=== PATIENT | male | born 1935 ===

== ENCOUNTER 2021-06-24 16:57 | Inpatient (IN) | payer MEDICARE ==
[~2021-06-24] VITALS: Ht 190.5 cm; Wt 73.8 kg
[2021-06-24 17:27] LABS: BASE EXCESS COOX 1 mmol/L (-3-3); HCO3 COOX 26 mmol/L (21-28); METHEMOGLOBIN 0.4 % (0.0-1.9); OXYHEMOGLOBIN 98.7 %; PCO2 COOX 41 mmHg (35-46); PO2 COOX 299 mmHg (65-108); SAT O2 COOX 99 % (92-99)
[2021-06-24 17:50] LABS: BASO % 0 % (0-3); EOS % 0 % (0-3); HEMATOCRIT 27.5 % (39.0-53.0); HEMOGLOBIN 8.7 g/dL (13.0-17.5); LYMPH # 14.3 x10^3/uL (1.0-4.8); LYMPH % 59 % (24-48); MEAN CORPUSCULAR HEMOGLOBIN 27 pg (25-35); MEAN CORPUSCULAR HGB CONC 32 g/dL (31-37); MEAN CORPUSCULAR VOLUME 84 fL (79-100); MONO # 0.3 x10^3/uL (0.0-1.1); MONO % 1 % (0-9); NEUT # 9.7 x10^3/uL (1.8-7.7); NEUT % 40 % (31-73); PLATELET COUNT 283 x10^3/uL (140-400); RED BLOOD COUNT 3.27 x10^6/uL (4.30-5.70); RED CELL DISTRIBUTION WIDTH 17.3 % (11.5-14.5); WHITE BLOOD COUNT 24.4 x10^3/uL (4.0-11.0)
[2021-06-24 18:00] LABS: PROTHROMBIN TIME PATIENT 15.1 SEC (11.7-14.0)
--- NOTE | 2021-06-24 18:03 | EKG ---
[facility] [address] [place] [address] Test Date: 2021-06-24 Test Time: 17:02:36 Pat Name: BLOSSOM CHAMPION Department: Room: Gender: M Inside Steward/Stewardess: : 1935 Requested By: MADELINE DE LEON Order Number: [id number] Reading MD: Parth Dinero MD Measurements Intervals [place] Rate: 88 P: 17 MS: 154 QRS: -38 QRSD: 122 T: 90 QT: 352 QTc: 429 Interpretive Statements SINUS RHYTHM LEFT ATRIAL ABNORMALITY ABNORMAL LEFT AXIS DEVIATION LVH WITH REPOLARIZATION ABNORMALITY ABNORMAL ECG Electronically Signed On 06-26-2021 13:57:27 STONE SETTER by Parth Dinero MD
[2021-06-24 18:05] LABS: D-DIMER 3.66 ug/mlFEU (0.00-0.50)
[2021-06-24 18:10] LABS: CALCIUM 8.6 mg/dL (8.5-10.1); CREATININE 3.4 mg/dL (0.7-1.3); GFR 17.3
[2021-06-24 18:16] LABS: ALBUMIN/GLOBULIN RATIO 0.5 (1.0-1.7); TOTAL BILIRUBIN 0.2 mg/dL (0.2-1.0)
[2021-06-24 18:40] LABS: BILIRUBIN,URINE NEGATIVE (NEG); CLARITY,URINE TURBID; COLOR,URINE YELLOW; NITRITE,URINE POSITIVE (NEG); PROTEIN,URINE 100 mg/dL (NEG-TRACE); UROBILINOGEN,URINE 0.2 mg/dL (0.2 mg/dL)
[2021-06-24 18:57] LABS: BACTERIA,URINE FEW /HPF (0-FEW); RBC,URINE FIELD OBSCURED /HPF (0-2); WBC,URINE TNTC /HPF (0-4)
[2021-06-24 18:58] LABS: INFLUENZA A PATIENT NEGATIVE (NEGATIVE); INFLUENZA B PATIENT NEGATIVE (NEGATIVE)
[2021-06-24 19:24] LABS: % BANDS 4 % (0-9); % LYMPHS 68 % (24-48); % MONOS 1 % (0-10); % SEGS 27 % (35-66)
[2021-06-24 19:27] LABS: ANISOCYTOSIS SLIGHT; OVALOCYTES MOD; PLT ESTIMATE ADEQUATE (ADEQUATE); SMUDGE CELLS PRESENT; TOXIC GRANULATION SLIGHT
--- NOTE | 2021-06-24 20:30 | RAD ---
Exam: CT of chest, abdomen and pelvis without contrast INDICATION: Abnormal cardiac labs, acute kidney injury TECHNIQUE: Sequential axial images through the chest, abdomen and pelvis obtained without IV contrast . Sagittal and coronal reformatted images were reconstructed from the axial data and reviewed. Exposure: One or more of the following in the visualized dose reduction techniques were utilized for this examination: 1. Automated exposure control 2. Adjustment of the MA and/or KV according to patient size 3. Use of iterative of reconstructive technique Comparisons: None FINDINGS: Visualized portions of the thyroid are unremarkable. No enlarged mediastinal lymph nodes are identifi ed. Heart size is normal. No pericardial effusion. Moderate coronary artery calcium lesions. Thoracic aor ta has a normal course and caliber. Pulmonary artery is not enlarged. Airways are patent. No consolidation or pneumothorax. No suspicious lung nodules are identified. Trace bilateral pleural effusions. Evaluation of solid organs is limited secondary to noncontrast technique. Liver, spleen, pancreas, and adrenals are unremarkable. Gallbladder is decompressed. There is moderate bilateral hydronephrosis and hydroureter without renal or ureteral calculi identifi ed. Bladder is decompressed with Campos in the bladder. Diffuse wall thickening is noted surrounding the b ladder with perivesicular fat stranding. Prostate is not well seen. Few scattered diverticula noted in the sigmoid colon without evidence of acute diverticulitis. Append ix is nonidentified. No free intra-abdominal air or fluid. No obstruction. Abdominal aorta has normal course and caliber. No enlarged intra-abdominal lymph nodes are identified. No suspicious osseous lesions or acute fractures. IMPRESSION: 1. Bilateral hydronephrosis and hydroureter without an obstructing stone or lesion identified. Findi ngs could represent sequela of chronic bladder outlet obstruction. 2. Bladder is decompressed with a Campos balloon in the bladder. There is perivesicular fat stranding . Correlate with urinalysis for infection. 3. Diverticulosis without evidence of acute diverticulitis. Electronically signed by: Janet Madison MD (06/24/2021 8:28 PM) [facility]
--- NOTE | 2021-06-24 20:40 | RAD ---
Exam: Chest one view INDICATION: Shortness of breath TECHNIQUE: Frontal view of the chest Comparisons: None FINDINGS: Sternotomy wires are noted. The cardiomediastinal silhouette and pulmonary vessels are within normal limits. Subtle patchy bilateral airspace disease. Trace left pleural effusion. IMPRESSION: Subtle patchy bilateral airspace disease. Electronically signed by: Janet Madison MD (06/24/2021 8:38 PM) [facility]
--- NOTE | 2021-06-24 22:02 | RAD ---
EXAM: RENAL ULTRASOUND CLINICAL HISTORY: Reason: Acute kidney injury / Spl. Instructions: / History: COMPARISON: None available. TECHNIQUE: Ultrasound examination of the bilateral kidneys and urinary bladder was performed. FINDINGS: Right kidney measures 13.1 cm in long axis. There is mild to moderate right-sided hydronephrosis. Left kidney measures 9.7 cm in long axis. There is [id number] left-sided hydronephrosis. Bladder is decompressed with Campos balloon noted in the bladder. Visualized portions aorta and IVC are unremarkable. IMPRESSION: Mild/moderate bilateral hydronephrosis. Electronically signed by: Janet Madison MD (06/24/2021 9:59 PM) [facility]
--- NOTE | 2021-06-24 22:20 | RAD ---
Bilateral lower extremity venous duplex study 06/24/2021 Clinical History: Elevated d-dimer. Leg swelling.. Technique: Using a combination of real time ultrasound imaging and color-flow and pulse Doppler imagi ng techniques along with graded compression and augmentation, duplex evaluation of the deep venous sy stem of the both lower extremities was performed. Multiple images were obtained. Findings: There is no sonographic evidence of deep venous thrombosis involving the visualized deep ve nous structures of either lower extremity. Impression: Negative study. Electronically signed by: Jose Alfredo Cowan MD (06/24/2021 10:18 PM) [id number]
[2021-06-24] MEDS ORDERED: HYDROmorphone 2 MG/ML VIAL IVP ONE (23:30)
--- NOTE | 2021-06-24 23:33 | PHYS DOC ---
Past Medical History Additional Past Medical Histor: pneumothorax, severe sepsis, uti, CKD, MS, GERD, Lymphoid Leukemia, Cardiac Past Surgical History: No Surgical History Smoking Status: Unknown if ever smoked Alcohol Use: None General Adult EDM: Chief Complaint: DYSPNEA/RESPIRATORY DISTRESS HPI: HPI: Patient is a 86-year-old patient presents to the emergency department via institute director transport on BiPAP for reported hypoxia of O2 sat 88% on room air. Patient has a history of recent cardiac arrest at [facility], dysphagia, GERD, malignant neoplasm of the bladder, atrial fibrillation, urinary retention, recent severe septic shock at [facility], kidney disease, essential hypertension, leukemia, pneumothorax, myocardial ischemia. Patient chief complaint is "I feel lousy "patient is currently on BiPAP, limited HPI. Review of Systems: Review of Systems: 14 body systems of review of systems have been reviewed. See HPI for pertinent positives and negative responses, otherwise all other systems are negative, nonpertinent or noncontributory. Constitutional: Negative except as outlined in HPI above. Skin: Negative except as outlined in HPI above. Eyes: Negative except as outlined in HPI above. HENT: Negative except as outlined in HPI above. Respiratory: Negative except as outlined in HPI above. Cardiovascular: Negative except as outlined in HPI above. GI: Negative except as outlined in HPI above. : Negative except as outlined in HPI above. Musculoskeletal: Negative except as outlined in HPI above. Integument: Negative except as outlined in HPI above. Neurologic: Negative except as outlined in HPI above. Endocrine: Negative except as outlined in HPI above. Lymphatic: Negative except as outlined in HPI above. Psychiatric: Negative except as outlined in HPI above. Heart Score: C/O Chest Pain: No Risk Factors: Risk Factors: DM, Current or recent (<one month) smoker, HTN, HLP, family history of CAD, obesity. Risk Scores: Score 0 - 3: 2.5% MACE over next 6 weeks - Discharge Home Score 4 - 6: 20.3% MACE over next 6 weeks - Admit for Clinical Observation Score 7 - 10: 72.7% MACE over next 6 weeks - Early Invasive Strategies Allergies: Allergies: Allergies Coded Allergies Type Severity Reaction Last Updated Verified ibuprofen Allergy Unknown UNKNOWN 06/24/21 Yes Physical Exam: PE: Constitutional: Well developed, well nourished, acute respiratory distress, toxic in appearance. Patient is on BiPAP related to acute respiratory failure. HENT: Normocephalic, atraumatic. Eyes: Conjunctiva normal, no discharge. Neck: Normal range of motion, no stridor. Cardiovascular: No cyanosis appreciated, distal cap refill less than 2 seconds. Regular rate and rhythm, heart sounds S1-S2 consultation. Lungs & Thorax: Patient is in no respiratory distress, no audible adventitious lung sounds appreciated. Decreased lung sounds bilateral bases, lung sounds diminished but clear upper lobes. Abdomen: Nontender, no abnormalities noted. Skin: Warm, dry, no erythema, no rash. Back: No tenderness, no deformities. Extremities: No tenderness, no cyanosis, no clubbing, ROM intact, no edema. Neurologic: Alert, normal motor function, normal sensory function, no focal deficits noted. Unable to determine orientation questions related to patient on BiPAP. Psychologic: Affect normal, judgement normal, mood normal. Current Patient Data: Labs: Laboratory Tests Test 06/24/21 17:15 06/24/21 17:17 06/24/21 18:12 06/24/21 18:31 White Blood Count 24.4 x10^3/uL (4.0-11.0) H Red Blood Count 3.27 x10^6/uL (4.30-5.70) L Hemoglobin 8.7 g/dL (13.0-17.5) L Hematocrit 27.5 % (39.0-53.0) L Mean Corpuscular Volume 84 fL (79-100) Mean Corpuscular Hemoglobin 27 pg (25-35) Mean Corpuscular Hemoglobin Concent 32 g/dL (31-37) Red Cell Distribution Width 17.3 % (11.5-14.5) H Platelet Count 283 x10^3/uL (140-400) Neutrophils (%) (Auto) 40 % (31-73) Lymphocytes (%) (Auto) 59 % (24-48) H Monocytes (%) (Auto) 1 % (0-9) Eosinophils (%) (Auto) 0 % (0-3) Basophils (%) (Auto) 0 % (0-3) Neutrophils # (Auto) 9.7 x10^3/uL (1.8-7.7) H Lymphocytes # (Auto) 14.3 x10^3/uL (1.0-4.8) H Monocytes # (Auto) 0.3 x10^3/uL (0.0-1.1) Eosinophils # (Auto) 0.0 x10^3/uL (0.0-0.7) Basophils # (Auto) 0.0 x10^3/uL (0.0-0.2) Segmented Neutrophils % 27 % (35-66) L Band Neutrophils % 4 % (0-9) Lymphocytes % 68 % (24-48) H Monocytes % 1 % (0-10) Smudge Cells Present Toxic Granulation Slight Dohle Bodies Few Platelet Estimate Adequate (ADEQUATE) Anisocytosis Slight Ovalocytes Mod Prothrombin Time 15.1 SEC (11.7-14.0) H Prothrombin Time INR 1.2 (0.8-1.1) H D-Dimer (Audrey) 3.66 ug/mlFEU (0.00-0.50) H Sodium Level 133 mmol/L (136-145) L Potassium Level 5.0 mmol/L (3.5-5.1) Chloride Level 99 mmol/L (98-107) Carbon Dioxide Level 27 mmol/L (21-32) Anion Gap 7 (6-14) Blood Urea Nitrogen 97 mg/dL (8-26) H Creatinine 3.4 mg/dL (0.7-1.3) H Estimated GFR (Cockcroft-Gault) 17.3 BUN/Creatinine Ratio 29 (6-20) H Glucose Level 129 mg/dL (70-99) H Lactic Acid Level 0.8 mmol/L (0.4-2.0) Calcium Level 8.6 mg/dL (8.5-10.1) Total Bilirubin 0.2 mg/dL (0.2-1.0) Aspartate Amino Transferase (AST) 50 U/L (15-37) H Alanine Aminotransferase (ALT) 56 U/L (16-63) Alkaline Phosphatase 181 U/L (46-116) H Creatine Kinase 84 U/L (39-308) Creatine Kinase MB (Mass) 2.2 ng/mL (0.0-3.6) Creatine Kinase MB Relative Index 2.6 % (0-4) Troponin I High Sensitivity 952 ng/L (4-75) H KZ-Tba-E-Type Natriuretic Peptide 9325 pg/mL (0-449) H Total Protein 6.0 g/dL (6.4-8.2) L Albumin 2.0 g/dL (3.4-5.0) L Albumin/Globulin Ratio 0.5 (1.0-1.7) L O2 Saturation 99 % (92-99) Arterial Blood pH 7.42 (7.35-7.45) Arterial Blood pCO2 at Patient Temp 41 mmHg (35-46) Arterial Blood pO2 at Patient Temp 299 mmHg (65-108) H Arterial Blood HCO3 26 mmol/L (21-28) Arterial Blood Base Excess 1 mmol/L (-3-3) Oxyhemoglobin 98.7 % Methemoglobin 0.4 % (0.0-1.9) Carbon Monoxide, Quantitative 0.3 % (0.0-1.9) FiO2 100 bipap Influenza Type A Antigen Negative (NEGATIVE) Influenza Type B Antigen Negative (NEGATIVE) SARS-CoV-2 Antigen (Rapid) Negative (NEGATIVE) Urine Collection Type Unknown Urine Color Yellow Urine Clarity Turbid Urine pH 6.0 (<5.0-8.0) Urine Specific [place] 1.010 (1.000-1.030) Urine Protein 100 mg/dL (NEG-TRACE) Urine Glucose (UA) Negative mg/dL (NEG) Urine Ketones (Stick) Negative mg/dL (NEG) Urine Blood Large (NEG) Urine Nitrite Positive (NEG) Urine Bilirubin Negative (NEG) Urine Urobilinogen Dipstick 0.2 mg/dL (0.2 mg/dL) Urine Leukocyte Esterase Large (NEG) Urine RBC Field obscured /HPF (0-2) Urine WBC Tntc /HPF (0-4) Urine Bacteria Few /HPF (0-FEW) Test 06/24/21 22:35 Troponin I High Sensitivity 1084 ng/L (4-75) H Laboratory Tests 06/24/21 17:15 Laboratory Tests 06/24/21 17:15 Vital Signs: Vital Signs Date Time Temp Pulse Resp B/P (MAP) Pulse Ox O2 Delivery O2 Flow Rate FiO2 06/24/21 21:00 100 BiPAP/CPAP 06/24/21 21:00 86 25 123/60 (81) 06/24/21 16:57 99.6 99.6 EKG: EKG: EKG performed at 1702 by ED nursing staff shows a normal sinus rhythm with left axis deviation heart rate 88 bpm, CT interval 0.154, QTc interval 0.429, no acute STEMI, no ACS, no acute ischemia appreciated, EKG interpreted by ED attending physician Dr. Drummond. Radiology/Procedures: Radiology/Procedures: PROCEDURE: RENAL COMPLETE BILATERAL EXAM: RENAL ULTRASOUND CLINICAL HISTORY: Reason: Acute kidney injury / Spl. Instructions: / History: COMPARISON: None available. TECHNIQUE: Ultrasound examination of the bilateral kidneys and urinary bladder was performed. FINDINGS: Right kidney measures 13.1 cm in long axis. There is mild to moderate right- sided hydronephrosis. Left kidney measures 9.7 cm in long axis. There is gvmz-dm-kthrfapa left-sided hydronephrosis. Bladder is decompressed with Campos balloon noted in the bladder. Visualized portions aorta and IVC are unremarkable. IMPRESSION: Mild/moderate bilateral hydronephrosis. Electronically signed by: Janet Madison MD (06/24/2021 9:59 PM) [facility] PROCEDURE: VENOUS LOWER EXT BILATERAL Bilateral lower extremity venous duplex study 06/24/2021 Clinical History: Elevated d-dimer. Leg swelling.. Technique: Using a combination of real time ultrasound imaging and color-flow and pulse Doppler imaging techniques along with graded compression and augme ntation, duplex evaluation of the deep venous system of the both lower extremities was performed. Multiple images were obtained. Findings: There is no sonographic evidence of deep venous thrombosis involving the visualized deep venous structures of either lower extremity. Impression: Negative study. Electronically signed by: Jose Alfredo Cowan MD (06/24/2021 10:18 PM) [id number] PROCEDURE: CT CHEST ABDOMEN PELVIS WO Exam: CT of chest, abdomen and pelvis without contrast INDICATION: Abnormal cardiac labs, acute kidney injury TECHNIQUE: Sequential axial images through the chest, abdomen and pelvis obtained without IV contrast. Sagittal and coronal reformatted images were r econstructed from the axial data and reviewed. Exposure: One or more of the following in the visualized dose reduction techniques were utilized for this examination: 1. Automated exposure control 2. Adjustment of the MA and/or KV according to patient size 3. Use of iterative of reconstructive technique Comparisons: None FINDINGS: Visualized portions of the thyroid are unremarkable. No enlarged mediastinal lymph nodes are identified. Heart size is normal. No pericardial effusion. Moderate coronary artery calcium lesions. Thoracic aorta has a normal course and caliber. Pulmonary artery is not enlarged. Airways are patent. No consolidation or pneumothorax. No suspicious lung nodules are identified. Trace bilateral pleural effusions. Evaluation of solid organs is limited secondary to noncontrast technique. Liver, spleen, pancreas, and adrenals are unremarkable. Gallbladder is deco mpressed. There is moderate bilateral hydronephrosis and hydroureter without renal or ureteral calculi identified. Bladder is decompressed with Campos in the bladder. Diffuse wall thickening is noted surrounding the bladder with perivesicular fat stranding. Prostate is not well seen. Few scattered diverticula noted in the sigmoid colon without evidence of acute diverticulitis. Appendix is nonidentified. No free intra-abdominal air or fluid. No obstruction. Abdominal aorta has normal course and caliber. No enlarged intra-abdominal lymph nodes are identified. No suspicious osseous lesions or acute fractures. IMPRESSION: 1. Bilateral hydronephrosis and hydroureter without an obstructing stone or lesion identified. Findings could represent sequela of chronic bladder outlet obstruction. 2. Bladder is decompressed with a Campos balloon in the bladder. There is perivesicular fat stranding. Correlate with urinalysis for infection. 3. Diverticulosis without evidence of acute diverticulitis. Electronically signed by: Janet Madison MD (06/24/2021 8:28 PM) [id number] PROCEDURE: CHEST AP ONLY Exam: Chest one view INDICATION: Shortness of breath TECHNIQUE: Frontal view of the chest Comparisons: None FINDINGS: Sternotomy wires are noted. The cardiomediastinal silhouette and pulmonary vessels are within normal limits. Subtle patchy bilateral airspace disease. Trace left pleural effusion. IMPRESSION: Subtle patchy bilateral airspace disease. Electronically signed by: Janet Madison MD (06/24/2021 8:38 PM) [facility] Course & Med Decision Making: Course & Med Decision Making Pertinent Labs and Imaging studies reviewed. (See chart for details) 86-year-old male, vital signs reviewed, resents emerged department concerning acute respiratory distress at his alf, the patient was put on BiPAP in route to the emergency department. Patient's general appearance was not hypoxic, did not appear to be in acute distress related to BiPAP placement, performed short trial with BiPAP mask removed, patient immediately started using accessory respiratory muscles, advanced in an acute respiratory distress, face was no longer pink in appearance, BiPAP mask replaced, patient recovered to previous state and under 1 minute. Will order CBC, CMP, cardiac isoenzymes, troponin I, pro NT BNP, D-dimer, lactic acid, chest x-ray, COVID-19 testing, ABG with coox, rapid flu testing. Urinalysis assay. Patient unable to urinate, ordered straight cath Campos as needed for urinalysis assay. Patient's labs impressive with leukocytosis without elevated lactic acid, D- dimer elevated, elevated proBNP, elevated troponin I, elevated creatinine, the patient's urine is infected, called and discussed patient case and ED work-up with Dr. Drummond at [address] who recommended patient [address] CT chest abdomen pelvis with venous Doppler of lower extremities concerning elevated D-dimer. Will order tests and review results with Dr. Drummond. CT chest abdomen pelvis concerning for hydronephrosis with hydroureter without obstruction, will order renal sonogram study. Lower extremity Doppler negative for DVT, renal sonogram study consistent with CT chest abdomen pelvis. Patient's chest x-ray shows mild atelectasis, called and discussed recommended studies with inpatient management physician Dr. Drummond who agrees patient's case and ED work-up warrants admission to the ICU, recommended continue BiPAP settings, FiO2 is currently at 40% with 100% O2 sat, patient's urine is infected and does have leukocytosis however patient is currently on cefdinir regimen for urinary tract infection, he patient's lactic acid is not elevated, will start patient on normal saline at 125 cc/h, admit to the ICU. Elevated troponin I high-sensitivity reviewed with Dr. Drummond, Dr. Drummond elected to defer cardiology consult at this time. Discussed recommended admission with patient and patient's DPOA at bedside, patient and patient's DPOA amenable with ED admission planning to ICU, patient expressed wishes to DO NOT RESUSCITATE in the event of cardiorespiratory arrest, patient's DPOA agrees that patient is a DO NOT RESUSCITATE. Dr. Drummond is aware of this. Patient case reviewed with ED attending physician Dr. Ibrahim who recommended patient be started on Rocephin IV related to abnormal urinalysis, 324 aspirin and heparin protocol related to elevation of troponin I for NSTEMI treatment. Orders wrote per Dr. Ibrahim's recommendations. Jorge Lon Disclaimer: Dragleyla Disclaimer: This electronic medical record was generated, in whole or in part, using a voice recognition dictation system. Departure Departure Impression: Primary Impression: Respiratory failure Qualified Codes: J96.01 - Acute respiratory failure with hypoxia Additional Impressions: Hypoxia Leukocytosis Qualified Codes: D72.829 - Elevated white blood cell count, unspecified Urinary tract infection Qualified Codes: N39.0 - Urinary tract infection, site not specified; R31.9 - Hematuria, unspecified Elevated d-dimer Elevated troponin Elevated brain natriuretic peptide (BNP) level Disposition: ADMITTED INPATIENT Admitting Physician: Madi. Johnson (Admit to ICU to Dr. Drummond) MADELINE DE LEON [employer]UR[employer] SUPERVISOR Jun 24, 2021 23:33
[2021-06-25] MEDS ORDERED: IV NORMAL SALINE 1000ML BAG 1,000 ML IV ONE (00:15)
[2021-06-25] MEDS ORDERED: fentaNYL PF VIAL 100 MCG/2 ML VIAL IVP PRN (00:15)
[2021-06-25] MEDS ORDERED: ASPIRIN CHEWABLE 81 MG TABLET. PO ONE (01:45)
[2021-06-25] MEDS ORDERED: cefTRIAXone IV Push 1 GM VIAL. IVP ONE (01:45)
[2021-06-25 02:15] VITALS: BP 106/44
[2021-06-25] MEDS: HEPARIN 25,000UTS/250ML PREMIX 250 ML IV PRN ×2 (02:24→22:23)
[2021-06-25] MEDS ORDERED: INFLUENZA VAX SCREEN BY RX. MC ONE (03:15)
[2021-06-25] MEDS ORDERED: C.DIFF MED SCREEN BY RX. MC ONE (03:15)
[2021-06-25] MEDS ORDERED: TRAM100T2 PO (03:31)
[2021-06-25] MEDS ORDERED: POLY2500 PO (03:31)
[2021-06-25] MEDS ORDERED: CHOL10004 PO (03:31)
[2021-06-25] MEDS ORDERED: GLUC-11 PO (03:31)
[2021-06-25] MEDS ORDERED: MULT-245 PO (03:31)
[2021-06-25] MEDS ORDERED: ASPI-886 PO (03:31)
[2021-06-25] MEDS ORDERED: SENN1TAB37 PO (03:31)
[2021-06-25] MEDS ORDERED: TRAM50TA PO (03:31)
[2021-06-25] MEDS ORDERED: CEFD300C PO (03:31)
[2021-06-25] MEDS ORDERED: CRESTOR40 MG PO (03:31)
[2021-06-25] MEDS ORDERED: LISI10TA16 PO (03:31)
[2021-06-25] MEDS ORDERED: ACET500T68 PO (03:31)
[2021-06-25] MEDS ORDERED: TAMS0.4C97 PO (03:31)
--- NOTE | 2021-06-25 06:29 | NUR ---
Pharmacy Medication Review S: Consulted for medication review re: C.diff Risk Assessment score of 7 O: CHAMPIONBLOSSOM Cam is a 86 year old with: Previous C.diff infection: No Previous hospitalization: Within 30 days Recent antibiotics: Within 30 days Use of gastric acid suppressor: No Transfer from [facility]/LTAC: Yes Current antibiotic regimen: CEFTRIAXONE X 1 Current acid suppression regimen: NONE A: Patient has been identified as having risk factors for C.diff infection as noted above. P: ABX DE-ESCALATION RECOMMENDED: NO, PT HAS INFECTION PROBIOTIC ORDERED: YES PPI CHANGED TO [id number]: N/A UBALDO ABURTO [facility], 06/25/21 0629
[2021-06-25 07:00] VITALS: BP 114/40
[2021-06-25] MEDS ORDERED: POLYETHYLENE GLYCOL 3350 17 GM PACKET. PO PRN (09:00)
[2021-06-25] MEDS ORDERED: FLU VACC QUAD 21-22 (6MOS+) PF 0.5 ML SYRINGE. VAX IM ONE (09:00)
[2021-06-25] MEDS ORDERED: PIP/TAZO PER PHARMACY MC PRN (09:00)
[2021-06-25] MEDS ORDERED: ACETAMINOPHEN 500 MG TABLET PO PRN (09:00)
[2021-06-25] MEDS ORDERED: SENNOSIDES/DOCUSATE 8.6/50MG TABLET. PO PRN (09:00)
[2021-06-25] MEDS: CHOLECALCIFEROL (VITAMIN D3) 1,000 UNIT TABLET PO SCH (09:08)
[2021-06-25] MEDS: PIPERACILLIN/TAZOBACTAM 2.25 GM in IV NORMAL SALINE 50ML 50 ML IV SCH ×3 (09:08→22:15)
[2021-06-25] MEDS: MULTIVITAMIN with MINERAL TABLET. PO SCH (09:08)
[2021-06-25] MEDS: TAMSULOSIN 0.4 MG CAP.ER.24H. PO SCH (09:08)
[2021-06-25] MEDS: LACTOBACILLUS RHAMNOSUS GG 1 CAPSULE. PO SCH ×2 (09:08→21:06)
[2021-06-25 09:18] LABS: ALBUMIN 1.8 g/dL (3.4-5.0); ALBUMIN/GLOBULIN RATIO 0.5 (1.0-1.7); CALCIUM 8.4 mg/dL (8.5-10.1); CREATININE 3.2 mg/dL (0.7-1.3); GFR 18.6; POTASSIUM 4.4 mmol/L (3.5-5.1); TOTAL BILIRUBIN 0.3 mg/dL (0.2-1.0); TOTAL PROTEIN 5.3 g/dL (6.4-8.2)
[2021-06-25 09:22] LABS: HEMATOCRIT 23.5 % (39.0-53.0); HEMOGLOBIN 7.5 g/dL (13.0-17.5); RED BLOOD COUNT 2.78 x10^6/uL (4.30-5.70); RED CELL DISTRIBUTION WIDTH 17.5 % (11.5-14.5); WHITE BLOOD COUNT 15.7 x10^3/uL (4.0-11.0)
[2021-06-25 11:00] VITALS: BP 88/42
--- NOTE | 2021-06-25 11:32 | HP ---
DATE OF SERVICE: 06/25/2021 ADMIT DATE: 06/24/2021 HISTORY OF PRESENT ILLNESS: The patient is an 86-year-old male patient whom I have seen yesterday at [facility] [place] in [place]. He was discharged recently from [facility] where he presented there with gross hematuria, urinary tract infection, acute kidney injury and apparently sustained a pulseless electrical activity cardiac arrest from which he was successfully resuscitated and thereafter stabilization, he was transferred to [facility] [place] for rehabilitation. When I saw him yesterday, he was extremely tachypneic, hypoxic and his kidney function has dramatically worsened compared to his creatinine which was 0.9 in the hospital and has risen to 3 mg on repeat lab work at [facility] [place] in [place]. Given his tachypnea, hypoxia and worsening kidney function, I recommended the patient be transferred back to [facility] and for some reason they refused to take him as he is not in their catchment area, although almost all patients from [facility] [place] usually end up at [facility]. In any case, he came to the Emergency Room of [facility] where he was evaluated and was started on BiPAP machine as he was hypoxic. His lab work continued to show leukocytosis; however, he is known to have chronic lymphatic leukemia. His blood gases surprisingly were unremarkable. In fact, his pH was 7.42, pCO2 of 41, pO2 of 299, bicarbonate 26 and oxygen saturation was 100%. He has normochromic normocytic anemia; however, his platelet counts are normal. His prothrombin time and INR slightly prolonged and his D-dimer was high at 3.66. His chemistry showed that his BUN is 97, creatinine 3.4 and his BNP was high at 9325. His troponin was elevated at 952 and 1084, although the patient himself did not complain of any chest pain. His urinalysis showed the urine was yellow, turbid with a pH of 6. The urine was positive for small amount of protein, negative for glucose, ketones, large amount of blood, positive for nitrite and there was large amount of leukocyte esterase and too numerous to count wbc's. He has had multiple imaging modalities including chest x-ray, which showed that the patient has subtle patchy bilateral airspace disease and trace left pleural effusion. The CT scan of the chest, abdomen and pelvis done without contrast. His kidney function was abnormal, showed that the patient has bilateral hydronephrosis and hydroureter without obstructing stone or lesion identified. Findings could represent sequela of chronic bladder outlet obstruction. Number 2, bladder is decompressed with a Campos balloon in the bladder. There is perivesical fat stranding, correlate with urinalysis for infection. Also, has diverticulosis without evidence of acute diverticulitis. Given his hypoxia and elevated D-dimer, he underwent bilateral lower extremity Doppler ultrasound, which showed there is no sonographic evidence of deep vein thrombosis involving visualized deep venous structure of both lower extremities and renal ultrasound showed that the right kidney measures 13.1 cm in long axis. There is [id number] right-sided hydronephrosis. The left kidney measures 9.7 cm in long axis. There is [id number] left-sided hydronephrosis. Bladder is decompressed with Campos balloon noted in the bladder. The visualized portion of the aorta and IVC are unremarkable. The patient was admitted with acute on chronic kidney injury, acute hypoxic respiratory failure, and normochromic normocytic anemia. He has also chronic lymphatic leukemia and elevated troponin and possible bilateral lung infiltrate. PAST MEDICAL HISTORY: Significant for malignant neoplasm of the bladder. He apparently underwent cardiac arrest with unspecified cause. Has a history of pneumothorax, dysphagia, chronic lymphatic leukemia, hypertension, paroxysmal atrial fibrillation, gastroesophageal reflux disease, chronic kidney disease, and urinary retention. PAST SURGICAL HISTORY: Unobtainable as the patient is very confused. ALLERGIES: HE IS ALLERGIC TO IBUPROFEN. MEDICATIONS: He is currently on the following medication: He is on Tylenol Extra Strength 1000 mg every 6 hours and low dose aspirin 81 mg once a day. He is on cefdinir 300 mg 1 tablet once a day for 7 days, cholecalciferol 1000 units once a day, Flomax 0.4 mg at bedtime, glucosamine chondroitin sulfate 1 tablet twice a day, lisinopril 10 mg once a day, and multivitamin 1 tablet once a day. He is also on Ritalin glycol 17 grams daily, Crestor, calcium 20 mg once a day, Senna-S one tablet once a day, tramadol 50 mg 1 tablet once a day, and tramadol 50 mg 2 tablets at bedtime for pain. FAMILY HISTORY: Unobtainable. SOCIAL HISTORY: He is currently residing at [facility] [place]. He does not smoke, drink alcohol or use recreational drugs. He is very confused. I cannot really get more information from him. PHYSICAL EXAMINATION: GENERAL: On arrival to the Emergency Room, he was pale, but not jaundiced or cyanosed. No lymphadenopathy. No thyromegaly. No jugular venous distention. No limb edema. VITAL SIGNS: His heart rate was 89, blood pressure was 209/128, temperature was 99.6, respiratory rate was 34 and oxygen saturation was 100% on BiPAP machine. HEAD, EYES, EARS, NOSE, AND THROAT: Normocephalic, atraumatic. NECK: Supple. HEART: Normal first and second heart sounds. No gallop, rub or murmur. CHEST: Shows central trachea, equal bilateral expansion, air entry, vesicular breath sounds. I could not really appreciate any crepitation or rhonchi anteriorly. ABDOMEN: Scaphoid, soft. Tenderness mostly in the suprapubic catheter area. No guarding or rigidity. No organomegaly. All hernial orifice intact. Bowel sounds normal. NEUROLOGIC: He is very confused, but without any obvious lateralizing sign. LABORATORY DATA: On arrival showed a white cell count 24,400, hemoglobin 8.7, hematocrit 27.5, MCV 84 and platelet count 283,000. His arterial blood gas showed a pH of 7.42, pCO2 of 41, pO2 of 299, bicarbonate 26, anion gap of 1, and oxygen saturation was 100% on BiPAP machine. His prothrombin time was 15.1, INR 1.2, and APTT was 54. D-dimer was 3.66. His chemistry showed a serum sodium 133, potassium 5, chloride 99, bicarbonate 27, anion gap of 7, BUN 97, and creatinine 3.4. Estimated GFR was 17 mL per minute. His glucose 129. Lactic acid was 0.8 and calcium was 8.6. Total bilirubin and ALT normal. AST and alkaline phosphatase slightly elevated. CK was 84. Troponin I high sensitivity was 952 and beta natriuretic peptide was 9326 and his total protein was 6 and albumin was 2. His urinalysis showed the urine was yellow, turbid with a pH of 6, specific gravity of 1.010. There was small amount of protein. The urine was negative for glucose, ketones, large amount of blood, positive for nitrite, large amount of leukocyte esterase, large amount of rbc's and too numerous to count wbc's. ASSESSMENT AND PLAN: In summary, this is an 86-year-old male patient who was admitted with marked tachypnea and acute hypoxic respiratory failure, acute on chronic kidney injury. He has leukocytosis with a manual differential consistent with chronic lymphatic leukemia and normochromic normocytic anemia. He has bladder cancer and bilateral hydronephrosis. He apparently also was sent in [facility] recently with sepsis due to Enterococcus and had had unspecified cardiac arrest. It was pulseless electrical activity cardiac arrest. He had also pneumothorax that required chest tube placement and removal. The patient is known to have paroxysmal atrial fibrillation and history of urinary retention. My plan is to consult the signal mechanic and form grader operator. For possible pneumonia, I will start him on antibiotic in the form of Zosyn 2.25 grams IV every 8 hours and I tried to get some more records from [facility]; however, the patient is very confused and was unable to sign the release form. Meanwhile, we will resume all his medication. FITZ DR: Jaswant TID: [id number]
[2021-06-25] MEDS: traMADol 50 MG TABLET PO PRN ×2 (11:48→21:07)
--- NOTE | 2021-06-25 13:11 | PDOC2 ---
CONSULT Date of Consult Date of Consult DATE: 06/25/21 TIME: 13:00 Reason for Consult Reason for Consult: Acute on chronic renal insufficiency Referring Physician Referring Physician: Bhanu Identification/Chief Complaint Chief Complaint Altered mental status Source Source: Caregiver, Chart review History of Present Illness Reason for Visit: Patient is an 86-year-old gentleman was known to have a history of bladder cancer. He is followed by urologist at [facility]. Based on review of his electronic records it appears that he was recently discharged from there after an episode of gross hematuria, UTI, acute kidney injury. He was at a local healthcare rehabilitation center. He was evaluated by Dr. Drummond at the rehab facility and was noted to be tachypneic, hypoxic whereby his creatinine had gone from 0.9-3.0 and hence he was brought to this facility here. It is noted that [facility] was on diversion. Patient's family is not aware of known history of hydronephrosis per se. Patient is felt to be septic at this time. Was initially started on BiPAP for hypoxemia. He is currently on nasal cannula oxygen. He is also known to have a history of CLL. His troponins are noted to be elevated. Campos catheter was placed and is draining initially pus and now grossly bloody looking urine CT scan done through the ER showed that the patient has bilateral hydronephrosis and hydroureter without obstructing stone or lesion identified. We were asked to see him for renal insufficiency Past Medical History Past Medical History Significant for malignant neoplasm of the bladder. He apparently underwent cardiac arrest/PEA on his recent hospitalization. has a history of pneumothorax, dysphagia, chronic lymphatic leukemia, hypertension, paroxysmal atrial fibrillation, gastroesophageal reflux disease, chronic kidney disease, and urinary retention. Family History Family History Noncontributory due to advanced age Social History Social History Usually lives with his daughter and reportedly is very functional but currently at her nursing/rehab facility Lives: with Family Current Problem List Problem List Problems Medical Problems: (1) Leukocytosis Status: Acute (2) Respiratory failure Status: Acute (3) Urinary tract infection Status: Acute Current Medications Current Medications Current Medications Hydromorphone HCl (Dilaudid) 1 mg 1X ONCE IVP Last administered on 06/24/21at 23:40; Start 06/24/21 at 23:30; Stop 06/24/21 at 23:31; Status DC Sodium Chloride 1,000 ml @ 125 mls/hr 1X ONCE IV Last administered on 06/25/21at 00:15; Start 06/25/21 at 00:15; Stop 06/25/21 at 08:14; Status DC Fentanyl Citrate (Fentanyl 2ml Vial) 50 mcg PRN Q1HR PRN IVP PAIN; Start 06/25/21 at 00:15; Stop 06/26/21 at 00:14 Ceftriaxone Sodium (Rocephin) 1 gm 1X ONCE IVP Last administered on 06/25/21at 02:19; Start 06/25/21 at 01:45; Stop 06/25/21 at 01:46; Status DC Aspirin (Aspirin Chewable) 324 mg 1X ONCE PO Last administered on 06/25/21at 02:43; Start 06/25/21 at 01:45; Stop 06/25/21 at 02:36; Status DC Heparin Sodium/ Dextrose 250 ml @ 9.852 mls/ hr CONT PRN IV PER PROTOCOL Last administered on 06/25/21at 02:24; Start 06/25/21 at 01:45 Heparin Sodium (Porcine) (Heparin Sodium) 2,050 unit PRN Q6HRS PRN IV FOR UFH L EVEL LESS THAN 0.2; Start 06/25/21 at 01:45 Info (FLU VACCINE SCREEN per RX) 1 each 1X ONCE MC ; Start 06/25/21 at 03:15; Stop 06/25/21 at 03:16; Status UNV Pharmacy Consult (C.diff Med Screen By Rx) 1 each 1X ONCE MC ; Start 06/25/21 at 03:15; Stop 06/25/21 at 03:16; Status Cancel Influenza Virus Vaccine Quadrival (Flulaval Quad [id number] Syringe) 0.5 ml ONCE ONCE VAX IM ; Start 06/25/21 at 09:00; Stop 06/25/21 at 09:01; Status DC Lactobacillus Rhamnosus (Culturelle) 1 cap BID PO Last administered on 06/25/21at 09:08; Start 06/25/21 at 09:00 Acetaminophen (Tylenol) 1,000 mg PRN Q6HRS PRN PO MILD PAIN, TEMP; Start at 09:00 Vitamin D (Vitamin D3) 1,000 unit DAILY PO Last administered on 06/25/21at 09:08; Start 06/25/21 at 09:00 Senna/Docusate Sodium (Senna Plus) 1 tab PRN BID PRN PO CONSTIPATION; Start 06/25/21 at 09:00 Tamsulosin HCl (Flomax) 0.4 mg DAILY PO Last administered on 06/25/21at 09:08; Start 06/25/21 at 09:00 Tramadol HCl (Ultram) 50 mg PRN BID PRN PO MODERATE PAIN Last administered on 06/25/21at 11:48; Start 06/25/21 at 09:00 Multivitamins (Thera M Plus) 1 tab DAILY PO Last administered on 06/25/21at 09:08; Start 06/25/21 at 09:00 Polyethylene Glycol (miraLAX PACKET) 17 gm PRN DAILY PRN PO CONSTIPATION, 1ST CHOICE; Start 06/25/21 at 09:00 Atorvastatin Calcium (Lipitor) 80 mg QHS PO ; Start 06/25/21 at 21:00 Tramadol HCl (Ultram) 100 mg PRN QHS PRN PO PAIN; Start 06/25/21 at 21:00 Piperacillin Sod/ Tazobactam Sod (Zosyn Per Pharmacy) 1 each PRN DAILY PRN MC SEE COMMENTS; Start 06/25/21 at 09:00 Piperacillin Sod/ Tazobactam Sod 2.25 gm/Sodium Chloride 50 ml @ 100 mls/hr Q8HRS IV Last administered on 06/25/21at 09:08; Start 06/25/21 at 09:00 Active Scripts Active Reported Tramadol Hcl 100 Mg Tbmp.24hr 100 Mg PO PRN QHS PRN Tramadol Hcl 50 Mg Tablet 50 Mg PO PRN BID PRN Sennosides-Docusate Sodium Tab (Sennosides/Docusate Sodium) 1 Each Tablet 1 Each PO PRN BID PRN Crestor (Rosuvastatin Calcium) 40 Mg Tablet 20 Mg PO HS Polyethylene Glycol 3350 2,500 Gm Powder 17 Gm PO PRN DAILY PRN 30 Days Multi Vitamin Daily (Multivitamin) 1 Each Tablet 1 Tab PO DAILY 30 Days Lisinopril 10 Mg Tablet 10 Mg PO DAILY Cidaflex Tablet (Glucosamine Hcl/Chondr Alicea A Na) 1 Each Tablet 1 Tab PO BID 30 Days Flomax (Tamsulosin Hcl) 0.4 Mg Cap.er.24h 0.4 Mg PO DAILY Vitamin D3 (Vitamin D) 25 Mcg Tablet 25 Mcg PO DAILY 1,000 UNITS = 25 MCG Cefdinir 300 Mg Capsule 300 Mg PO BID 7 Days Aspirin Ec (Aspirin) 81 Mg Tablet.dr 1 Tab PO DAILY Acetaminophen 500 Mg Tablet 2 Tab PO PRN Q6HRS PRN 15 Days Allergies Allergies: Coded Allergies: ibuprofen (Verified Allergy, Unknown, UNKNOWN, 06/25/21) TOLERATES ASA ROS Review of System Patient remains confused and is unable to get much in terms of history/ROS from him Physical Exam Physical Exam General Appearance: Awake, but very confused Eyes: Sclera anicteric conjunctiva Normal EN: No EN Drainage Mucous Memb. Dry Neck: no JVD no JVP Supple no Thyromegaly CVS: S1 S2 no obvious murmur No Gallop No Rub no edema Resp: Rare basal Rales no Rhonchi no Acc. Muscle use GI: BAS +ve NO Bruit Non Tender Non Distended : no CVA tenderness; minimal suprapubic Tenderness discomfort SKIN: No visible petechial rashes Breast Exam deferred Mu.Sk: Limited ROM possible age-related muscle Atrophy Heme: Unable to palpate Obvious LAD ? Splenomegaly NEURO: Decreased strength, does not follow commands for neuro assessment Psych: ? Depressed no Active hallucination Vital Signs Vital Signs Date Time Temp Pulse Resp B/P (MAP) Pulse Ox O2 Delivery O2 Flow Rate FiO2 06/25/21 11:48 23 97 2.0 06/25/21 11:00 97.7 89 88/42 (57) BiPAP/CPAP 97.7 Assessment & Plan Acute kidney injury: Presumably in the setting of bilateral hydronephrosis. Campos catheter has been placed. Watch trend of creatinine with Campos in place. Pyelonephritis cannot be ruled out given significant pyuria when Campos catheter was placed. Hydronephrosis: Presumably associated with history of bladder cancer. Will need urology evaluation, the services are not available at this hospital and hence would be appropriate to transfer him to hospital facility with the same services. Preferably back to [facility] where his urologist practice. Percutaneous nephrostomy versus repeat cystoscopy for stent placement will need to be consid ered Possible sepsis and septic shock cannot be ruled out Hypotension presumably due to gram-negative sepsis. IV albumin will be administered cautiously in setting of positive troponins. Patient does have a history of recent PEA: Cardiology consultation if required For candidacy for dialysis if need arises, I feel he is a very poor candidate This was discussed extensively with the daughter and son at bedside Labs Labs Laboratory Tests Test 06/24/21 17:15 06/24/21 17:17 06/24/21 18:12 06/24/21 18:31 White Blood Count 24.4 x10^3/uL (4.0-11.0) Red Blood Count 3.27 x10^6/uL (4.30-5.70) Hemoglobin 8.7 g/dL (13.0-17.5) Hematocrit 27.5 % (39.0-53.0) Mean Corpuscular Volume 84 fL (79-100) Mean Corpuscular Hemoglobin 27 pg (25-35) Mean Corpuscular Hemoglobin Concent 32 g/dL (31-37) Red Cell Distribution Width 17.3 % (11.5-14.5) Platelet Count 283 x10^3/uL (140-400) Neutrophils (%) (Auto) 40 % (31-73) Lymphocytes (%) (Auto) 59 % (24-48) Monocytes (%) (Auto) 1 % (0-9) Eosinophils (%) (Auto) 0 % (0-3) Basophils (%) (Auto) 0 % (0-3) Neutrophils # (Auto) 9.7 x10^3/uL (1.8-7.7) Lymphocytes # (Auto) 14.3 x10^3/uL (1.0-4.8) Monocytes # (Auto) 0.3 x10^3/uL (0.0-1.1) Eosinophils # (Auto) 0.0 x10^3/uL (0.0-0.7) Basophils # (Auto) 0.0 x10^3/uL (0.0-0.2) Segmented Neutrophils % 27 % (35-66) Band Neutrophils % 4 % (0-9) Lymphocytes % 68 % (24-48) Monocytes % 1 % (0-10) Smudge Cells Present Toxic Granulation Slight Dohle Bodies Few Platelet Estimate Adequate (ADEQUATE) Anisocytosis Slight Ovalocytes Mod Prothrombin Time 15.1 SEC (11.7-14.0) Prothromb Time International Ratio 1.2 (0.8-1.1) D-Dimer (Audrey) 3.66 ug/mlFEU (0.00-0.50) Sodium Level 133 mmol/L (136-145) Potassium Level 5.0 mmol/L (3.5-5.1) Chloride Level 99 mmol/L (98-107) Carbon Dioxide Level 27 mmol/L (21-32) Anion Gap 7 (6-14) Blood Urea Nitrogen 97 mg/dL (8-26) Creatinine 3.4 mg/dL (0.7-1.3) Estimated GFR (Cockcroft-Gault) 17.3 BUN/Creatinine Ratio 29 (6-20) Glucose Level 129 mg/dL (70-99) Lactic Acid Level 0.8 mmol/L (0.4-2.0) Calcium Level 8.6 mg/dL (8.5-10.1) Total Bilirubin 0.2 mg/dL (0.2-1.0) Aspartate Amino Transf (AST/SGOT) 50 U/L (15-37) Alanine Aminotransferase (ALT/SGPT) 56 U/L (16-63) Alkaline Phosphatase 181 U/L (46-116) Creatine Kinase 84 U/L (39-308) Creatine Kinase MB (Mass) 2.2 ng/mL (0.0-3.6) Creatine Kinase MB Relative Index 2.6 % (0-4) Troponin I High Sensitivity 952 ng/L (4-75) UD-Lcu-G-Type Natriuretic Peptide 9325 pg/mL (0-449) Total Protein 6.0 g/dL (6.4-8.2) Albumin 2.0 g/dL (3.4-5.0) Albumin/Globulin Ratio 0.5 (1.0-1.7) O2 Saturation 99 % (92-99) Arterial Blood pH 7.42 (7.35-7.45) Arterial Blood pCO2 at Patient Temp 41 mmHg (35-46) Arterial Blood pO2 at Patient Temp 299 mmHg (65-108) Arterial Blood HCO3 26 mmol/L (21-28) Arterial Blood Base Excess 1 mmol/L (-3-3) Oxyhemoglobin 98.7 % Methemoglobin 0.4 % (0.0-1.9) Carbon Monoxide, Quantitative 0.3 % (0.0-1.9) FiO2 100 bipap Influenza Type A Antigen Negative (NEGATIVE) Influenza Type B Antigen Negative (NEGATIVE) SARS-CoV-2 RNA (YEIMI) Negative (Negative) SARS-CoV-2 Antigen (Rapid) Negative (NEGATIVE) Urine Collection Type Unknown Urine Color Yellow Urine Clarity Turbid Urine pH 6.0 (<5.0-8.0) Urine Specific Lefors 1.010 (1.000-1.030) Urine Protein 100 mg/dL (NEG-TRACE) Urine Glucose (UA) Negative mg/dL (NEG) Urine Ketones (Stick) Negative mg/dL (NEG) Urine Blood Large (NEG) Urine Nitrite Positive (NEG) Urine Bilirubin Negative (NEG) Urine Urobilinogen Dipstick 0.2 mg/dL (0.2 mg/dL) Urine Leukocyte Esterase Large (NEG) Urine RBC Field obscured /HPF (0-2) Urine WBC Tntc /HPF (0-4) Urine Bacteria Few /HPF (0-FEW) Test 06/24/21 22:35 06/25/21 03:45 06/25/21 08:40 Troponin I High Sensitivity 1084 ng/L (4-75) 808 ng/L (4-75) Activated Partial Thromboplast Time 54 SEC (24-38) White Blood Count 15.7 x10^3/uL (4.0-11.0) Red Blood Count 2.78 x10^6/uL (4.30-5.70) Hemoglobin 7.5 g/dL (13.0-17.5) Hematocrit 23.5 % (39.0-53.0) Mean Corpuscular Volume 84 fL (79-100) Mean Corpuscular Hemoglobin 27 pg (25-35) Mean Corpuscular Hemoglobin Concent 32 g/dL (31-37) Red Cell Distribution Width 17.5 % (11.5-14.5) Platelet Count 250 x10^3/uL (140-400) Heparin Anti-Xa Act, Unfractionated < 0.10 IU/mL (0.30-0.70) Sodium Level 138 mmol/L (136-145) Potassium Level 4.4 mmol/L (3.5-5.1) Chloride Level 103 mmol/L (98-107) Carbon Dioxide Level 25 mmol/L (21-32) Anion Gap 10 (6-14) Blood Urea Nitrogen 94 mg/dL (8-26) Creatinine 3.2 mg/dL (0.7-1.3) Estimated GFR (Cockcroft-Gault) 18.6 BUN/Creatinine Ratio 29 (6-20) Glucose Level 93 mg/dL (70-99) Calcium Level 8.4 mg/dL (8.5-10.1) Total Bilirubin 0.3 mg/dL (0.2-1.0) Aspartate Amino Transf (AST/SGOT) 35 U/L (15-37) Alanine Aminotransferase (ALT/SGPT) 45 U/L (16-63) Alkaline Phosphatase 154 U/L (46-116) Total Protein 5.3 g/dL (6.4-8.2) Albumin 1.8 g/dL (3.4-5.0) Albumin/Globulin Ratio 0.5 (1.0-1.7) Laboratory Tests Test 06/24/21 17:15 06/24/21 17:17 06/24/21 18:12 06/24/21 18:31 White Blood Count 24.4 x10^3/uL (4.0-11.0) Red Blood Count 3.27 x10^6/uL (4.30-5.70) Hemoglobin 8.7 g/dL (13.0-17.5) Hematocrit 27.5 % (39.0-53.0) Mean Corpuscular Volume 84 fL (79-100) Mean Corpuscular Hemoglobin 27 pg (25-35) Mean Corpuscular Hemoglobin Concent 32 g/dL (31-37) Red Cell Distribution Width 17.3 % (11.5-14.5) Platelet Count 283 x10^3/uL (140-400) Neutrophils (%) (Auto) 40 % (31-73) Lymphocytes (%) (Auto) 59 % (24-48) Monocytes (%) (Auto) 1 % (0-9) Eosinophils (%) (Auto) 0 % (0-3) Basophils (%) (Auto) 0 % (0-3) Neutrophils # (Auto) 9.7 x10^3/uL (1.8-7.7) Lymphocytes # (Auto) 14.3 x10^3/uL (1.0-4.8) Monocytes # (Auto) 0.3 x10^3/uL (0.0-1.1) Eosinophils # (Auto) 0.0 x10^3/uL (0.0-0.7) Basophils # (Auto) 0.0 x10^3/uL (0.0-0.2) Segmented Neutrophils % 27 % (35-66) Band Neutrophils % 4 % (0-9) Lymphocytes % 68 % (24-48) Monocytes % 1 % (0-10) Smudge Cells Present Toxic Granulation Slight Dohle Bodies Few Platelet Estimate Adequate (ADEQUATE) Anisocytosis Slight Ovalocytes Mod Prothrombin Time 15.1 SEC (11.7-14.0) Prothromb Time International Ratio 1.2 (0.8-1.1) D-Dimer (Audrey) 3.66 ug/mlFEU (0.00-0.50) Sodium Level 133 mmol/L (136-145) Potassium Level 5.0 mmol/L (3.5-5.1) Chloride Level 99 mmol/L (98-107) Carbon Dioxide Level 27 mmol/L (21-32) Anion Gap 7 (6-14) Blood Urea Nitrogen 97 mg/dL (8-26) Creatinine 3.4 mg/dL (0.7-1.3) Estimated GFR (Cockcroft-Gault) 17.3 BUN/Creatinine Ratio 29 (6-20) Glucose Level 129 mg/dL (70-99) Lactic Acid Level 0.8 mmol/L (0.4-2.0) Calcium Level 8.6 mg/dL (8.5-10.1) Total Bilirubin 0.2 mg/dL (0.2-1.0) Aspartate Amino Transf (AST/SGOT) 50 U/L (15-37) Alanine Aminotransferase (ALT/SGPT) 56 U/L (16-63) Alkaline Phosphatase 181 U/L (46-116) Creatine Kinase 84 U/L (39-308) Creatine Kinase MB (Mass) 2.2 ng/mL (0.0-3.6) Creatine Kinase MB Relative Index 2.6 % (0-4) Troponin I High Sensitivity 952 ng/L (4-75) JO-Dcr-A-Type Natriuretic Peptide 9325 pg/mL (0-449) Total Protein 6.0 g/dL (6.4-8.2) Albumin 2.0 g/dL (3.4-5.0) Albumin/Globulin Ratio 0.5 (1.0-1.7) O2 Saturation 99 % (92-99) Arterial Blood pH 7.42 (7.35-7.45) Arterial Blood pCO2 at Patient Temp 41 mmHg (35-46) Arterial Blood pO2 at Patient Temp 299 mmHg (65-108) Arterial Blood HCO3 26 mmol/L (21-28) Arterial Blood Base Excess 1 mmol/L (-3-3) Oxyhemoglobin 98.7 % Methemoglobin 0.4 % (0.0-1.9) Carbon Monoxide, Quantitative 0.3 % (0.0-1.9) FiO2 100 bipap Influenza Type A Antigen Negative (NEGATIVE) Influenza Type B Antigen Negative (NEGATIVE) SARS-CoV-2 RNA (YEIMI) Negative (Negative) SARS-CoV-2 Antigen (Rapid) Negative (NEGATIVE) Urine Collection Type Unknown Urine Color Yellow Urine Clarity Turbid Urine pH 6.0 (<5.0-8.0) Urine Specific Lefors 1.010 (1.000-1.030) Urine Protein 100 mg/dL (NEG-TRACE) Urine Glucose (UA) Negative mg/dL (NEG) Urine Ketones (Stick) Negative mg/dL (NEG) Urine Blood Large (NEG) Urine Nitrite Positive (NEG) Urine Bilirubin Negative (NEG) Urine Urobilinogen Dipstick 0.2 mg/dL (0.2 mg/dL) Urine Leukocyte Esterase Large (NEG) Urine RBC Field obscured /HPF (0-2) Urine WBC Tntc /HPF (0-4) Urine Bacteria Few /HPF (0-FEW) Test 06/24/21 22:35 06/25/21 03:45 06/25/21 08:40 Troponin I High Sensitivity 1084 ng/L (4-75) 808 ng/L (4-75) Activated Partial Thromboplast Time 54 SEC (24-38) White Blood Count 15.7 x10^3/uL (4.0-11.0) Red Blood Count 2.78 x10^6/uL (4.30-5.70) Hemoglobin 7.5 g/dL (13.0-17.5) Hematocrit 23.5 % (39.0-53.0) Mean Corpuscular Volume 84 fL (79-100) Mean Corpuscular Hemoglobin 27 pg (25-35) Mean Corpuscular Hemoglobin Concent 32 g/dL (31-37) Red Cell Distribution Width 17.5 % (11.5-14.5) Platelet Count 250 x10^3/uL (140-400) Heparin Anti-Xa Act, Unfractionated < 0.10 IU/mL (0.30-0.70) Sodium Level 138 mmol/L (136-145) Potassium Level 4.4 mmol/L (3.5-5.1) Chloride Level 103 mmol/L (98-107) Carbon Dioxide Level 25 mmol/L (21-32) Anion Gap 10 (6-14) Blood Urea Nitrogen 94 mg/dL (8-26) Creatinine 3.2 mg/dL (0.7-1.3) Estimated GFR (Cockcroft-Gault) 18.6 BUN/Creatinine Ratio 29 (6-20) Glucose Level 93 mg/dL (70-99) Calcium Level 8.4 mg/dL (8.5-10.1) Total Bilirubin 0.3 mg/dL (0.2-1.0) Aspartate Amino Transf (AST/SGOT) 35 U/L (15-37) Alanine Aminotransferase (ALT/SGPT) 45 U/L (16-63) Alkaline Phosphatase 154 U/L (46-116) Total Protein 5.3 g/dL (6.4-8.2) Albumin 1.8 g/dL (3.4-5.0) Albumin/Globulin Ratio 0.5 (1.0-1.7) Review All relevant outside records, renal labs, imaging studies, telemetry/EKG's were reviewed. Images Images CT scan abdomen pelvis: IMPRESSION: 1. Bilateral hydronephrosis and hydroureter without an obstructing stone or lesion identified. Findings could represent sequela of chronic bladder outlet obstruction. 2. Bladder is decompressed with a Campos balloon in the bladder. There is perivesicular fat stranding. Correlate with urinalysis for infection. 3. Diverticulosis without evidence of acute diverticulitis. KARLA SAGE MD Jun 25, 2021 13:11
--- NOTE | 2021-06-25 13:28 | PN ---
DATE: 06/25/2021 SUBJECTIVE: The patient is an 86-year-old male patient, a resident at [facility] in [place] who was admitted yesterday to the Emergency Room of [facility] as I found him there hypoxic, markedly tachypneic and has acute on chronic kidney injury. His serum creatinine when he was admitted to [facility] was 0.9 and his serum creatinine I saw him yesterday was 3 mg and therefore, he was initially sent to [facility] and for some reason they refused to accept him as he is not in their catchment area and ended up being sent in [facility] Emergency Room where extensive investigation showed that his kidney function has worsened further. His BUN is 97, creatinine 3.4, has marked leukocytosis with manual differential consistent with his chronic lymphatic leukemia. He has acute hypoxic respiratory failure and bilateral lower lobe infiltrates. PHYSICAL EXAMINATION: GENERAL: When I saw him this morning, he was resting slightly propped up, again continued to be somewhat tachypneic. He was pale, but not jaundiced or cyanosed, no lymphadenopathy, no thyromegaly, no jugular venous distention, but mild generalized anasarca. VITAL SIGNS: His heart rate was 89, blood pressure was 114/40, temperature was 97.8, respiratory rate was 24 and oxygen saturation was 94%. HEAD, EYES, EARS, NOSE AND THROAT: Normocephalic, atraumatic. NECK: Supple. HEART: Showed normal first and second heart sounds, no gallop or murmur. CHEST: Clear to auscultation, no crepitation or rhonchi anteriorly. ABDOMEN: Distended, soft with tenderness mostly in the suprapubic area. No guarding or rigidity. No organomegaly. All hernial orifices are intact. Bowel sounds normal. NEUROLOGIC: He is very confused; however, all his cranial nerves are intact. He moves extremities without difficulty, although he is mostly bedbound. He has an indwelling Campos catheter. His intake and output are incompletely recorded. LABORATORY DATA: Today's labs are still pending at the time of this dictation. ASSESSMENT: In summary, this is an 86-year-old male patient. 1. Acute hypoxic respiratory failure, for which he was put on BiPAP. 2. Acute on chronic kidney injury. 3. Chronic lymphatic leukemia. 4. Chronic normochromic, normocytic anemia. 5. History of pulseless electrical activity cardiac arrest, history of acute myocardial infarction, history of pneumothorax requiring chest tube placement. He has also dysphagia, essential hypertension, paroxysmal atrial fibrillation, gastroesophageal reflux disease and urinary retention. PLAN: I reconciled all his medications and I started him also on IV Zosyn for bilateral lower lobe infiltrates. Because of his tachypnea and markedly elevated beta natriuretic peptide, I was reluctant to start him on IV fluid. He has also elevated troponin, which could indicate non-ST segment elevation myocardial infarction. I did consult the pmo consultant as well as the international logistics coordinator. His code status has changed to do not resuscitate. I held his lisinopril as well as his oral cefdinir and glucosamine and chondroitin sulfate. IGNACIA/JEM DR: HAY/theo TID: [id number]
[2021-06-25 14:27] VITALS: BP 91/46
--- NOTE | 2021-06-25 14:41 | PDOC2 ---
CONSULT Date of Consult Date of Consult DATE: 06/25/21 TIME: 14:33 Reason for Consult Reason for Consult: Elevated troponin, recent cardiac arrest Referring Physician Referring Physician: Dr. Drummond Identification/Chief Complaint Chief Complaint Shortness of breath Source Source: Chart review, Patient History of Present Illness Reason for Visit: The patient is an 86-year-old male who was sent to the [place] emergency room from the senior living due to severely increasing shortness of breath. He was treated with BiPAP which did help his shortness of breath by report. He has an extensive medical history including recent hospitalization [place] for sepsis. Also during that time he reportedly had a cardiac arrest. He may have had a heart catheterization as well but do not have records yet. He has extensive medical history including atrial fibrillation, chronic kidney disease and leukemia as well as bladder cancer. His initial lab here showed a potassium of 4.4, creatinine of 3.2. His troponins have been elevated at 952, 1084 and 808. He is mildly improved overnight and has been seen by the renal service. He remains shortness of breath but apparently this has improved. At this time he denies chest pain. Past Medical History Cardiovascular: AFIB, CAD, CHF, HTN, Other (Possible recent cardiac arrest) Pulmonary: COPD GI: GERD Heme/Onc: Cancer Renal/: Chronic renal insuff Past Surgical History Past Surgical History: Other (Possible recent cardiac catheterization at [place].) Family History Family History: Heart Disease Social History ALCOHOL: none Lives: with Family Current Problem List Problem List Problems Medical Problems: (1) Leukocytosis Status: Acute (2) Respiratory failure Status: Acute (3) Urinary tract infection Status: Acute Current Medications Current Medications Current Medications Hydromorphone HCl (Dilaudid) 1 mg 1X ONCE IVP Last administered on 06/24/21at 23:40; Start 06/24/21 at 23:30; Stop 06/24/21 at 23:31; Status DC Sodium Chloride 1,000 ml @ 125 mls/hr 1X ONCE IV Last administered on 06/25/21at 00:15; Start 06/25/21 at 00:15; Stop 06/25/21 at 08:14; Status DC Fentanyl Citrate (Fentanyl 2ml Vial) 50 mcg PRN Q1HR PRN IVP PAIN; Start 06/25/21 at 00:15; Stop 06/26/21 at 00:14 Ceftriaxone Sodium (Rocephin) 1 gm 1X ONCE IVP Last administered on 06/25/21at 02:19; Start 06/25/21 at 01:45; Stop 06/25/21 at 01:46; Status DC Aspirin (Aspirin Chewable) 324 mg 1X ONCE PO Last administered on 06/25/21at 02:43; Start 06/25/21 at 01:45; Stop 06/25/21 at 02:36; Status DC Heparin Sodium/ Dextrose 250 ml @ 9.852 mls/ hr CONT PRN IV PER PROTOCOL Last administered on 06/25/21at 02:24; Start 06/25/21 at 01:45 Heparin Sodium (Porcine) (Heparin Sodium) 2,050 unit PRN Q6HRS PRN IV FOR UFH LEVEL LESS THAN 0.2; Start 06/25/21 at 01:45 Info (FLU VACCINE SCREEN per RX) 1 each 1X ONCE MC ; Start 06/25/21 at 03:15; Stop 06/25/21 at 03:16; Status UNV Pharmacy Consult (C.diff Med Screen By Rx) 1 each 1X ONCE [facility] ; Start 06/25/21 at 03:15; Stop 06/25/21 at 03:16; Status Cancel Influenza Virus Vaccine Quadrival (Flulaval Quad [id number] Syringe) 0.5 ml ONCE ONCE VAX IM ; Start 06/25/21 at 09:00; Stop 06/25/21 at 09:01; Status DC Lactobacillus Rhamnosus (Culturelle) 1 cap BID PO Last administered on 06/25/21at 09:08; Start 06/25/21 at 09:00 Acetaminophen (Tylenol) 1,000 mg PRN Q6HRS PRN PO MILD PAIN, TEMP; Start 06/25/21 at 09:00 Vitamin D (Vitamin D3) 1,000 unit DAILY PO Last administered on 06/25/21at 09:08; Start 06/25/21 at 09:00 Senna/Docusate Sodium (Senna Plus) 1 tab PRN BID PRN PO CONSTIPATION; Start 06/25/21 at 09:00 Tamsulosin HCl (Flomax) 0.4 mg DAILY PO Last administered on 06/25/21at 09:08; Start 06/25/21 at 09:00 Tramadol HCl (Ultram) 50 mg PRN BID PRN PO MODERATE PAIN Last administered on 06/25/21at 11:48; Start 06/25/21 at 09:00 Multivitamins (Thera M Plus) 1 tab DAILY PO Last administered on 06/25/21at 09:08; Start 06/25/21 at 09:00 Polyethylene Glycol (miraLAX PACKET) 17 gm PRN DAILY PRN PO CONSTIPATION, 1ST CHOICE; Start 06/25/21 at 09:00 Atorvastatin Calcium (Lipitor) 80 mg QHS PO ; Start 06/25/21 at 21:00 Tramadol HCl (Ultram) 100 mg PRN QHS PRN PO PAIN; Start 06/25/21 at 21:00 Piperacillin Sod/ Tazobactam Sod (Zosyn Per Pharmacy) 1 each PRN DAILY PRN [facility] SEE COMMENTS; Start 06/25/21 at 09:00 Piperacillin Sod/ Tazobactam Sod 2.25 gm/Sodium Chloride 50 ml @ 100 mls/hr Q8HRS IV Last administered on 06/25/21at 13:10; Start 06/25/21 at 09:00 Active Scripts Active Reported Tramadol Hcl 100 Mg Tbmp.24hr 100 Mg PO PRN QHS PRN Tramadol Hcl 50 Mg Tablet 50 Mg PO PRN BID PRN Sennosides-Docusate Sodium Tab (Sennosides/Docusate Sodium) 1 Each Tablet 1 Each PO PRN BID PRN Crestor (Rosuvastatin Calcium) 40 Mg Tablet 20 Mg PO HS Polyethylene Glycol 3350 2,500 Gm Powder 17 Gm PO PRN DAILY PRN 30 Days Multi Vitamin Daily (Multivitamin) 1 Each Tablet 1 Tab PO DAILY 30 Days Lisinopril 10 Mg Tablet 10 Mg PO DAILY Cidaflex Tablet (Glucosamine Hcl/Chondr Alicea A Na) 1 Each Tablet 1 Tab PO BID 30 Days Flomax (Tamsulosin Hcl) 0.4 Mg Cap.er.24h 0.4 Mg PO DAILY Vitamin D3 (Vitamin D) 25 Mcg Tablet 25 Mcg PO DAILY 1,000 UNITS = 25 MCG Cefdinir 300 Mg Capsule 300 Mg PO BID 7 Days Aspirin Ec (Aspirin) 81 Mg Tablet.dr 1 Tab PO DAILY Acetaminophen 500 Mg Tablet 2 Tab PO PRN Q6HRS PRN 15 Days Allergies Allergies: Coded Allergies: ibuprofen (Verified Allergy, Unknown, UNKNOWN, 06/25/21) TOLERATES ASA ROS General: YES: Fatigue Respiratory: YES: Shortness of breath, SOB with excertion Neurological: Yes Confusion Physical Exam General: mild distress HEENT: Atraumatic Lungs: Other (Mildly decreased breath sounds) Heart: Other (Irregularly irregular) Abdomen: Normal bowel sounds Vitals VITALS Vital Signs Date Time Temp Pulse Resp B/P (MAP) Pulse Ox O2 Delivery O2 Flow Rate FiO2 06/25/21 12:15 23 97 2.0 06/25/21 11:00 97.7 89 88/42 (57) BiPAP/CPAP 97.7 Labs Labs Laboratory Tests Test 06/24/21 17:15 06/24/21 17:17 06/24/21 18:12 06/24/21 18:31 White Blood Count 24.4 x10^3/uL (4.0-11.0) Red Blood Count 3.27 x10^6/uL (4.30-5.70) Hemoglobin 8.7 g/dL (13.0-17.5) Hematocrit 27.5 % (39.0-53.0) Mean Corpuscular Volume 84 fL (79-100) Mean Corpuscular Hemoglobin 27 pg (25-35) Mean Corpuscular Hemoglobin Concent 32 g/dL (31-37) Red Cell Distribution Width 17.3 % (11.5-14.5) Platelet Count 283 x10^3/uL (140-400) Neutrophils (%) (Auto) 40 % (31-73) Lymphocytes (%) (Auto) 59 % (24-48) Monocytes (%) (Auto) 1 % (0-9) Eosinophils (%) (Auto) 0 % (0-3) Basophils (%) (Auto) 0 % (0-3) Neutrophils # (Auto) 9.7 x10^3/uL (1.8-7.7) Lymphocytes # (Auto) 14.3 x10^3/uL (1.0-4.8) Monocytes # (Auto) 0.3 x10^3/uL (0.0-1.1) Eosinophils # (Auto) 0.0 x10^3/uL (0.0-0.7) Basophils # (Auto) 0.0 x10^3/uL (0.0-0.2) Segmented Neutrophils % 27 % (35-66) Band Neutrophils % 4 % (0-9) Lymphocytes % 68 % (24-48) Monocytes % 1 % (0-10) Smudge Cells Present Toxic Granulation Slight Dohle Bodies Few Platelet Estimate Adequate (ADEQUATE) Anisocytosis Slight Ovalocytes Mod Prothrombin Time 15.1 SEC (11.7-14.0) Prothromb Time International Ratio 1.2 (0.8-1.1) D-Dimer (Audrey) 3.66 ug/mlFEU (0.00-0.50) Sodium Level 133 mmol/L (136-145) Potassium Level 5.0 mmol/L (3.5-5.1) Chloride Level 99 mmol/L (98-107) Carbon Dioxide Level 27 mmol/L (21-32) Anion Gap 7 (6-14) Blood Urea Nitrogen 97 mg/dL (8-26) Creatinine 3.4 mg/dL (0.7-1.3) Estimated GFR (Cockcroft-Gault) 17.3 BUN/Creatinine Ratio 29 (6-20) Glucose Level 129 mg/dL (70-99) Lactic Acid Level 0.8 mmol/L (0.4-2.0) Calcium Level 8.6 mg/dL (8.5-10.1) Total Bilirubin 0.2 mg/dL (0.2-1.0) Aspartate Amino Transf (AST/SGOT) 50 U/L (15-37) Alanine Aminotransferase (ALT/SGPT) 56 U/L (16-63) Alkaline Phosphatase 181 U/L (46-116) Creatine Kinase 84 U/L (39-308) Creatine Kinase MB (Mass) 2.2 ng/mL (0.0-3.6) Creatine Kinase MB Relative Index 2.6 % (0-4) Troponin I High Sensitivity 952 ng/L (4-75) JF-Xip-E-Type Natriuretic Peptide 9325 pg/mL (0-449) Total Protein 6.0 g/dL (6.4-8.2) Albumin 2.0 g/dL (3.4-5.0) Albumin/Globulin Ratio 0.5 (1.0-1.7) O2 Saturation 99 % (92-99) Arterial Blood pH 7.42 (7.35-7.45) Arterial Blood pCO2 at Patient Temp 41 mmHg (35-46) Arterial Blood pO2 at Patient Temp 299 mmHg (65-108) Arterial Blood HCO3 26 mmol/L (21-28) Arterial Blood Base Excess 1 mmol/L (-3-3) Oxyhemoglobin 98.7 % Methemoglobin 0.4 % (0.0-1.9) Carbon Monoxide, Quantitative 0.3 % (0.0-1.9) FiO2 100 bipap Influenza Type A Antigen Negative (NEGATIVE) Influenza Type B Antigen Negative (NEGATIVE) SARS-CoV-2 RNA (YEIMI) Negative (Negative) SARS-CoV-2 Antigen (Rapid) Negative (NEGATIVE) Urine Collection Type Unknown Urine Color Yellow Urine Clarity Turbid Urine pH 6.0 (<5.0-8.0) Urine Specific Dugger 1.010 (1.000-1.030) Urine Protein 100 mg/dL (NEG-TRACE) Urine Glucose (UA) Negative mg/dL (NEG) Urine Ketones (Stick) Negative mg/dL (NEG) Urine Blood Large (NEG) Urine Nitrite Positive (NEG) Urine Bilirubin Negative (NEG) Urine Urobilinogen Dipstick 0.2 mg/dL (0.2 mg/dL) Urine Leukocyte Esterase Large (NEG) Urine RBC Field obscured /HPF (0-2) Urine WBC Tntc /HPF (0-4) Urine Bacteria Few /HPF (0-FEW) Test 06/24/21 22:35 06/25/21 03:45 06/25/21 08:40 Troponin I High Sensitivity 1084 ng/L (4-75) 808 ng/L (4-75) Activated Partial Thromboplast Time 54 SEC (24-38) White Blood Count 15.7 x10^3/uL (4.0-11.0) Red Blood Count 2.78 x10^6/uL (4.30-5.70) Hemoglobin 7.5 g/dL (13.0-17.5) Hematocrit 23.5 % (39.0-53.0) Mean Corpuscular Volume 84 fL (79-100) Mean Corpuscular Hemoglobin 27 pg (25-35) Mean Corpuscular Hemoglobin Concent 32 g/dL (31-37) Red Cell Distribution Width 17.5 % (11.5-14.5) Platelet Count 250 x10^3/uL (140-400) Heparin Anti-Xa Act, Unfractionated < 0.10 IU/mL (0.30-0.70) Sodium Level 138 mmol/L (136-145) Potassium Level 4.4 mmol/L (3.5-5.1) Chloride Level 103 mmol/L (98-107) Carbon Dioxide Level 25 mmol/L (21-32) Anion Gap 10 (6-14) Blood Urea Nitrogen 94 mg/dL (8-26) Creatinine 3.2 mg/dL (0.7-1.3) Estimated GFR (Cockcroft-Gault) 18.6 BUN/Creatinine Ratio 29 (6-20) Glucose Level 93 mg/dL (70-99) Calcium Level 8.4 mg/dL (8.5-10.1) Total Bilirubin 0.3 mg/dL (0.2-1.0) Aspartate Amino Transf (AST/SGOT) 35 U/L (15-37) Alanine Aminotransferase (ALT/SGPT) 45 U/L (16-63) Alkaline Phosphatase 154 U/L (46-116) Total Protein 5.3 g/dL (6.4-8.2) Albumin 1.8 g/dL (3.4-5.0) Albumin/Globulin Ratio 0.5 (1.0-1.7) Laboratory Tests Test 06/24/21 17:15 06/24/21 17:17 06/24/21 18:12 06/24/21 18:31 White Blood Count 24.4 x10^3/uL (4.0-11.0) Red Blood Count 3.27 x10^6/uL (4.30-5.70) Hemoglobin 8.7 g/dL (13.0-17.5) Hematocrit 27.5 % (39.0-53.0) Mean Corpuscular Volume 84 fL (79-100) Mean Corpuscular Hemoglobin 27 pg (25-35) Mean Corpuscular Hemoglobin Concent 32 g/dL (31-37) Red Cell Distribution Width 17.3 % (11.5-14.5) Platelet Count 283 x10^3/uL (140-400) Neutrophils (%) (Auto) 40 % (31-73) Lymphocytes (%) (Auto) 59 % (24-48) Monocytes (%) (Auto) 1 % (0-9) Eosinophils (%) (Auto) 0 % (0-3) Basophils (%) (Auto) 0 % (0-3) Neutrophils # (Auto) 9.7 x10^3/uL (1.8-7.7) Lymphocytes # (Auto) 14.3 x10^3/uL (1.0-4.8) Monocytes # (Auto) 0.3 x10^3/uL (0.0-1.1) Eosinophils # (Auto) 0.0 x10^3/uL (0.0-0.7) Basophils # (Auto) 0.0 x10^3/uL (0.0-0.2) Segmented Neutrophils % 27 % (35-66) Band Neutrophils % 4 % (0-9) Lymphocytes % 68 % (24-48) Monocytes % 1 % (0-10) Smudge Cells Present Toxic Granulation Slight Dohle Bodies Few Platelet Estimate Adequate (ADEQUATE) Anisocytosis Slight Ovalocytes Mod Prothrombin Time 15.1 SEC (11.7-14.0) Prothromb Time International Ratio 1.2 (0.8-1.1) D-Dimer (Audrey) 3.66 ug/mlFEU (0.00-0.50) Sodium Level 133 mmol/L (136-145) Potassium Level 5.0 mmol/L (3.5-5.1) Chloride Level 99 mmol/L (98-107) Carbon Dioxide Level 27 mmol/L (21-32) Anion Gap 7 (6-14) Blood Urea Nitrogen 97 mg/dL (8-26) Creatinine 3.4 mg/dL (0.7-1.3) Estimated GFR (Cockcroft-Gault) 17.3 BUN/Creatinine Ratio 29 (6-20) Glucose Level 129 mg/dL (70-99) Lactic Acid Level 0.8 mmol/L (0.4-2.0) Calcium Level 8.6 mg/dL (8.5-10.1) Total Bilirubin 0.2 mg/dL (0.2-1.0) Aspartate Amino Transf (AST/SGOT) 50 U/L (15-37) Alanine Aminotransferase (ALT/SGPT) 56 U/L (16-63) Alkaline Phosphatase 181 U/L (46-116) Creatine Kinase 84 U/L (39-308) Creatine Kinase MB (Mass) 2.2 ng/mL (0.0-3.6) Creatine Kinase MB Relative Index 2.6 % (0-4) Troponin I High Sensitivity 952 ng/L (4-75) YH-Kxc-A-Type Natriuretic Peptide 9325 pg/mL (0-449) Total Protein 6.0 g/dL (6.4-8.2) Albumin 2.0 g/dL (3.4-5.0) Albumin/Globulin Ratio 0.5 (1.0-1.7) O2 Saturation 99 % (92-99) Arterial Blood pH 7.42 (7.35-7.45) Arterial Blood pCO2 at Patient Temp 41 mmHg (35-46) Arterial Blood pO2 at Patient Temp 299 mmHg (65-108) Arterial Blood HCO3 26 mmol/L (21-28) Arterial Blood Base Excess 1 mmol/L (-3-3) Oxyhemoglobin 98.7 % Methemoglobin 0.4 % (0.0-1.9) Carbon Monoxide, Quantitative 0.3 % (0.0-1.9) FiO2 100 bipap Influenza Type A Antigen Negative (NEGATIVE) Influenza Type B Antigen Negative (NEGATIVE) SARS-CoV-2 RNA (YEIMI) Negative (Negative) SARS-CoV-2 Antigen (Rapid) Negative (NEGATIVE) Urine Collection Type Unknown Urine Color Yellow Urine Clarity Turbid Urine pH 6.0 (<5.0-8.0) Urine Specific Dugger 1.010 (1.000-1.030) Urine Protein 100 mg/dL (NEG-TRACE) Urine Glucose (UA) Negative mg/dL (NEG) Urine Ketones (Stick) Negative mg/dL (NEG) Urine Blood Large (NEG) Urine Nitrite Positive (NEG) Urine Bilirubin Negative (NEG) Urine Urobilinogen Dipstick 0.2 mg/dL (0.2 mg/dL) Urine Leukocyte Esterase Large (NEG) Urine RBC Field obscured /HPF (0-2) Urine WBC Tntc /HPF (0-4) Urine Bacteria Few /HPF (0-FEW) Test 06/24/21 22:35 06/25/21 03:45 06/25/21 08:40 Troponin I High Sensitivity 1084 ng/L (4-75) 808 ng/L (4-75) Activated Partial Thromboplast Time 54 SEC (24-38) White Blood Count 15.7 x10^3/uL (4.0-11.0) Red Blood Count 2.78 x10^6/uL (4.30-5.70) Hemoglobin 7.5 g/dL (13.0-17.5) Hematocrit 23.5 % (39.0-53.0) Mean Corpuscular Volume 84 fL (79-100) Mean Corpuscular Hemoglobin 27 pg (25-35) Mean Corpuscular Hemoglobin Concent 32 g/dL (31-37) Red Cell Distribution Width 17.5 % (11.5-14.5) Platelet Count 250 x10^3/uL (140-400) Heparin Anti-Xa Act, Unfractionated < 0.10 IU/mL (0.30-0.70) Sodium Level 138 mmol/L (136-145) Potassium Level 4.4 mmol/L (3.5-5.1) Chloride Level 103 mmol/L (98-107) Carbon Dioxide Level 25 mmol/L (21-32) Anion Gap 10 (6-14) Blood Urea Nitrogen 94 mg/dL (8-26) Creatinine 3.2 mg/dL (0.7-1.3) Estimated GFR (Cockcroft-Gault) 18.6 BUN/Creatinine Ratio 29 (6-20) Glucose Level 93 mg/dL (70-99) Calcium Level 8.4 mg/dL (8.5-10.1) Total Bilirubin 0.3 mg/dL (0.2-1.0) Aspartate Amino Transf (AST/SGOT) 35 U/L (15-37) Alanine Aminotransferase (ALT/SGPT) 45 U/L (16-63) Alkaline Phosphatase 154 U/L (46-116) Total Protein 5.3 g/dL (6.4-8.2) Albumin 1.8 g/dL (3.4-5.0) Albumin/Globulin Ratio 0.5 (1.0-1.7) Images Images Chest x-ray shows patchy bilateral airspace disease. Lower extremity venous ultrasound is negative for DVT. Renal ultrasound shows mild to moderate bilateral hydronephrosis. Assessment/Plan Assessment/Plan 1. Acute kidney injury. Lab as above. Ultrasound shows bilateral hydronephrosis. Patient has a history of bladder cancer. He is being evaluated by the renal service. 2. Elevated troponins as noted above. Possible non-ST elevated myocardial infarction. Reportedly recent cardiac arrest in [place]. We are uncertain if he received cardiac catheterization at that time but will obtain records. The patient is now a DNR. 3. Sepsis. Continue antibiotics and supportive treatment. 4. Atrial fibrillation. We will continue to monitor rhythm. HIRA BEST MD Jun 25, 2021 14:41
[2021-06-25] MEDS: HEPARIN for IV BOLUS 10,000 UNIT/10 ML VIAL. IV PRN (17:08)
[2021-06-25 19:21] VITALS: BP 111/53
[2021-06-25] MEDS ORDERED: traMADol 50 MG TABLET PO PRN (21:00)
[2021-06-25] MEDS: ATORVASTATIN CALCIUM 40 MG TABLET. PO SCH (21:06)
[2021-06-25 23:00] VITALS: BP 108/54
[2021-06-26] MEDS: HEPARIN for IV BOLUS 10,000 UNIT/10 ML VIAL. IV PRN (02:00)
[2021-06-26 02:48] VITALS: BP 105/50
[2021-06-26 06:08] VITALS: BP 92/42
[2021-06-26] MEDS: PIPERACILLIN/TAZOBACTAM 2.25 GM in IV NORMAL SALINE 50ML 50 ML IV SCH ×2 (06:11→13:33)
[2021-06-26] MEDS: CHOLECALCIFEROL (VITAMIN D3) 1,000 UNIT TABLET PO SCH (08:37)
[2021-06-26] MEDS: LACTOBACILLUS RHAMNOSUS GG 1 CAPSULE. PO SCH ×2 (08:37→20:09)
[2021-06-26] MEDS: MULTIVITAMIN with MINERAL TABLET. PO SCH (08:37)
[2021-06-26] MEDS: TAMSULOSIN 0.4 MG CAP.ER.24H. PO SCH (08:37)
[2021-06-26 09:00] LABS: CALCIUM 8.3 mg/dL (8.5-10.1); POTASSIUM 4.2 mmol/L (3.5-5.1)
[2021-06-26 09:00] LABS: HEMATOCRIT 23.6 % (39.0-53.0); HEMOGLOBIN 7.4 g/dL (13.0-17.5); RED BLOOD COUNT 2.79 x10^6/uL (4.30-5.70); WHITE BLOOD COUNT 12.8 x10^3/uL (4.0-11.0)
[2021-06-26 09:05] LABS: ALBUMIN 1.7 g/dL (3.4-5.0); ALBUMIN/GLOBULIN RATIO 0.5 (1.0-1.7); TOTAL BILIRUBIN 0.2 mg/dL (0.2-1.0); TOTAL PROTEIN 5.2 g/dL (6.4-8.2)
[2021-06-26 11:00] VITALS: BP 127/45
[2021-06-26] MEDS: traMADol 50 MG TABLET PO PRN (12:08)
--- NOTE | 2021-06-26 14:01 | PDOC ---
PROGRESS NOTES Date of Service DATE: 06/26/21 TIME: 13:59 Subjective Subjective Patient seen and examined Objective Objective Vital Signs Date Time Temp Pulse Resp B/P (MAP) Pulse Ox O2 Delivery O2 Flow Rate FiO2 06/26/21 12:08 97 Nasal Cannula 3.0 06/26/21 11:00 98.3 67 18 127/45 (72) 98.3 Intake and Output 06/26/21 07:00 Intake Total 800 ml Output Total 2775 ml Balance -1975 ml Intake Oral 800 ml Output Urine Total 2775 ml Physical Exam Abdomen: Normal bowel sounds Heart: Other (Irregular rhythm) General: mild distress Lungs: Other (Mildly decreased breath sounds) Assessment Assessment Problems Medical Problems: (1) Leukocytosis Status: Acute (2) Respiratory failure Status: Acute (3) Urinary tract infection Status: Acute 1. Acute kidney injury. Morning lab shows a potassium of 4.2 and a creatinine of 3.0. Ultrasound shows bilateral hydronephrosis. Patient has a history of bladder cancer. He is being evaluated by the renal service. 2. Elevated troponins as noted above. Possible non-ST elevated myocardial infarction. Reportedly recent cardiac arrest in [place]. We are uncertain if he received cardiac catheterization at that time but are attempting to find old records. The patient is significantly more alert today and is feeling better. We will discontinue heparin secondary to his hemoglobin hematocrit of 7.4 and 23.6. We will continue to monitor. 3. Sepsis. Continue antibiotics and supportive treatment. 4. Atrial fibrillation. We will continue to monitor rhythm. Rate is under better control. Comment Review of Relevant I have reviewed the following items [place] (where applicable) has been applied. Labs Laboratory Tests Test 06/24/21 17:15 06/24/21 17:17 06/24/21 18:12 06/24/21 18:31 White Blood Count 24.4 x10^3/uL (4.0-11.0) Red Blood Count 3.27 x10^6/uL (4.30-5.70) Hemoglobin 8.7 g/dL (13.0-17.5) Hematocrit 27.5 % (39.0-53.0) Mean Corpuscular Volume 84 fL (79-100) Mean Corpuscular Hemoglobin 27 pg (25-35) Mean Corpuscular Hemoglobin Concent 32 g/dL (31-37) Red Cell Distribution Width 17.3 % (11.5-14.5) Platelet Count 283 x10^3/uL (140-400) Neutrophils (%) (Auto) 40 % (31-73) Lymphocytes (%) (Auto) 59 % (24-48) Monocytes (%) (Auto) 1 % (0-9) Eosinophils (%) (Auto) 0 % (0-3) Basophils (%) (Auto) 0 % (0-3) Neutrophils # (Auto) 9.7 x10^3/uL (1.8-7.7) Lymphocytes # (Auto) 14.3 x10^3/uL (1.0-4.8) Monocytes # (Auto) 0.3 x10^3/uL (0.0-1.1) Eosinophils # (Auto) 0.0 x10^3/uL (0.0-0.7) Basophils # (Auto) 0.0 x10^3/uL (0.0-0.2) Segmented Neutrophils % 27 % (35-66) Band Neutrophils % 4 % (0-9) Lymphocytes % 68 % (24-48) Monocytes % 1 % (0-10) Smudge Cells Present Toxic Granulation Slight Dohle Bodies Few Platelet Estimate Adequate (ADEQUATE) Anisocytosis Slight Ovalocytes Mod Prothrombin Time 15.1 SEC (11.7-14.0) Prothromb Time International Ratio 1.2 (0.8-1.1) D-Dimer (Audrey) 3.66 ug/mlFEU (0.00-0.50) Sodium Level 133 mmol/L (136-145) Potassium Level 5.0 mmol/L (3.5-5.1) Chloride Level 99 mmol/L (98-107) Carbon Dioxide Level 27 mmol/L (21-32) Anion Gap 7 (6-14) Blood Urea Nitrogen 97 mg/dL (8-26) Creatinine 3.4 mg/dL (0.7-1.3) Estimated GFR (Cockcroft-Gault) 17.3 BUN/Creatinine Ratio 29 (6-20) Glucose Level 129 mg/dL (70-99) Lactic Acid Level 0.8 mmol/L (0.4-2.0) Calcium Level 8.6 mg/dL (8.5-10.1) Total Bilirubin 0.2 mg/dL (0.2-1.0) Aspartate Amino Transf (AST/SGOT) 50 U/L (15-37) Alanine Aminotransferase (ALT/SGPT) 56 U/L (16-63) Alkaline Phosphatase 181 U/L (46-116) Creatine Kinase 84 U/L (39-308) Creatine Kinase MB (Mass) 2.2 ng/mL (0.0-3.6) Creatine Kinase MB Relative Index 2.6 % (0-4) Troponin I High Sensitivity 952 ng/L (4-75) OE-Bdk-M-Type Natriuretic Peptide 9325 pg/mL (0-449) Total Protein 6.0 g/dL (6.4-8.2) Albumin 2.0 g/dL (3.4-5.0) Albumin/Globulin Ratio 0.5 (1.0-1.7) O2 Saturation 99 % (92-99) Arterial Blood pH 7.42 (7.35-7.45) Arterial Blood pCO2 at Patient Temp 41 mmHg (35-46) Arterial Blood pO2 at Patient Temp 299 mmHg (65-108) Arterial Blood HCO3 26 mmol/L (21-28) Arterial Blood Base Excess 1 mmol/L (-3-3) Oxyhemoglobin 98.7 % Methemoglobin 0.4 % (0.0-1.9) Carbon Monoxide, Quantitative 0.3 % (0.0-1.9) FiO2 100 bipap Influenza Type A Antigen Negative (NEGATIVE) Influenza Type B Antigen Negative (NEGATIVE) SARS-CoV-2 RNA (YEIMI) Negative (Negative) SARS-CoV-2 Antigen (Rapid) Negative (NEGATIVE) Urine Collection Type Unknown Urine Color Yellow Urine Clarity Turbid Urine pH 6.0 (<5.0-8.0) Urine Specific [place] 1.010 (1.000-1.030) Urine Protein 100 mg/dL (NEG-TRACE) Urine Glucose (UA) Negative mg/dL (NEG) Urine Ketones (Stick) Negative mg/dL (NEG) Urine Blood Large (NEG) Urine Nitrite Positive (NEG) Urine Bilirubin Negative (NEG) Urine Urobilinogen Dipstick 0.2 mg/dL (0.2 mg/dL) Urine Leukocyte Esterase Large (NEG) Urine RBC Field obscured /HPF (0-2) Urine WBC Tntc /HPF (0-4) Urine Bacteria Few /HPF (0-FEW) Test 06/24/21 22:35 06/25/21 03:45 06/25/21 08:40 06/25/21 14:45 Troponin I High Sensitivity 1084 ng/L (4-75) 808 ng/L (4-75) Activated Partial Thromboplast Time 54 SEC (24-38) White Blood Count 15.7 x10^3/uL (4.0-11.0) Red Blood Count 2.78 x10^6/uL (4.30-5.70) Hemoglobin 7.5 g/dL (13.0-17.5) Hematocrit 23.5 % (39.0-53.0) Mean Corpuscular Volume 84 fL (79-100) Mean Corpuscular Hemoglobin 27 pg (25-35) Mean Corpuscular Hemoglobin Concent 32 g/dL (31-37) Red Cell Distribution Width 17.5 % (11.5-14.5) Platelet Count 250 x10^3/uL (140-400) Heparin Anti-Xa Act, Unfractionated < 0.10 IU/mL (0.30-0.70) < 0.10 IU/mL (0.30-0.70) Sodium Level 138 mmol/L (136-145) Potassium Level 4.4 mmol/L (3.5-5.1) Chloride Level 103 mmol/L (98-107) Carbon Dioxide Level 25 mmol/L (21-32) Anion Gap 10 (6-14) Blood Urea Nitrogen 94 mg/dL (8-26) Creatinine 3.2 mg/dL (0.7-1.3) Estimated GFR (Cockcroft-Gault) 18.6 BUN/Creatinine Ratio 29 (6-20) Glucose Level 93 mg/dL (70-99) Calcium Level 8.4 mg/dL (8.5-10.1) Total Bilirubin 0.3 mg/dL (0.2-1.0) Aspartate Amino Transf (AST/SGOT) 35 U/L (15-37) Alanine Aminotransferase (ALT/SGPT) 45 U/L (16-63) Alkaline Phosphatase 154 U/L (46-116) Total Protein 5.3 g/dL (6.4-8.2) Albumin 1.8 g/dL (3.4-5.0) Albumin/Globulin Ratio 0.5 (1.0-1.7) Test 06/25/21 23:00 06/26/21 00:02 06/26/21 08:35 06/26/21 08:45 Heparin Anti-Xa Act, Unfractionated < 0.10 IU/mL (0.30-0.70) 0.35 IU/mL (0.30-0.70) Activated Partial Thromboplast Time 100 SEC (24-38) White Blood Count 12.8 x10^3/uL (4.0-11.0) Red Blood Count 2.79 x10^6/uL (4.30-5.70) Hemoglobin 7.4 g/dL (13.0-17.5) Hematocrit 23.6 % (39.0-53.0) Mean Corpuscular Volume 85 fL (79-100) Mean Corpuscular Hemoglobin 27 pg (25-35) Mean Corpuscular Hemoglobin Concent 32 g/dL (31-37) Red Cell Distribution Width 18.0 % (11.5-14.5) Platelet Count 245 x10^3/uL (140-400) Sodium Level 139 mmol/L (136-145) Potassium Level 4.2 mmol/L (3.5-5.1) Chloride Level 105 mmol/L (98-107) Carbon Dioxide Level 27 mmol/L (21-32) Anion Gap 7 (6-14) Blood Urea Nitrogen 82 mg/dL (8-26) Creatinine 3.0 mg/dL (0.7-1.3) Estimated GFR (Cockcroft-Gault) 20.0 BUN/Creatinine Ratio 27 (6-20) Glucose Level 103 mg/dL (70-99) Calcium Level 8.3 mg/dL (8.5-10.1) Total Bilirubin 0.2 mg/dL (0.2-1.0) Aspartate Amino Transf (AST/SGOT) 28 U/L (15-37) Alanine Aminotransferase (ALT/SGPT) 42 U/L (16-63) Alkaline Phosphatase 137 U/L (46-116) Total Protein 5.2 g/dL (6.4-8.2) Albumin 1.7 g/dL (3.4-5.0) Albumin/Globulin Ratio 0.5 (1.0-1.7) Laboratory Tests Test 06/25/21 14:45 06/25/21 23:00 06/26/21 00:02 06/26/21 08:35 Heparin Anti-Xa Act, Unfractionated < 0.10 IU/mL (0.30-0.70) < 0.10 IU/mL (0.30-0.70) Activated Partial Thromboplast Time 100 SEC (24-38) White Blood Count 12.8 x10^3/uL (4.0-11.0) Red Blood Count 2.79 x10^6/uL (4.30-5.70) Hemoglobin 7.4 g/dL (13.0-17.5) Hematocrit 23.6 % (39.0-53.0) Mean Corpuscular Volume 85 fL (79-100) Mean Corpuscular Hemoglobin 27 pg (25-35) Mean Corpuscular Hemoglobin Concent 32 g/dL (31-37) Red Cell Distribution Width 18.0 % (11.5-14.5) Platelet Count 245 x10^3/uL (140-400) Test 06/26/21 08:45 Heparin Anti-Xa Act, Unfractionated 0.35 IU/mL (0.30-0.70) Sodium Level 139 mmol/L (136-145) Potassium Level 4.2 mmol/L (3.5-5.1) Chloride Level 105 mmol/L (98-107) Carbon Dioxide Level 27 mmol/L (21-32) Anion Gap 7 (6-14) Blood Urea Nitrogen 82 mg/dL (8-26) Creatinine 3.0 mg/dL (0.7-1.3) Estimated GFR (Cockcroft-Gault) 20.0 BUN/Creatinine Ratio 27 (6-20) Glucose Level 103 mg/dL (70-99) Calcium Level 8.3 mg/dL (8.5-10.1) Total Bilirubin 0.2 mg/dL (0.2-1.0) Aspartate Amino Transf (AST/SGOT) 28 U/L (15-37) Alanine Aminotransferase (ALT/SGPT) 42 U/L (16-63) Alkaline Phosphatase 137 U/L (46-116) Total Protein 5.2 g/dL (6.4-8.2) Albumin 1.7 g/dL (3.4-5.0) Albumin/Globulin Ratio 0.5 (1.0-1.7) Microbiology 06/24/21 Urine Culture - Preliminary, Resulted 06/24/21 Blood Culture - Final, Complete Medications Current Medications Hydromorphone HCl (Dilaudid) 1 mg 1X ONCE IVP Last administered on 06/24/21at 23:40; Start 06/24/21 at 23:30; Stop 06/24/21 at 23:31; Status DC Sodium Chloride 1,000 ml @ 125 mls/hr 1X ONCE IV Last administered on 1at 00:15; Start 06/25/21 at 00:15; Stop 06/25/21 at 08:14; Status DC Fentanyl Citrate (Fentanyl 2ml Vial) 50 mcg PRN Q1HR PRN IVP PAIN; Start 06/25/21 at 00:15; Stop 06/26/21 at 00:14; Status DC Ceftriaxone Sodium (Rocephin) 1 gm 1X ONCE IVP Last administered on 06/25/21at 02:19; Start 06/25/21 at 01:45; Stop 06/25/21 at 01:46; Status DC Aspirin (Aspirin Chewable) 324 mg 1X ONCE PO Last administered on 06/25/21at 02:43; Start 06/25/21 at 01:45; Stop 06/25/21 at 02:36; Status DC Heparin Sodium/ Dextrose 250 ml @ 9.852 mls/ hr CONT PRN IV PER PROTOCOL Last administered on 06/25/21at 22:23; Start 06/25/21 at 01:45; Stop 06/26/21 at 12:46; Status DC Heparin Sodium (Porcine) (Heparin Sodium) 2,050 unit PRN Q6HRS PRN IV FOR UFH LEVEL LESS THAN 0.2 Last administered on 06/26/21at 02:00; Start 06/25/21 at 01:45; Stop 06/26/21 at 12:47; Status DC Info (FLU VACCINE SCREEN per RX) 1 each 1X ONCE MC ; Start 06/25/21 at 03:15; Stop 06/25/21 at 03:16; Status UNV Pharmacy Consult (C.diff Med Screen By Rx) 1 each 1X ONCE MC ; Start 06/25/21 at 03:15; Stop 06/25/21 at 03:16; Status Cancel Influenza Virus Vaccine Quadrival (Flulaval Quad Syringe) 0.5 ml ONCE ONCE VAX IM ; Start 06/25/21 at 09:00; Stop 06/25/21 at 09:01; Status DC Lactobacillus Rhamnosus (Culturelle) 1 cap BID PO Last administered on 06/26/21at 08:37; Start 06/25/21 at 09:00 Acetaminophen (Tylenol) 1,000 mg PRN Q6HRS PRN PO MILD PAIN, TEMP; Start 06/25/21 at 09:00 Vitamin D (Vitamin D3) 1,000 unit DAILY PO Last administered on 06/26/21at 08:37; Start 06/25/21 at 09:00 Senna/Docusate Sodium (Senna Plus) 1 tab PRN BID PRN PO CONSTIPATION; Start 06/25/21 at 09:00 Tamsulosin HCl (Flomax) 0.4 mg DAILY PO Last administered on 06/26/21at 08:37; Start 06/25/21 at 09:00 Tramadol HCl (Ultram) 50 mg PRN BID PRN PO MODERATE PAIN Last administered on 06/26/21at 12:08; Start 06/25/21 at 09:00; Stop 06/26/21 at 12:19; Status DC Multivitamins (Thera M Plus) 1 tab DAILY PO Last administered on 06/26/21at 08:37; Start 06/25/21 at 09:00 Polyethylene Glycol (miraLAX PACKET) 17 gm PRN DAILY PRN PO CONSTIPATION, 1ST CHOICE; Start 06/25/21 at 09:00 Atorvastatin Calcium (Lipitor) 80 mg QHS PO Last administered on 06/25/21at 21:06; Start 06/25/21 at 21:00 Tramadol HCl (Ultram) 100 mg PRN QHS PRN PO PAIN; Start 06/25/21 at 21:00; Stop 06/26/21 at 12:19; Status DC Piperacillin Sod/ Tazobactam Sod (Zosyn Per Pharmacy) 1 each PRN DAILY PRN MC SEE COMMENTS; Start 06/25/21 at 09:00 Piperacillin Sod/ Tazobactam Sod 2.25 gm/Sodium Chloride 50 ml @ 100 mls/hr Q8HRS IV Last administered on 06/26/21at 13:33; Start 06/25/21 at 09:00 Tramadol HCl (Ultram) 100 mg HS PO ; Start 06/26/21 at 21:00 Tramadol HCl (Ultram) 50 mg BID92 PO ; Start 06/27/21 at 09:00 Enoxaparin Sodium (Lovenox Per Pharmacy Prophylaxis Dosing) 1 each PRN DAILY PRN MC SEE COMMENTS; Start 06/26/21 at 12:45 Enoxaparin Sodium (Lovenox 30mg Syringe) 30 mg Q24H SQ ; Start 06/27/21 at 09:00 Active Scripts Active Reported Tramadol Hcl 100 Mg Tbmp.24hr 100 Mg PO PRN QHS PRN Tramadol Hcl 50 Mg Tablet 50 Mg PO PRN BID PRN Sennosides-Docusate Sodium Tab (Sennosides/Docusate Sodium) 1 Each Tablet 1 Each PO PRN BID PRN Crestor (Rosuvastatin Calcium) 40 Mg Tablet 20 Mg PO HS Polyethylene Glycol 3350 2,500 Gm Powder 17 Gm PO PRN DAILY PRN 30 Days Multi Vitamin Daily (Multivitamin) 1 Each Tablet 1 Tab PO DAILY 30 Days Lisinopril 10 Mg Tablet 10 Mg PO DAILY Cidaflex Tablet (Glucosamine Hcl/Chondr [place] A Na) 1 Each Tablet 1 Tab PO BID 30 Days Flomax (Tamsulosin Hcl) 0.4 Mg Cap.er.24h 0.4 Mg PO DAILY Vitamin D3 (Vitamin D) 25 Mcg Tablet 25 Mcg PO DAILY 1,000 UNITS = 25 MCG Cefdinir 300 Mg Capsule 300 Mg PO BID 7 Days Aspirin Ec (Aspirin) 81 Mg Tablet. 1 Tab PO DAILY Acetaminophen 500 Mg Tablet 2 Tab PO PRN Q6HRS PRN 15 Days Vitals/I & O Vital Sign - Last 24 Hours 06/25/21 06/25/21 06/25/21 06/25/21 14:27 19:21 20:00 21:07 Temp 98.0 98.7 98.0 98.7 Pulse 89 74 Resp 18 16 B/P (MAP) 91/46 (61) 111/53 (72) Pulse Ox 97 97 O2 Delivery Nasal Cannula Nasal Cannula Nasal Cannula O2 Flow Rate 2.0 2.0 2.0 2.0 06/25/21 06/25/21 06/26/21 06/26/21 21:37 23:00 02:48 06:08 Temp 98.6 97.8 97.5 98.6 97.8 97.5 Pulse 73 68 65 Resp 18 18 20 20 B/P (MAP) 108/54 (72) 105/50 (68) 92/42 (59) Pulse Ox 97 99 98 97 O2 Delivery Nasal Cannula Nasal Cannula Nasal Cannula Nasal Cannula O2 Flow Rate 2.0 2.0 3.0 3.0 06/26/21 06/26/21 06/26/21 06/26/21 08:00 08:00 11:00 12:08 Temp 98.3 98.3 Pulse 67 Resp 18 B/P (MAP) 127/45 (72) Pulse Ox 99 97 O2 Delivery Nasal Cannula Nasal Cannula Nasal Cannula O2 Flow Rate 3.0 3.0 3.0 3.0 Intake and Output 06/25/21 06/25/21 06/26/21 15:00 23:00 07:00 Intake Total 350 ml 400 ml 50 ml Output Total 1500 ml 1275 ml Balance 350 ml -1100 ml -1225 ml Justifications for Admission Other Justification HIRA BEST MD Jun 26, 2021 14:01
[2021-06-26 15:00] VITALS: BP 142/56
[2021-06-26] MEDS: PIPERACILLIN/TAZOBACTAM 3.375 GM in IV NORMAL SALINE 50ML 50 ML IV SCH (17:27)
--- NOTE | 2021-06-26 17:44 | PN ---
DATE: 06/26/2021 SUBJECTIVE: The patient is resting, slightly propped up in bed, somewhat tachypneic, but much better than yesterday. He is maintaining his oxygen saturation at 97% on 3 liters of oxygen. On questioning him, he denied any chest pain or shortness of breath. He did complain of back pain. PHYSICAL EXAMINATION: GENERAL: When I examined him, he was pale, but not jaundiced or cyanosed. No lymphadenopathy. No thyromegaly. No jugular venous distention. No limb edema. VITAL SIGNS: His heart rate was 65, blood pressure was 92/42, temperature was 97.5, respiratory rate 20, and oxygen saturation was 97% on 3 liters of oxygen. HEAD, EYES, EARS, NOSE AND THROAT: Normocephalic, atraumatic. NECK: Supple. HEART: Normal first and second heart sounds. No gallop, rub or murmur. CHEST: Showed central trachea, equal bilateral expansion, air entry, vesicular breath sounds. I could not really appreciate any crepitation or rhonchi. ABDOMEN: Distended, soft, nontender. NEUROLOGIC: He is awake, alert, somewhat confused. All his cranial nerves are intact. He moves upper extremities to much good extent. Lower extremities, he is mostly bedbound. He has an indwelling Campos catheter with blood-tinged urine. LABORATORY DATA: As of yesterday, his white cell count is down to 15,700, hemoglobin 7.5, hematocrit 23.5, MCV 84, platelet count 250,000. He continues to be on heparin drip. His chemistry as of yesterday showed a serum sodium 138, potassium 4.4, chloride 103, bicarbonate 25, anion gap of 10, BUN 94, creatinine was 3.2. Estimated GFR was 18 mL per minute. His glucose was 93, calcium was 8.4. Total bilirubin, AST, ALT were normal. Alkaline phosphatase slightly elevated. His troponin I high sensitivity was ____. Total protein was 5.3, albumin was 1.8. His blood culture has grown gram-negative rods in 1/4 bottles. The identification and sensitivities still pending at the time of this dictation. ASSESSMENT: 1. Acute hypoxic respiratory failure, improving. He is maintaining his oxygen saturation of 97% on 3 liters of oxygen. 2. Acute on chronic kidney injury. His creatinine went up to 3.4, yesterday it was 3.2. Today's labs are still pending at the time of this dictation. 3. Anemia that is normochromic, normocytic with component of blood loss and perhaps dilutional. His hemoglobin and hematocrit came down from 8.7 and 27.5, down to 7.5 and 23.5. Today's labs are still pending at the time of this dictation. He has blood-tinged urine. 4. He has chronic lymphatic leukemia. 5. The patient has bladder cancer with bilateral hydronephrosis. 6. He has a pulseless electrical activity cardiac arrest. 7. Pneumothorax that required chest tube placement and removal. 8. Paroxysmal atrial fibrillation, rate controlled. 9. Urinary retention, for which he has indwelling Campos catheter ____ placed. 10. The patient has bilateral lower lobe infiltrate. His blood culture has grown gram-negative rods in 1/4 bottles. PLAN: My plan is to continue with IV antibiotic in the form of Zosyn and await the result of the culture and sensitivity. Continue with pain management. Continue with all his other medication. Continue to monitor his H and H and transfuse him as needed. I will discuss his presentation with his urologist tomorrow and decide further management accordingly. Given his age and multiple medical problems, I think he is a candidate for hospice care. HAY/HIRAL/ARASH DR: Jaswant TID: [id number]
[2021-06-26] MEDS ORDERED: PIPERACILLIN/TAZOBACTAM 2.25 GM in IV NORMAL SALINE 50ML 50 ML IV SCH (18:00)
[2021-06-26 19:23] VITALS: BP 130/49
[2021-06-26] MEDS: ATORVASTATIN CALCIUM 40 MG TABLET. PO SCH (20:09)
[2021-06-26] MEDS: traMADol 50 MG TABLET PO SCH (20:10)
[2021-06-26 22:05] VITALS: BP 131/55
[2021-06-27] MEDS: PIPERACILLIN/TAZOBACTAM 3.375 GM in IV NORMAL SALINE 50ML 50 ML IV SCH ×4 (00:06→17:47)
[2021-06-27 03:00] VITALS: BP 129/57
[2021-06-27 04:34] LABS: BASO % 0 % (0-3); EOS # 0.3 x10^3/uL (0.0-0.7); EOS % 2 % (0-3); HEMATOCRIT 24.5 % (39.0-53.0); HEMOGLOBIN 7.5 g/dL (13.0-17.5); LYMPH # 9.8 x10^3/uL (1.0-4.8); LYMPH % 66 % (24-48); MEAN CORPUSCULAR HEMOGLOBIN 26 pg (25-35); MEAN CORPUSCULAR HGB CONC 31 g/dL (31-37); MEAN CORPUSCULAR VOLUME 86 fL (79-100); MONO # 0.2 x10^3/uL (0.0-1.1); MONO % 1 % (0-9); NEUT # 4.5 x10^3/uL (1.8-7.7); NEUT % 30 % (31-73); PLATELET COUNT 279 x10^3/uL (140-400); RED BLOOD COUNT 2.86 x10^6/uL (4.30-5.70); RED CELL DISTRIBUTION WIDTH 17.5 % (11.5-14.5); WHITE BLOOD COUNT 14.8 x10^3/uL (4.0-11.0)
[2021-06-27 04:53] LABS: CALCIUM 8.8 mg/dL (8.5-10.1); CREATININE 2.4 mg/dL (0.7-1.3); GFR 25.9; POTASSIUM 4.7 mmol/L (3.5-5.1)
[2021-06-27 07:00] VITALS: BP 129/61
[2021-06-27] MEDS: LACTOBACILLUS RHAMNOSUS GG 1 CAPSULE. PO SCH ×2 (08:16→20:42)
[2021-06-27] MEDS: MULTIVITAMIN with MINERAL TABLET. PO SCH (08:16)
[2021-06-27] MEDS: CHOLECALCIFEROL (VITAMIN D3) 1,000 UNIT TABLET PO SCH (08:16)
[2021-06-27] MEDS: TAMSULOSIN 0.4 MG CAP.ER.24H. PO SCH (08:16)
[2021-06-27] MEDS: ENOXAPARIN 30 MG/0.3 ML SYRINGE. SQ SCH (08:16)
--- NOTE | 2021-06-27 08:20 | PN ---
DATE: 06/27/2021 SUBJECTIVE: The patient is resting, slightly propped up in bed, in no apparent distress. He is sleepy, but arousable. On questioning him, he denied any complaint. In particular, denied any chest pain, shortness of breath. Denied any low back pain. Denied any chills, rigors or fever. His urine is much clearer now. PHYSICAL EXAMINATION: GENERAL: When I examined him, he was pale, somewhat cachectic, but not jaundiced or cyanosed. No lymphadenopathy, no thyromegaly, no jugular venous distention. No lower limb edema. VITAL SIGNS: His heart rate was 66, blood pressure was 129/57, his temperature 97.3, respiratory rate was 22 and oxygen saturation was 100% on 3 liters of oxygen. HEAD, EYES, EARS, NOSE, AND THROAT: Normocephalic, atraumatic. NECK: Supple. HEART: Showed normal first and second heart sounds. No gallop, rub or murmur. CHEST: Clear to auscultation. No crepitation or rhonchi. ABDOMEN: Scaphoid, soft, nontender. NEUROLOGIC: He was sleepy, but arousable. All his cranial nerves are intact. He moves extremities without difficulty. He has an indwelling Campos catheter. His intake over the last 24 hours was 800, output was 2775. LABORATORY DATA: As of this morning, his white cell count was 14,500; hemoglobin was 7.5; hematocrit 24; MCV 86 and platelet count 279,000. His serum sodium was 141, potassium 4.7, chloride 106, bicarbonate 28, anion gap of 7, BUN 78, creatinine was 2.4. Estimated GFR was 25 mL per minute. His glucose was 100, calcium was 8.8. ASSESSMENT: 1. Acute hypoxic respiratory failure, improving. He is now maintaining his oxygen saturation at 97% on 3 liters of oxygen by nasal cannula. 2. Acute on chronic kidney injury. His creatinine peaked up to 3.4; today, it is down to 2.4. 3. Anemia that is normochromic normocytic with a component of blood loss and perhaps dilutional. His hemoglobin and hematocrit are 7.5 and 24. 4. He has chronic lymphatic leukemia. 5. The patient has bladder cancer with bilateral hydronephrosis. 6. History of pulseless electrical activity cardiac arrest. 7. Pneumothorax that required chest tube placement and removal. 8. Paroxysmal atrial fibrillation, currently rate controlled. 9. Urinary retention for which he had an indwelling Campos catheter. 10. The patient has bilateral lower lobe infiltrate. His blood culture and urine culture has grown Pseudomonas aeruginosa. The sensitivity, which is still pending at the time of this dictation. 11. Non-ST segment elevation myocardial infarction, for which he was on heparin. The airplane dispatch clerk started him on heparin; initially, it was discontinued. PLAN: My plan is to continue with IV antibiotic. Continue with DVT prophylaxis. Continue to monitor his H and H and transfuse him as needed. I will consult Physical and Occupational Therapy. I will contact his urologist at [facility] to see whether he is a candidate for ureteral stents and further radiation or chemotherapy. I also consulted the Infectious Disease specialist. IGNACIA DR: Jaswant TID: [id number]
[2021-06-27] MEDS ORDERED: traMADol 50 MG TABLET PO SCH (09:00)
[2021-06-27] MEDS ORDERED: PIPERACILLIN/TAZOBACTAM 3.375 GM in IV NORMAL SALINE 50ML 50 ML IV SCH (09:15)
--- NOTE | 2021-06-27 09:16 | PDOC ---
Infectious Disease Note Vital Sign Vital Signs Vital Signs Date Time Temp Pulse Resp B/P (MAP) Pulse Ox O2 Delivery O2 Flow Rate FiO2 06/27/21 08:16 100 Nasal Cannula 2.0 06/27/21 07:00 97.6 65 22 129/61 (83) 97.6 Labs Lab Laboratory Tests Test 06/27/21 04:00 White Blood Count 14.8 x10^3/uL (4.0-11.0) Red Blood Count 2.86 x10^6/uL (4.30-5.70) Hemoglobin 7.5 g/dL (13.0-17.5) Hematocrit 24.5 % (39.0-53.0) Mean Corpuscular Volume 86 fL (79-100) Mean Corpuscular Hemoglobin 26 pg (25-35) Mean Corpuscular Hemoglobin Concent 31 g/dL (31-37) Red Cell Distribution Width 17.5 % (11.5-14.5) Platelet Count 279 x10^3/uL (140-400) Neutrophils (%) (Auto) 30 % (31-73) Lymphocytes (%) (Auto) 66 % (24-48) Monocytes (%) (Auto) 1 % (0-9) Eosinophils (%) (Auto) 2 % (0-3) Basophils (%) (Auto) 0 % (0-3) Neutrophils # (Auto) 4.5 x10^3/uL (1.8-7.7) Lymphocytes # (Auto) 9.8 x10^3/uL (1.0-4.8) Monocytes # (Auto) 0.2 x10^3/uL (0.0-1.1) Eosinophils # (Auto) 0.3 x10^3/uL (0.0-0.7) Basophils # (Auto) 0.0 x10^3/uL (0.0-0.2) Sodium Level 141 mmol/L (136-145) Potassium Level 4.7 mmol/L (3.5-5.1) Chloride Level 106 mmol/L (98-107) Carbon Dioxide Level 28 mmol/L (21-32) Anion Gap 7 (6-14) Blood Urea Nitrogen 78 mg/dL (8-26) Creatinine 2.4 mg/dL (0.7-1.3) Estimated GFR (Cockcroft-Gault) 25.9 Glucose Level 100 mg/dL (70-99) Calcium Level 8.8 mg/dL (8.5-10.1) Micro Microbiology 06/24/21 Urine Culture - Final, Complete 06/24/21 Antimicrobic Susceptibility - Final, Complete 06/24/21 Blood Culture - Preliminary, Resulted Objective Assessment pt seen, consult dictated Plan Plan of Care / VIMAL SAGE MD Jun 27, 2021 09:16
--- NOTE | 2021-06-27 09:35 | PDOC ---
DATE OF SERVICE DATE: 06/27/21 TIME: 09:35 SUBJECTIVE ROS No complaints OBJECTIVE Vital Signs Vital Signs Date Time Temp Pulse Resp B/P (MAP) Pulse Ox O2 Delivery O2 Flow Rate FiO2 06/27/21 08:16 100 Nasal Cannula 2.0 06/27/21 07:00 97.6 65 22 129/61 (83) 97.6 I & 0 Intake and Output 06/27/21 07:00 Intake Total 917 ml Output Total 1600 ml Balance -683 ml Intake Oral 917 ml Output Urine Total 1600 ml # Voids 1 PHYSICAL EXAM Physical Exam GENERAL: Alert, oriented gentleman, not in distress. VITAL SIGNS: Stable. Temperature 97.6, pulse 65, respirations 22, blood pressure 129/61. HEENT: Both pupils are round and reacting. No conjunctival lesion. No lesion in the mouth. NECK: Supple. No JVP, no lymphadenopathy. LUNGS: Clear. HEART: S1, S2 regular. ABDOMEN: Soft, nontender. No organomegaly. EXTREMITIES: No edema, cyanosis. SKIN: Unremarkable except he has a stage 2 decubitus on the sacrococcygeal area. Campos + DIAGNOSIS/ASSESSMENT Assessment & Plan Acute kidney injury: Presumably in the setting of bilateral hydronephrosis. Campos catheter has been placed. Watch trend of creatinine with Campos in place. Pyelonephritis possibility given significant pyuria ; Creat trending down CKD 3 at baseline per daughter - she reports never seen [employer] only Urologist due to frequent UTI's Hydronephrosis: Presumably associated with history of bladder cancer. Will need urology evaluation, the services are not available at this hospital and hence would be appropriate to transfer him to hospital facility with the same services. Preferably back to [facility] where his urologist practice. Percutaneous nephrostomy versus repeat cystoscopy for stent placement will need to be considered. Per RN no intervention recommended by urology Possible sepsis and septic shock - ID conulted Hypotension presumably due to gram-negative sepsis. history of recent PEA: For candidacy for dialysis if need arises, I feel he is a very poor candidate This was discussed extensively with the daughter and son at bedside by Dr. Delfino Laura COMMENT/RELEVANT DATA Meds Current Medications Medications (Trade) Dose Ordered Sig/Reina Start Time Stop Time Status Last Admin Dose Admin Acetaminophen (Tylenol) 1,000 mg PRN Q6HRS PRN 06/25/21 09:00 06/26/21 16:39 1,000 MG Aspirin (Aspirin Chewable) 324 mg 1X ONCE 06/25/21 01:45 06/25/21 02:36 DC 06/25/21 02:43 324 MG Atorvastatin Calcium (Lipitor) 80 mg QHS 06/25/21 21:00 06/26/21 20:09 80 MG Ceftriaxone Sodium (Rocephin) 1 gm 1X ONCE 06/25/21 01:45 06/25/21 01:46 DC 06/25/21 02:19 1 GM Enoxaparin Sodium (Lovenox 30mg Syringe) 30 mg Q24H 06/27/21 09:00 06/27/21 08:16 30 MG Enoxaparin Sodium (Lovenox Per Pharmacy Prophylaxis Dosing) 1 each PRN DAILY PRN 06/26/21 12:45 Fentanyl Citrate (Fentanyl 2ml Vial) 50 mcg PRN Q1HR PRN 06/25/21 00:15 06/26/21 00:14 DC Heparin Sodium (Porcine) (Heparin Sodium) 2,050 unit PRN Q6HRS PRN 06/25/21 01:45 06/26/21 12:47 DC 06/26/21 02:00 2,050 UNIT Heparin Sodium/ Dextrose 250 ml @ 9.852 mls/ hr CONT PRN 06/25/21 01:45 06/26/21 12:46 DC 06/25/21 22:23 13.9 MLS/HR Hydromorphone HCl (Dilaudid) 1 mg 1X ONCE 06/24/21 23:30 06/24/21 23:31 DC 06/24/21 23:40 1 MG Influenza Virus Vaccine Quadrival (Flulaval Quad [id number] Syringe) 0.5 ml ONCE ONCE 06/25/21 09:00 06/25/21 09:01 DC Info (FLU VACCINE SCREEN per RX) 1 each 1X ONCE 06/25/21 03:15 06/25/21 03:16 UNV Lactobacillus Rhamnosus (Culturelle) 1 cap BID 06/25/21 09:00 06/27/21 08:16 1 CAP Multivitamins (Thera M Plus) 1 tab DAILY 06/25/21 09:00 06/27/21 08:16 1 TAB Pharmacy Consult (C.diff Med Screen By Rx) 1 each 1X ONCE 06/25/21 03:15 06/25/21 03:16 Cancel Piperacillin Sod/ Tazobactam Sod (Zosyn Per Pharmacy) 1 each PRN DAILY PRN 06/25/21 09:00 Piperacillin Sod/ Tazobactam Sod 2.25 gm/Sodium Chloride 50 ml @ 100 mls/hr Q6HRS 06/27/21 12:00 Piperacillin Sod/ Tazobactam Sod 3.375 gm/Sodium Chloride 50 ml @ 100 mls/hr Q8HRS 06/27/21 09:15 UNV Polyethylene Glycol (miraLAX PACKET) 17 gm PRN DAILY PRN 06/25/21 09:00 Senna/Docusate Sodium (Senna Plus) 1 tab PRN BID PRN 06/25/21 09:00 06/26/21 20:09 1 TAB Sodium Chloride 1,000 ml @ 125 mls/hr 1X ONCE 06/25/21 00:15 06/25/21 08:14 DC 06/25/21 00:15 125 MLS/HR Tamsulosin HCl (Flomax) 0.4 mg DAILY 06/25/21 09:00 06/27/21 08:16 0.4 MG Tramadol HCl (Ultram) 50 mg [id number] 06/27/21 09:00 06/27/21 08:16 50 MG Vitamin D (Vitamin D3) 1,000 unit DAILY 06/25/21 09:00 06/27/21 08:16 1,000 UNIT Lab Laboratory Tests Test 06/27/21 04:00 White Blood Count 14.8 x10^3/uL (4.0-11.0) Red Blood Count 2.86 x10^6/uL (4.30-5.70) Hemoglobin 7.5 g/dL (13.0-17.5) Hematocrit 24.5 % (39.0-53.0) Mean Corpuscular Volume 86 fL (79-100) Mean Corpuscular Hemoglobin 26 pg (25-35) Mean Corpuscular Hemoglobin Concent 31 g/dL (31-37) Red Cell Distribution Width 17.5 % (11.5-14.5) Platelet Count 279 x10^3/uL (140-400) Neutrophils (%) (Auto) 30 % (31-73) Lymphocytes (%) (Auto) 66 % (24-48) Monocytes (%) (Auto) 1 % (0-9) Eosinophils (%) (Auto) 2 % (0-3) Basophils (%) (Auto) 0 % (0-3) Neutrophils # (Auto) 4.5 x10^3/uL (1.8-7.7) Lymphocytes # (Auto) 9.8 x10^3/uL (1.0-4.8) Monocytes # (Auto) 0.2 x10^3/uL (0.0-1.1) Eosinophils # (Auto) 0.3 x10^3/uL (0.0-0.7) Basophils # (Auto) 0.0 x10^3/uL (0.0-0.2) Sodium Level 141 mmol/L (136-145) Potassium Level 4.7 mmol/L (3.5-5.1) Chloride Level 106 mmol/L (98-107) Carbon Dioxide Level 28 mmol/L (21-32) Anion Gap 7 (6-14) Blood Urea Nitrogen 78 mg/dL (8-26) Creatinine 2.4 mg/dL (0.7-1.3) Estimated GFR (Cockcroft-Gault) 25.9 Glucose Level 100 mg/dL (70-99) Calcium Level 8.8 mg/dL (8.5-10.1) Results All relevant outside records, renal labs, imaging studies, telemetry/EKG's were reviewed. Justicifation of Admission Dx: Justifications for Admission: Justification of Admission Dx: N/A TATE SHEEHAN MD Jun 27, 2021 09:35
--- NOTE | 2021-06-27 09:41 | CONS ---
DATE OF CONSULTATION: 06/27/2021 REQUESTING PHYSICIAN: Elizabeth Drummond MD REASON FOR CONSULTATION: Pseudomonas UTI with bacteremia. HISTORY OF PRESENT ILLNESS: This is an 86-year-old gentleman who had been living independently at home, who was recently admitted to [facility] with UTI and had cardiac arrest requiring intubation, subsequently he was extubated and discharged to nursing facility where he was found weak, lethargic and change in mental status. The patient had a Campos catheter in the [facility], which was removed when he was discharged to this facility. The patient now has a Campos catheter. The patient does have bilateral hydronephrosis, but no obstructing stone or lesions and most likely has neurogenic bladder and not able to empty the bladder. The patient has pseudomonas in the urine as well as pseudomonas in the blood. The patient has leukocytosis, kidney failure, baseline is unknown. The patient is alert, awake, very weak and debilitated, but able to eat by himself, not in distress. The patient denies any nausea, vomiting, diarrhea, chest pain, shortness of breath, abdominal pain, urinary symptoms or bowel symptoms. PAST MEDICAL HISTORY: Positive for recent admission to [facility] with cardiorespiratory arrest requiring intubation. The patient has history of malignant neoplasm of the bladder, recent pneumothorax, chronic lymphocytic leukemia, hypertension, atrial fibrillation, gastroesophageal reflux disease. SOCIAL HISTORY: Negative for smoking, alcohol, illicit drug use. ALLERGIES: LISTED ALLERGIC TO IBUPROFEN. CURRENT MEDICATIONS: Reviewed. REVIEW OF SYSTEMS: As in HPI. All other systems reviewed are negative. PHYSICAL EXAMINATION: GENERAL: Alert, oriented gentleman, not in distress. VITAL SIGNS: Stable. Temperature 97.6, pulse 65, respirations 22, blood pressure 129/61. HEENT: Both pupils are round and reacting. No conjunctival lesion. No lesion in the mouth. NECK: Supple. No JVP, no lymphadenopathy. LUNGS: Clear. HEART: S1, S2 regular. ABDOMEN: Soft, nontender. No organomegaly. EXTREMITIES: No edema, cyanosis. SKIN: Unremarkable except he has a stage 2 decubitus on the sacrococcygeal area. LABORATORY DATA: White count is 14,000. BUN and creatinine 78 and 2.4. Urinalysis showed too numerous to count wbc's. Urine culture is pseudomonas. Blood culture is pseudomonas. The patient's blood pseudomonas susceptibilities are pending. Urine pseudomonas is pansensitive. The patient's CT of the abdomen and pelvis showed bilateral hydronephrosis and hydroureter without any obvious obstructing stone or lesion. IMPRESSION: 1. Sepsis from pseudomonas bacteremia. 2. Urinary tract infection with sepsis. 3. Encephalopathy. 4. Renal insufficiency. 5. Urinary retention with hydronephrosis. 6. Leukocytosis. RECOMMENDATIONS: Continue Zosyn, adjust the dose per renal function. Supportive care. The patient is probably going to need Campos catheter forever and/or intermittent cath. PT, OT and soon to be able to discharge back to nursing facility. I did discuss with the patient's daughter at bedside in detail. Thank you very much, Dr. Drummond for giving me opportunity to participate in this patient's care. TATIANA MCDERMOTT: Lesvia TID: [id number]
--- NOTE | 2021-06-27 10:15 | PDOC ---
JONTAHAN SALAZAR ONEL 06/27/21 1015: CARDIO Progress Notes Date and Time Date of Service 06/27/21 Time of Evaluation 1015 Subjective Subjective: No Chest Pain, No shortness of breath, No Palpitations Vitals Vitals Vital Signs Date Time Temp Pulse Resp B/P (MAP) Pulse Ox O2 Delivery O2 Flow Rate FiO2 06/27/21 09:43 20 100 Nasal Cannula 2.0 06/27/21 07:00 97.6 65 129/61 (83) 97.6 Weight Weight [ ] Input and Output Intake and Output Intake and Output 06/27/21 07:00 Intake Total 917 ml Output Total 1600 ml Balance -683 ml Intake Oral 917 ml Output Urine Total 1600 ml # Voids 1 Laboratory Labs Laboratory Tests Test 06/27/21 04:00 White Blood Count 14.8 x10^3/uL (4.0-11.0) Red Blood Count 2.86 x10^6/uL (4.30-5.70) Hemoglobin 7.5 g/dL (13.0-17.5) Hematocrit 24.5 % (39.0-53.0) Mean Corpuscular Volume 86 fL (79-100) Mean Corpuscular Hemoglobin 26 pg (25-35) Mean Corpuscular Hemoglobin Concent 31 g/dL (31-37) Red Cell Distribution Width 17.5 % (11.5-14.5) Platelet Count 279 x10^3/uL (140-400) Neutrophils (%) (Auto) 30 % (31-73) Lymphocytes (%) (Auto) 66 % (24-48) Monocytes (%) (Auto) 1 % (0-9) Eosinophils (%) (Auto) 2 % (0-3) Basophils (%) (Auto) 0 % (0-3) Neutrophils # (Auto) 4.5 x10^3/uL (1.8-7.7) Lymphocytes # (Auto) 9.8 x10^3/uL (1.0-4.8) Monocytes # (Auto) 0.2 x10^3/uL (0.0-1.1) Eosinophils # (Auto) 0.3 x10^3/uL (0.0-0.7) Basophils # (Auto) 0.0 x10^3/uL (0.0-0.2) Sodium Level 141 mmol/L (136-145) Potassium Level 4.7 mmol/L (3.5-5.1) Chloride Level 106 mmol/L (98-107) Carbon Dioxide Level 28 mmol/L (21-32) Anion Gap 7 (6-14) Blood Urea Nitrogen 78 mg/dL (8-26) Creatinine 2.4 mg/dL (0.7-1.3) Estimated GFR (Cockcroft-Gault) 25.9 Glucose Level 100 mg/dL (70-99) Calcium Level 8.8 mg/dL (8.5-10.1) Microbiology Micro Microbiology 06/24/21 Urine Culture - Final, Complete 06/24/21 Antimicrobic Susceptibility - Final, Complete 06/24/21 Blood Culture - Final, Complete 06/24/21 Antimicrobic Susceptibility - Final, Complete Physical Exam HEENT: Neck Supple W Full Motion Chest: Symmetric LUNGS: Other (diminished bases) Heart: RRR (SR/SB) Abdomen: Soft N/T Extremities: No Edema Neurology: alert, oriented, follow commands Assessment Assessment 1. Acute respiratory failure, multifactorial 2. SARAH; Cr better 3. NSTEMI; trop peak 1084. Possibly type II, demand ischemia in setting of above, but type I cannot be ruled out. CP free. Heparin discontinued due to anemia 4. S/p recent cardiac arrest at [facility]. awaiting records 5. CAD s/p CABG 2019 at [facility] 6. Acute on chronic systolic CHF; Echo 12/29 wt LVEF 45%. appears compensated 7. Hypertension; controlled 8. Hyperlipidemia; statin 9. PAFIB; not on OAC due to h/o GIB. presently SR/SB 10. CLL 11. UTI, urinary retention. US with bilateral hydronephrosis 12. Bacteremia; BC with GNR 13. H/o bladder CA Recommendations Secondary prevention Lipids No BB due to bradycardia No OAC due to anemia, h/o GIB Avoid nephrotoxins Treatment of UTI, bacteremia as per ID Supportive care Outpatient ischemic evaluation if none recently Await OSH records Justicifation of Admission Dx: Justifications for Admission: Justification of Admission Dx: Yes VT: Acute NSTEMI HIRA BEST MD 06/27/21 1965: CARDIO Progress Notes Assessment Assessment Patient seen and examined He looks and feels better today. I agree with our nurse practitioners assessment and plan. Acute respiratory failure, improved. multifactorial SARAH; Cr better NSTEMI; trop peak 1084. Possibly type II, demand ischemia in setting of above, but type I cannot be ruled out. CP free. Heparin discontinued due to anemia S/p recent cardiac arrest at [facility]. awaiting records CAD s/p CABG 2018 at [facility] Acute on chronic systolic CHF; Echo 12/29 wtih LVEF 45%. compensated Hypertension; controlled Hyperlipidemia; statin PAFIB; not on OAC due to h/o GIB. presently SR/SB CLL UTI, urinary retention. US with bilateral hydronephrosis Bacteremia; BC with GNR H/o bladder CA JONATHAN SALAZAR APRN Jun 27, 2021 10:15 HIRA BEST MD Jun 27, 2021 15:45
[2021-06-27 11:07] VITALS: BP 104/44
[2021-06-27] MEDS: traMADol 50 MG TABLET PO SCH ×4 (11:52→20:42)
[2021-06-27] MEDS ORDERED: PIPERACILLIN/TAZOBACTAM 2.25 GM in IV NORMAL SALINE 50ML 50 ML IV SCH (12:00)
--- NOTE | 2021-06-27 12:26 | NUR ---
SW following. Discussed with (PETE), chart reviewed. Pt from home, COVID-19 negative. ID, Nephrology, Wound care and Cardiology following. PT/OT ordered -PT recommending SNF. Pt not ready for discharge. SRINIVAS will continue to follow. Addendum: 06/27/21 at 1630 by OLIVIA MARX SW Correction, pt is actually from [facility] [place]. (PETE) to follow up with family, they are wanting pt to go to [facility] in [place] either SNF or with possible hospice.
[2021-06-27 14:19] VITALS: BP 108/46
--- NOTE | 2021-06-27 15:41 | NUR ---
Wound/Ostomy Care Wound Type/Assessment: Patient seen per wound care consult. See wound assessment. patient has an unstageable with DTI wound to the coccyx and a stage I to the right lateral foot. wound cleansed and assessed. The right foot is also cleansed, assessed, measured, and pictured. Patient is pleasantly confused at times. Daughter is at bedside. Treatment Recommendations/Plan: Recommendations for medi-honey gel to xeroform gauze, place to wound bed and cover with foam dressing. change on and Sunday. Dressings applied. Education provided: Patient and daughter educated on PU treatment and management. No other wounds noted. Offloading surface/device: Patient is currently on a P-500 bed, patient repositioned to right side using wedge. Recommended Referrals/Tests: N/A Discharge Recommendations for dressings: Dressing change instructions left in room as well as extra honey gel. Patient's daughter requesting more information regarding hospice and POC and goals for this patient as well discharge facilities available. Informed social work of daughters request. Bed lowered and call light in reach. Wound care will follow up on 07/05/21.
[2021-06-27 15:50] LABS: CHOLESTEROL/HDL RATIO 3.2
[2021-06-27] MEDS: ASPIRIN ENTERIC COATED 81 MG TABLET.DR. PO SCH (16:15)
[2021-06-27 19:21] VITALS: BP 141/64
[2021-06-27] MEDS: ATORVASTATIN CALCIUM 40 MG TABLET. PO SCH (20:42)
[2021-06-27] MEDS: CYCLOBENZAPRINE 10 MG TABLET. PO PRN (22:47)
[2021-06-27 23:06] VITALS: BP 152/72
[2021-06-28] MEDS: PIPERACILLIN/TAZOBACTAM 3.375 GM in IV NORMAL SALINE 50ML 50 ML IV SCH ×5 (00:17→23:57)
[2021-06-28 03:17] VITALS: BP 150/69
[2021-06-28] MEDS: traMADol 50 MG TABLET PO SCH ×8 (03:47→23:57)
[2021-06-28 04:10] LABS: HEMATOCRIT 25.4 % (39.0-53.0); HEMOGLOBIN 8.1 g/dL (13.0-17.5); RED CELL DISTRIBUTION WIDTH 17.8 % (11.5-14.5); WHITE BLOOD COUNT 15.2 x10^3/uL (4.0-11.0)
[2021-06-28 05:30] LABS: CALCIUM 8.8 mg/dL (8.5-10.1); CREATININE 2.1 mg/dL (0.7-1.3); GFR 30.2; POTASSIUM 4.6 mmol/L (3.5-5.1)
[2021-06-28 07:58] VITALS: BP 149/59
[2021-06-28] MEDS: ASPIRIN ENTERIC COATED 81 MG TABLET.DR. PO SCH (08:58)
[2021-06-28] MEDS: CHOLECALCIFEROL (VITAMIN D3) 1,000 UNIT TABLET PO SCH (08:58)
[2021-06-28] MEDS: LACTOBACILLUS RHAMNOSUS GG 1 CAPSULE. PO SCH ×2 (08:59→22:04)
[2021-06-28] MEDS: TAMSULOSIN 0.4 MG CAP.ER.24H. PO SCH (08:59)
[2021-06-28] MEDS: ENOXAPARIN 30 MG/0.3 ML SYRINGE. SQ SCH (08:59)
[2021-06-28] MEDS: MULTIVITAMIN with MINERAL TABLET. PO SCH (08:59)
--- NOTE | 2021-06-28 09:03 | PDOC ---
CARDIO Progress Notes Date and Time Date of Service 06/28/21 Time of Evaluation 1210 Subjective Subjective: No Chest Pain, No shortness of breath, No Palpitations, No Dizziness Vitals Vitals Vital Signs Date Time Temp Pulse Resp B/P (MAP) Pulse Ox O2 Delivery O2 Flow Rate FiO2 06/28/21 08:59 97 Nasal Cannula 2.0 06/28/21 07:58 98.1 69 22 149/59 (89) 98.1 Weight Weight [ ] Input and Output Intake and Output Intake and Output 06/28/21 07:00 Intake Total 1000 ml Output Total 2600 ml Balance -1600 ml Intake Oral 950 ml IV Total 50 ml Output Urine Total 2600 ml Laboratory Labs Laboratory Tests Test 06/28/21 03:30 White Blood Count 15.2 x10^3/uL (4.0-11.0) Red Blood Count 3.00 x10^6/uL (4.30-5.70) Hemoglobin 8.1 g/dL (13.0-17.5) Hematocrit 25.4 % (39.0-53.0) Mean Corpuscular Volume 85 fL (79-100) Mean Corpuscular Hemoglobin 27 pg (25-35) Mean Corpuscular Hemoglobin Concent 32 g/dL (31-37) Red Cell Distribution Width 17.8 % (11.5-14.5) Platelet Count 316 x10^3/uL (140-400) Sodium Level 143 mmol/L (136-145) Potassium Level 4.6 mmol/L (3.5-5.1) Chloride Level 107 mmol/L (98-107) Carbon Dioxide Level 29 mmol/L (21-32) Anion Gap 7 (6-14) Blood Urea Nitrogen 62 mg/dL (8-26) Creatinine 2.1 mg/dL (0.7-1.3) Estimated GFR (Cockcroft-Gault) 30.2 Glucose Level 89 mg/dL (70-99) Calcium Level 8.8 mg/dL (8.5-10.1) Microbiology Micro Microbiology 06/24/21 Urine Culture - Final, Complete 06/24/21 Antimicrobic Susceptibility - Final, Complete 06/24/21 Blood Culture - Final, Complete 06/24/21 Antimicrobic Susceptibility - Final, Complete Physical Exam HEENT: Neck Supple W Full Motion Chest: Symmetric LUNGS: Other (diminished bases) Heart: RRR (SR/SB) Abdomen: Soft N/T Extremities: No Edema Neurology: alert, oriented, follow commands Assessment Assessment 1. Acute respiratory failure, multifactorial 2. SARAH; Cr better 3. NSTEMI; trop peak 1084. Possibly type II, demand ischemia in setting of above. CP free. Heparin discontinued due to anemia 4. S/p recent cardiac arrest at [facility]. awaiting records 5. CAD s/p CABG 2019 at [facility] 6. Acute on chronic systolic CHF; Echo 12/29 wt LVEF 45%. appears compensated 7. Hypertension; controlled 8. Hyperlipidemia; statin 9. PAFIB; not on OAC due to h/o GIB. presently SR/SB 10. CLL 11. UTI, urinary retention. US with bilateral hydronephrosis 12. Bacteremia; BC with GNR 13. H/o bladder CA Recommendations Secondary prevention No BB due to bradycardia No OAC due to anemia, h/o GIB Avoid nephrotoxins Treatment of UTI, bacteremia as per ID Supportive care Outpatient ischemic evaluation if none recently Await OSH records Justicifation of Admission Dx: Justifications for Admission: Justification of Admission Dx: Yes PR: Acute NSTEMI JONATHAN SALAZAR APRN Jun 28, 2021 09:02
--- NOTE | 2021-06-28 09:10 | PDOC ---
Infectious Disease Note Subjective Subjective Patient is feeling dejected. Unable to walk and he knows that with that he is not going to be able to go home ever ROS ROS No nausea vomiting diarrhea chest pain shortness of breath abdominal pain Vital Sign Vital Signs Vital Signs Date Time Temp Pulse Resp B/P (MAP) Pulse Ox O2 Delivery O2 Flow Rate FiO2 06/28/21 08:59 97 Nasal Cannula 2.0 06/28/21 07:58 98.1 69 22 149/59 (89) 98.1 Physical Exam PHYSICAL EXAM GENERAL: Alert, oriented gentleman, not in distress. VITAL SIGNS: Stable. HEENT: Both pupils are round and reacting. No conjunctival lesion. No lesion in the mouth. NECK: Supple. No JVP, no lymphadenopathy. LUNGS: Clear. HEART: S1, S2 regular. ABDOMEN: Soft, nontender. No organomegaly. EXTREMITIES: No edema, cyanosis. SKIN: Unremarkable except he has a stage 2 decubitus on the sacrococcygeal area. Labs Lab Laboratory Tests Test 06/28/21 03:30 White Blood Count 15.2 x10^3/uL (4.0-11.0) Red Blood Count 3.00 x10^6/uL (4.30-5.70) Hemoglobin 8.1 g/dL (13.0-17.5) Hematocrit 25.4 % (39.0-53.0) Mean Corpuscular Volume 85 fL (79-100) Mean Corpuscular Hemoglobin 27 pg (25-35) Mean Corpuscular Hemoglobin Concent 32 g/dL (31-37) Red Cell Distribution Width 17.8 % (11.5-14.5) Platelet Count 316 x10^3/uL (140-400) Sodium Level 143 mmol/L (136-145) Potassium Level 4.6 mmol/L (3.5-5.1) Chloride Level 107 mmol/L (98-107) Carbon Dioxide Level 29 mmol/L (21-32) Anion Gap 7 (6-14) Blood Urea Nitrogen 62 mg/dL (8-26) Creatinine 2.1 mg/dL (0.7-1.3) Estimated GFR (Cockcroft-Gault) 30.2 Glucose Level 89 mg/dL (70-99) Calcium Level 8.8 mg/dL (8.5-10.1) Micro Pseudomonas UTI and Pseudomonas bacteremia Objective Assessment IMPRESSION: 1. Sepsis from pseudomonas bacteremia. 2. Urinary tract infection with sepsis. 3. Encephalopathy. 4. Renal insufficiency. 5. Urinary retention with hydronephrosis. 6. Leukocytosis. Plan Plan of Care Okay to discharge on IV cefepime through midline for total 2 weeks Discussed with VIMAL Riley MD Jun 28, 2021 09:10
--- NOTE | 2021-06-28 09:22 | PN ---
DATE: 06/28/2021 SUBJECTIVE: The patient is resting, slightly propped up in bed, in no apparent respiratory distress, awake, alert. On questioning him, he denied any complaint. PHYSICAL EXAMINATION: GENERAL: When I examined him, he was pale, but not jaundiced or cyanosed. No lymphadenopathy. No thyromegaly. No jugular venous distention. No lower limb edema. VITAL SIGNS: His heart rate was 69, blood pressure was 149/59, temperature was 98.1, respiratory rate was 22 and oxygen saturation was 97% on 2 liters of oxygen. HEAD, EYES, EARS, NOSE AND THROAT: Normocephalic, atraumatic. NECK: Supple. HEART: Showed normal first and second heart sounds. No gallop, rub or murmur. CHEST: Clear to auscultation. No crepitation or rhonchi. ABDOMEN: Distended, soft, nontender. NEUROLOGIC: He was more awake, alert, responding appropriately. Cranial nerves intact. He moves extremities without difficulty. He has an indwelling Campos catheter. His intake was 1000, output was 1600. LABORATORY DATA: Showed a white cell count 15,200, hemoglobin 8.1, hematocrit 25, MCV 85 and platelet count 316,000. His chemistry showed a serum sodium 143, potassium 4.6, chloride 107, bicarbonate 29, anion gap of 7, BUN 62, creatinine 2.1. Estimated GFR was 50 mL per minute. His glucose was 89, calcium was 8.8. Serum triglyceride was 49, total cholesterol 86, VLDL cholesterol of 49, VLDL was 10, HDL cholesterol was 27 and ratio was 3.2. His blood culture has grown Pseudomonas aeruginosa, sensitive to cefepime, Cipro, ceftazidime as well as piperacillin, tazobactam and tobramycin. ASSESSMENT: 1. Acute hypoxic respiratory failure, improving. He is now maintaining his oxygen saturation at 97% on 2 liters of oxygen by nasal cannula. 2. Acute on chronic kidney injury, improving. His creatinine is down to 2.1. 3. Anemia that is normochromic normocytic with a component of blood loss and perhaps dilutional. His hemoglobin and hematocrit was 8.1 and 24. 4. He has chronic lymphatic leukemia. 5. He has bladder cancer with bilateral hydronephrosis. 6. Pneumothorax that required chest tube placement and removal. 7. Paroxysmal atrial fibrillation, currently rate controlled. 8. Urinary retention for which he had an indwelling Campos catheter. 9. The patient has bilateral lower lobe infiltrate. Blood culture and urine culture has grown pseudomonas, the sensitivity which is available now. 11. He has non-ST segment elevation myocardial infarction, felt to be either type 2 demand ischemia, however, type 1 cannot be ruled out. PLAN: My plan is to arrange for him to have midline and check his COVID status, it was not done and he can be discharged back to [facility] if the family agreeable to that. EVA DR: Jaswant TID: [id number]
--- NOTE | 2021-06-28 09:56 | PDOC ---
DATE OF SERVICE DATE: 06/28/21 TIME: 09:54 SUBJECTIVE ROS states "Im feeling miserable, Im dying, i will have to go to Palliative care " OBJECTIVE Vital Signs Vital Signs Date Time Temp Pulse Resp B/P (MAP) Pulse Ox O2 Delivery O2 Flow Rate FiO2 06/28/21 08:59 97 Nasal Cannula 2.0 06/28/21 07:58 98.1 69 22 149/59 (89) 98.1 I & 0 Intake and Output 06/28/21 07:00 Intake Total 1000 ml Output Total 2600 ml Balance -1600 ml Intake Oral 950 ml IV Total 50 ml Output Urine Total 2600 ml PHYSICAL EXAM Physical Exam GENERAL: Alert, oriented gentleman, not in distress. VITAL SIGNS: Stable. Temperature 97.6, pulse 65, respirations 22, blood pressure 129/61. HEENT: Both pupils are round and reacting. No conjunctival lesion. No lesion in the mouth. NECK: Supple. No JVP, no lymphadenopathy. LUNGS: Clear. HEART: S1, S2 regular. ABDOMEN: Soft, nontender. No organomegaly. EXTREMITIES: No edema, cyanosis. SKIN: Unremarkable except he has a stage 2 decubitus on the sacrococcygeal area. Campos + DIAGNOSIS/ASSESSMENT Assessment & Plan Acute kidney injury: bilateral hydronephrosis., has Campos in place, Pyelonephr itis possibility given significant pyuria ; , Creatinine Improving Supportive care, strict I/O, avoid Nephrotoxins CKD 3 at baseline per daughter - she reports never seen Undercoat Sprayer only Urologist due to frequent UTI's Hydronephrosis: Presumably associated with history of bladder cancer. Will need urology evaluation, the services are not available at this hospital and hence would be appropriate to transfer him to hospital facility with the same services. Preferably back to [facility] where his urologist practice. Percutaneous nephrostomy versus repeat cystoscopy for stent placement will need to be considered. Per RN no intervention recommended by urology Possible sepsis and septic shock - ID conulted Hypotension presumably due to gram-negative sepsis. history of recent PEA: For candidacy for dialysis if need arises, I feel he is a very poor candidate This was discussed extensively with the daughter and son at bedside by Dr. Delfino Laura COMMENT/RELEVANT DATA Meds Current Medications Medications (Trade) Dose Ordered Sig/Reina Start Time Stop Time Status Last Admin Dose Admin Acetaminophen (Tylenol) 1,000 mg PRN Q6HRS PRN 06/25/21 09:00 06/26/21 16:39 1,000 MG Aspirin (Aspirin Chewable) 324 mg 1X ONCE 06/25/21 01:45 06/25/21 02:36 DC 06/25/21 02:43 324 MG Aspirin (Ecotrin) 81 mg DAILYWBKFT 06/27/21 16:00 06/28/21 08:58 81 MG Atorvastatin Calcium (Lipitor) 80 mg QHS 06/25/21 21:00 06/27/21 20:42 80 MG Ceftriaxone Sodium (Rocephin) 1 gm 1X ONCE 06/25/21 01:45 06/25/21 01:46 DC 06/25/21 02:19 1 GM Cyclobenzaprine HCl (Flexeril) 5 mg PRN QHS PRN 06/27/21 20:00 06/27/21 22:47 5 MG Enoxaparin Sodium (Lovenox 30mg Syringe) 30 mg Q24H 06/27/21 09:00 06/28/21 08:59 30 MG Enoxaparin Sodium (Lovenox Per Pharmacy Prophylaxis Dosing) 1 each PRN DAILY PRN 06/26/21 12:45 Fentanyl Citrate (Fentanyl 2ml Vial) 50 mcg PRN Q1HR PRN 06/25/21 00:15 06/26/21 00:14 DC Heparin Sodium (Porcine) (Heparin Sodium) 2,050 unit PRN Q6HRS PRN 06/25/21 01:45 06/26/21 12:47 DC 06/26/21 02:00 2,050 UNIT Heparin Sodium/ Dextrose 250 ml @ 9.852 mls/ hr CONT PRN 06/25/21 01:45 06/26/21 12:46 DC 06/25/21 22:23 13.9 MLS/HR Hydromorphone HCl (Dilaudid) 1 mg 1X ONCE 06/24/21 23:30 06/24/21 23:31 DC 06/24/21 23:40 1 MG Influenza Virus Vaccine Quadrival (Flulaval Quad [id number] Syringe) 0.5 ml ONCE ONCE 06/25/21 09:00 06/25/21 09:01 DC Info (FLU VACCINE SCREEN per RX) 1 each 1X ONCE 06/25/21 03:15 06/25/21 03:16 UNV Lactobacillus Rhamnosus (Culturelle) 1 cap BID 06/25/21 09:00 06/28/21 08:59 1 CAP Multivitamins (Thera M Plus) 1 tab DAILY 06/25/21 09:00 06/28/21 08:59 1 TAB Pharmacy Consult (C.diff Med Screen By Rx) 1 each 1X ONCE 06/25/21 03:15 06/25/21 03:16 Cancel Piperacillin Sod/ Tazobactam Sod (Zosyn Per Pharmacy) 1 each PRN DAILY PRN 06/25/21 09:00 Piperacillin Sod/ Tazobactam Sod 2.25 gm/Sodium Chloride 50 ml @ 100 mls/hr Q6HRS 06/27/21 12:00 Cancel Piperacillin Sod/ Tazobactam Sod 3.375 gm/Sodium Chloride 50 ml @ 100 mls/hr Q6HRS 06/27/21 12:00 06/28/21 05:41 100 MLS/HR Polyethylene Glycol (miraLAX PACKET) 17 gm PRN DAILY PRN 06/25/21 09:00 Senna/Docusate Sodium (Senna Plus) 1 tab PRN BID PRN 06/25/21 09:00 06/26/21 20:09 1 TAB Sodium Chloride 1,000 ml @ 125 mls/hr 1X ONCE 06/25/21 00:15 06/25/21 08:14 DC 06/25/21 00:15 125 MLS/HR Tamsulosin HCl (Flomax) 0.4 mg DAILY 06/25/21 09:00 06/28/21 08:59 0.4 MG Tramadol HCl (Ultram) 50 mg Q4HRS 06/27/21 12:00 06/28/21 08:59 50 MG Vitamin D (Vitamin D3) 1,000 unit DAILY 06/25/21 09:00 06/28/21 08:58 1,000 UNIT Lab Laboratory Tests Test 06/28/21 03:30 White Blood Count 15.2 x10^3/uL (4.0-11.0) Red Blood Count 3.00 x10^6/uL (4.30-5.70) Hemoglobin 8.1 g/dL (13.0-17.5) Hematocrit 25.4 % (39.0-53.0) Mean Corpuscular Volume 85 fL (79-100) Mean Corpuscular Hemoglobin 27 pg (25-35) Mean Corpuscular Hemoglobin Concent 32 g/dL (31-37) Red Cell Distribution Width 17.8 % (11.5-14.5) Platelet Count 316 x10^3/uL (140-400) Sodium Level 143 mmol/L (136-145) Potassium Level 4.6 mmol/L (3.5-5.1) Chloride Level 107 mmol/L (98-107) Carbon Dioxide Level 29 mmol/L (21-32) Anion Gap 7 (6-14) Blood Urea Nitrogen 62 mg/dL (8-26) Creatinine 2.1 mg/dL (0.7-1.3) Estimated GFR (Cockcroft-Gault) 30.2 Glucose Level 89 mg/dL (70-99) Calcium Level 8.8 mg/dL (8.5-10.1) Results All relevant outside records, renal labs, imaging studies, telemetry/EKG's were reviewed. Justicifation of Admission Dx: Justifications for Admission: Justification of Admission Dx: Yes [place]: Acute NSTEMI TATE SHEEHAN MD Jun 28, 2021 09:56
[2021-06-28 10:41] VITALS: BP 152/62
--- NOTE | 2021-06-28 13:04 | NUR ---
SS following up with discharge planning. SS reviewed pt chart and discussed with pt RN. Pt is from [facility], ; fax [phone]. COVID19 negative. PT/OT recommended longterm unit. Pt on IV Zosyn. Per Dr. Drummond, pt will need midline placement and IV Cefepime at discharge. Pt's family requesting that pt not return to [facility] and requested referral be phoned and faxed to [facility] in [place], ; fax [phone], for skilled rehabilitation. Pt's son stated that if not accepted he would be okay with skilled rehabilitation center at [facility]. SS phoned and faxed referral as requested. [facility] stated that there clinical team is reviewing. SS will continue to follow for discharge planning.
[2021-06-28 15:40] VITALS: BP 147/60
[2021-06-28 19:00] VITALS: BP 181/70
--- NOTE | 2021-06-28 19:20 | NUR ---
Pt in bed with c/o pain to abdomen unable to rate pain level, assessment completed vss poc explained pt reoriented to surroundings and call light placed in reach will resume care and continue to monitor pt.
[2021-06-28] MEDS: ATORVASTATIN CALCIUM 40 MG TABLET. PO SCH (22:05)
[2021-06-28 23:00] VITALS: BP 173/85
[2021-06-29 03:00] VITALS: BP 155/75
[2021-06-29] MEDS: traMADol 50 MG TABLET PO SCH ×7 (03:57→23:37)
[2021-06-29] MEDS: PIPERACILLIN/TAZOBACTAM 3.375 GM in IV NORMAL SALINE 50ML 50 ML IV SCH ×4 (05:45→23:38)
[2021-06-29 07:55] VITALS: BP 164/62
[2021-06-29] MEDS: ASPIRIN ENTERIC COATED 81 MG TABLET.DR. PO SCH (08:11)
[2021-06-29] MEDS: CHOLECALCIFEROL (VITAMIN D3) 1,000 UNIT TABLET PO SCH (08:11)
[2021-06-29] MEDS: ENOXAPARIN 30 MG/0.3 ML SYRINGE. SQ SCH (08:12)
[2021-06-29] MEDS: TAMSULOSIN 0.4 MG CAP.ER.24H. PO SCH (08:12)
[2021-06-29] MEDS: LACTOBACILLUS RHAMNOSUS GG 1 CAPSULE. PO SCH ×2 (08:12→21:47)
[2021-06-29] MEDS: MULTIVITAMIN with MINERAL TABLET. PO SCH (08:12)
[2021-06-29 09:55] LABS: CALCIUM 8.4 mg/dL (8.5-10.1); POTASSIUM 4.7 mmol/L (3.5-5.1)
[2021-06-29] MEDS ORDERED: LEVO750T5 PO (09:56)
[2021-06-29] MEDS ORDERED: TRAM100T12 PO (10:01)
[2021-06-29] MEDS ORDERED: TRAM50TA PO (10:01)
--- NOTE | 2021-06-29 10:03 | PDOC ---
Infectious Disease Note Subjective Subjective Patient is feeling better he says he did walk a little bit yesterday ROS ROS No nausea vomiting diarrhea chest pain shortness of breath Vital Sign Vital Signs Vital Signs Date Time Temp Pulse Resp B/P (MAP) Pulse Ox O2 Delivery O2 Flow Rate FiO2 06/29/21 08:12 23 98 Nasal Cannula 2.0 06/29/21 07:55 97.9 65 164/62 (96) 97.9 Physical Exam PHYSICAL EXAM GENERAL: Alert, oriented gentleman, not in distress. VITAL SIGNS: Stable. HEENT: Both pupils are round and reacting. No conjunctival lesion. No lesion in the mouth. NECK: Supple. No JVP, no lymphadenopathy. LUNGS: Clear. HEART: S1, S2 regular. ABDOMEN: Soft, nontender. No organomegaly. EXTREMITIES: No edema, cyanosis. SKIN: Unremarkable except he has a stage 2 decubitus on the sacrococcygeal area. Labs Lab Laboratory Tests Test 06/28/21 17:09 06/29/21 09:30 Glucose (Fingerstick) 108 mg/dL (70-99) Sodium Level 144 mmol/L (136-145) Potassium Level 4.7 mmol/L (3.5-5.1) Chloride Level 109 mmol/L (98-107) Carbon Dioxide Level 32 mmol/L (21-32) Anion Gap 3 (6-14) Blood Urea Nitrogen 45 mg/dL (8-26) Creatinine 2.0 mg/dL (0.7-1.3) Estimated GFR (Cockcroft-Gault) 32.0 Glucose Level 133 mg/dL (70-99) Calcium Level 8.4 mg/dL (8.5-10.1) Micro Pseudomonas UTI and Pseudomonas bacteremia Objective Assessment IMPRESSION: 1. Sepsis from pseudomonas bacteremia. 2. Urinary tract infection with sepsis. 3. Encephalopathy. 4. Renal insufficiency. 5. Urinary retention with hydronephrosis. 6. Leukocytosis. Plan Plan of Care Okay to discharge on IV cefepime through midline for total 2 weeks if continued aggressive care As per RN what the family is deciding on hospice then antibiotics can be switched to p.o. ciprofloxacin for 2 weeks VIMAL SAGE MD Jun 29, 2021 10:03
--- NOTE | 2021-06-29 10:29 | PDOC ---
DATE OF SERVICE DATE: 06/29/21 TIME: 10:28 SUBJECTIVE ROS stable, No new concerns OBJECTIVE Vital Signs Vital Signs Date Time Temp Pulse Resp B/P (MAP) Pulse Ox O2 Delivery O2 Flow Rate FiO2 06/29/21 08:12 23 98 Nasal Cannula 2.0 06/29/21 07:55 97.9 65 164/62 (96) 97.9 I & 0 Intake and Output 06/29/21 07:00 Intake Total 270 ml Output Total 2250 ml Balance -1980 ml Intake Oral 220 ml IV Total 50 ml Output Urine Total 2250 ml PHYSICAL EXAM Physical Exam GENERAL: Alert, oriented gentleman, not in distress. VITAL SIGNS: Stable. Temperature 97.6, pulse 65, respirations 22, blood pressure 129/61. HEENT: Both pupils are round and reacting. No conjunctival lesion. No lesion in the mouth. NECK: Supple. No JVP, no lymphadenopathy. LUNGS: Clear. HEART: S1, S2 regular. ABDOMEN: Soft, nontender. No organomegaly. EXTREMITIES: No edema, cyanosis. SKIN: Unremarkable except he has a stage 2 decubitus on the sacrococcygeal area. Campos + DIAGNOSIS/ASSESSMENT Assessment & Plan Acute kidney injury: bilateral hydronephrosis., has Campos in place, Pyelonephritis possibility given significant pyuria ; , Creatinine Improving Supportive care, strict I/O, avoid Nephrotoxins CKD 3 at baseline per daughter - she reports never seen Respiratory Assistant only Urologist due to frequent UTI's Hydronephrosis: Presumably associated with history of bladder cancer. Per RN no intervention recommended by urology at [facility] Possible sepsis and septic shock - ID following Hypotension presumably due to gram-negative sepsis. history of recent PEA: For candidacy for dialysis if need arises, I feel he is a very poor candidate.This was discussed extensively with the daughter and son at bedside by Dr. Delfino Laura. Currently no indication for dialysis COMMENT/RELEVANT DATA Meds Current Medications Medications (Trade) Dose Ordered Sig/Reina Start Time Stop Time Status Last Admin Dose Admin Acetaminophen (Tylenol) 1,000 mg PRN Q6HRS PRN 06/25/21 09:00 06/26/21 16:39 1,000 MG Aspirin (Aspirin Chewable) 324 mg 1X ONCE 06/25/21 01:45 06/25/21 02:36 DC 06/25/21 02:43 324 MG Aspirin (Ecotrin) 81 mg DAILYWBKFT 06/27/21 16:00 06/29/21 08:11 81 MG Atorvastatin Calcium (Lipitor) 80 mg QHS 06/25/21 21:00 06/28/21 22:05 80 MG Ceftriaxone Sodium (Rocephin) 1 gm 1X ONCE 06/25/21 01:45 06/25/21 01:46 DC 06/25/21 02:19 1 GM Cyclobenzaprine HCl (Flexeril) 5 mg PRN QHS PRN 06/27/21 20:00 06/27/21 22:47 5 MG Enoxaparin Sodium (Lovenox 30mg Syringe) 30 mg Q24H 06/27/21 09:00 06/29/21 08:12 30 MG Enoxaparin Sodium (Lovenox Per Pharmacy Prophylaxis Dosing) 1 each PRN DAILY PRN 06/26/21 12:45 Fentanyl Citrate (Fentanyl 2ml Vial) 50 mcg PRN Q1HR PRN 06/25/21 00:15 06/26/21 00:14 DC Heparin Sodium (Porcine) (Heparin Sodium) 2,050 unit PRN Q6HRS PRN 06/25/21 01:45 06/26/21 12:47 DC 06/26/21 02:00 2,050 UNIT Heparin Sodium/ Dextrose 250 ml @ 9.852 mls/ hr CONT PRN 06/25/21 01:45 06/26/21 12:46 DC 06/25/21 22:23 13.9 MLS/HR Hydromorphone HCl (Dilaudid) 1 mg 1X ONCE 06/24/21 23:30 06/24/21 23:31 DC 06/24/21 23:40 1 MG Influenza Virus Vaccine Quadrival (Flulaval Quad [id number] Syringe) 0.5 ml ONCE ONCE 06/25/21 09:00 06/25/21 09:01 DC Info (FLU VACCINE SCREEN per RX) 1 each 1X ONCE 06/25/21 03:15 06/25/21 03:16 UNV Lactobacillus Rhamnosus (Culturelle) 1 cap BID 06/25/21 09:00 06/29/21 08:12 1 CAP Multivitamins (Thera M Plus) 1 tab DAILY 06/25/21 09:00 06/29/21 08:12 1 TAB Pharmacy Consult (C.diff Med Screen By Rx) 1 each 1X ONCE 06/25/21 03:15 06/25/21 03:16 Cancel Piperacillin Sod/ Tazobactam Sod (Zosyn Per Pharmacy) 1 each PRN DAILY PRN 06/25/21 09:00 Piperacillin Sod/ Tazobactam Sod 2.25 gm/Sodium Chloride 50 ml @ 100 mls/hr Q6HRS 06/27/21 12:00 Cancel Piperacillin Sod/ Tazobactam Sod 3.375 gm/Sodium Chloride 50 ml @ 100 mls/hr Q6HRS 06/27/21 12:00 06/29/21 05:45 100 MLS/HR Polyethylene Glycol (miraLAX PACKET) 17 gm PRN DAILY PRN 06/25/21 09:00 Senna/Docusate Sodium (Senna Plus) 1 tab PRN BID PRN 06/25/21 09:00 06/26/21 20:09 1 TAB Sodium Chloride 1,000 ml @ 125 mls/hr 1X ONCE 06/25/21 00:15 06/25/21 08:14 DC 06/25/21 00:15 125 MLS/HR Tamsulosin HCl (Flomax) 0.4 mg DAILY 06/25/21 09:00 06/29/21 08:12 0.4 MG Tramadol HCl (Ultram) 50 mg Q4HRS 06/27/21 12:00 06/29/21 08:12 50 MG Vitamin D (Vitamin D3) 1,000 unit DAILY 06/25/21 09:00 06/29/21 08:11 1,000 UNIT Lab Laboratory Tests Test 06/28/21 17:09 06/29/21 09:30 Glucose (Fingerstick) 108 mg/dL (70-99) Sodium Level 144 mmol/L (136-145) Potassium Level 4.7 mmol/L (3.5-5.1) Chloride Level 109 mmol/L (98-107) Carbon Dioxide Level 32 mmol/L (21-32) Anion Gap 3 (6-14) Blood Urea Nitrogen 45 mg/dL (8-26) Creatinine 2.0 mg/dL (0.7-1.3) Estimated GFR (Cockcroft-Gault) 32.0 Glucose Level 133 mg/dL (70-99) Calcium Level 8.4 mg/dL (8.5-10.1) Results All relevant outside records, renal labs, imaging studies, telemetry/EKG's were reviewed. Justicifation of Admission Dx: Justifications for Admission: Justification of Admission Dx: Yes [place]: Acute NSTEMI TATE SHEEHAN MD Jun 29, 2021 10:29
[2021-06-29 11:25] VITALS: BP 132/67
--- NOTE | 2021-06-29 11:25 | PDOC ---
CARDIO Progress Notes Date and Time Date of Service 06/29/21 Time of Evaluation 1210 Subjective Subjective: No Chest Pain, No shortness of breath, No Palpitations, No Dizziness Vitals Vitals Vital Signs Date Time Temp Pulse Resp B/P (MAP) Pulse Ox O2 Delivery O2 Flow Rate FiO2 06/29/21 08:40 23 98 Nasal Cannula 2.0 06/29/21 07:55 97.9 65 164/62 (96) 97.9 Weight Weight [ ] Input and Output Intake and Output Intake and Output 06/29/21 07:00 Intake Total 270 ml Output Total 2250 ml Balance -1980 ml Intake Oral 220 ml IV Total 50 ml Output Urine Total 2250 ml Laboratory Labs Laboratory Tests Test 06/28/21 17:09 06/29/21 09:30 Glucose (Fingerstick) 108 mg/dL (70-99) Sodium Level 144 mmol/L (136-145) Potassium Level 4.7 mmol/L (3.5-5.1) Chloride Level 109 mmol/L (98-107) Carbon Dioxide Level 32 mmol/L (21-32) Anion Gap 3 (6-14) Blood Urea Nitrogen 45 mg/dL (8-26) Creatinine 2.0 mg/dL (0.7-1.3) Estimated GFR (Cockcroft-Gault) 32.0 Glucose Level 133 mg/dL (70-99) Calcium Level 8.4 mg/dL (8.5-10.1) Microbiology Micro Microbiology 06/24/21 Urine Culture - Final, Complete 06/24/21 Antimicrobic Susceptibility - Final, Complete 06/24/21 Blood Culture - Final, Complete 06/24/21 Antimicrobic Susceptibility - Final, Complete Physical Exam HEENT: Neck Supple W Full Motion Chest: Symmetric LUNGS: Other (diminished bases) Heart: RRR (SR/SB) Abdomen: Soft N/T Extremities: No Edema Neurology: alert, oriented, follow commands Assessment Assessment 1. Acute respiratory failure, multifactorial 2. SARAH; Cr better 3. NSTEMI; trop peak 1084. Possibly type II, demand ischemia in setting of above. CP free. Heparin discontinued due to anemia 4. S/p recent cardiac arrest at [facility]. awaiting records 5. CAD s/p CABG 2019 at [facility] 6. Acute on chronic systolic CHF; Echo 12/29 with LVEF 45%. appears compensated 7. Hypertension; controlled 8. Hyperlipidemia; statin 9. PAFIB; not on OAC due to h/o GIB. presently SR/SB 10. CLL 11. UTI, urinary retention. US with bilateral hydronephrosis 12. Bacteremia; BC with GNR 13. H/o bladder CA Recommendations Secondary prevention No BB due to bradycardia No OAC due to anemia, h/o GIB Avoid nephrotoxins Treatment of UTI, bacteremia as per ID Supportive care Outpatient ischemic evaluation if none recently No OSH records received Justicifation of Admission Dx: Justifications for Admission: Justification of Admission Dx: Yes [place]: Acute NSTEMI JONATHAN SALAZAR APRN Jun 29, 2021 11:25
--- NOTE | 2021-06-29 11:26 | NUR ---
SS following up with discharge planning. SS reviewed pt chart and discussed with pt RN. Pt is currently requiring oxygen at two liters nasal canula. COVID19 negative. Pt on IV Zosyn. PT/OT recommended retirement unit. SS contacted [facility] in [place], ; fax [phone], this morning and was notified that they are still reviewing clinical and financial's. SS contacted pt 's son and pt's son requested that SS send referrals to [facility], ; fax [phone], and [facility] in [place], . SS phoned and faxed referral to [facility]. [facility] reported that they no longer have retirement unit or LTC. Pt's son notified. Pt's son requesting information on hospice. Pt's son spoke with [facility], ; fax [phone], via phone and is scheduling informational visit. SS will continue to follow for discharge planning.
[2021-06-29 14:26] VITALS: BP 114/46
[2021-06-29 19:36] VITALS: BP 160/67
[2021-06-29] MEDS: ATORVASTATIN CALCIUM 40 MG TABLET. PO SCH (21:49)
[2021-06-29 22:52] VITALS: BP 175/60
[2021-06-30 02:45] VITALS: BP 156/66
[2021-06-30] MEDS: traMADol 50 MG TABLET PO SCH ×6 (03:52→22:20)
--- NOTE | 2021-06-30 03:57 | NUR ---
Pt awake, Pt.denied pain at this time and is refusing his 0400 am tramadol.
[2021-06-30] MEDS: PIPERACILLIN/TAZOBACTAM 3.375 GM in IV NORMAL SALINE 50ML 50 ML IV SCH ×2 (06:00→12:11)
[2021-06-30 07:00] VITALS: BP 156/72
--- NOTE | 2021-06-30 09:17 | PDOC ---
DATE OF SERVICE DATE: 06/30/21 TIME: 09:17 SUBJECTIVE ROS stable, No new concerns OBJECTIVE Vital Signs Vital Signs Date Time Temp Pulse Resp B/P (MAP) Pulse Ox O2 Delivery O2 Flow Rate FiO2 06/30/21 07:00 97.7 71 18 156/72 (100) 99 Nasal Cannula 2.0 97.7 I & 0 Intake and Output 06/30/21 07:00 Intake Total 1630 ml Output Total 2000 ml Balance -370 ml Intake Oral 1580 ml IV Total 50 ml Output Urine Total 2000 ml PHYSICAL EXAM Physical Exam GENERAL: Alert, oriented gentleman, not in distress. VITAL SIGNS: Stable. Temperature 97.6, pulse 65, respirations 22, blood pressure 129/61. HEENT: Both pupils are round and reacting. No conjunctival lesion. No lesion in the mouth. NECK: Supple. No JVP, no lymphadenopathy. LUNGS: Clear. HEART: S1, S2 regular. ABDOMEN: Soft, nontender. No organomegaly. EXTREMITIES: No edema, cyanosis. SKIN: Unremarkable except he has a stage 2 decubitus on the sacrococcygeal area. Campos + DIAGNOSIS/ASSESSMENT Assessment & Plan Acute kidney injury: bilateral hydronephrosis., has Campos in place, Pyelonephritis possibility given significant pyuria ; , Creatinine Improving Supportive care, strict I/O, avoid Nephrotoxins CKD 3 at baseline per daughter - she reports never seen Extrusion Technician only Urologist due to frequent UTI's Hydronephrosis: Presumably associated with history of bladder cancer. Per RN no intervention recommended by urology at [facility] Possible sepsis and septic shock - ID following Hypotension presumably due to gram-negative sepsis. history of recent PEA: For candidacy for dialysis if need arises, I feel he is a very poor candidate.This was discussed extensively with the daughter and son at bedside by Dr. Delfino Laura. Currently no indication for dialysis COMMENT/RELEVANT DATA Meds Current Medications Medications (Trade) Dose Ordered Sig/Reina Start Time Stop Time Status Last Admin Dose Admin Acetaminophen (Tylenol) 1,000 mg PRN Q6HRS PRN 06/25/21 09:00 06/26/21 16:39 1,000 MG Aspirin (Aspirin Chewable) 324 mg 1X ONCE 06/25/21 01:45 06/25/21 02:36 DC 06/25/21 02:43 324 MG Aspirin (Ecotrin) 81 mg DAILYWBKFT 06/27/21 16:00 06/29/21 08:11 81 MG Atorvastatin Calcium (Lipitor) 80 mg QHS 06/25/21 21:00 06/29/21 21:49 80 MG Ceftriaxone Sodium (Rocephin) 1 gm 1X ONCE 06/25/21 01:45 06/25/21 01:46 DC 06/25/21 02:19 1 GM Cyclobenzaprine HCl (Flexeril) 5 mg PRN QHS PRN 06/27/21 20:00 06/27/21 22:47 5 MG Enoxaparin Sodium (Lovenox 30mg Syringe) 30 mg Q24H 06/27/21 09:00 06/29/21 08:12 30 MG Enoxaparin Sodium (Lovenox Per Pharmacy Prophylaxis Dosing) 1 each PRN DAILY PRN 06/26/21 12:45 Fentanyl Citrate (Fentanyl 2ml Vial) 50 mcg PRN Q1HR PRN 06/25/21 00:15 06/26/21 00:14 DC Heparin Sodium (Porcine) (Heparin Sodium) 2,050 unit PRN Q6HRS PRN 06/25/21 01:45 06/26/21 12:47 DC 06/26/21 02:00 2,050 UNIT Heparin Sodium/ Dextrose 250 ml @ 9.852 mls/ hr CONT PRN 06/25/21 01:45 06/26/21 12:46 DC 06/25/21 22:23 13.9 MLS/HR Hydromorphone HCl (Dilaudid) 1 mg 1X ONCE 06/24/21 23:30 06/24/21 23:31 DC 06/24/21 23:40 1 MG Influenza Virus Vaccine Quadrival (Flulaval Quad [id number] Syringe) 0.5 ml ONCE ONCE 06/25/21 09:00 06/25/21 09:01 DC Info (FLU VACCINE SCREEN per RX) 1 each 1X ONCE 06/25/21 03:15 06/25/21 03:16 UNV Lactobacillus Rhamnosus (Culturelle) 1 cap BID 06/25/21 09:00 06/29/21 21:47 1 CAP Multivitamins (Thera M Plus) 1 tab DAILY 06/25/21 09:00 06/29/21 08:12 1 TAB Pharmacy Consult (C.diff Med Screen By Rx) 1 each 1X ONCE 06/25/21 03:15 06/25/21 03:16 Cancel Piperacillin Sod/ Tazobactam Sod (Zosyn Per Pharmacy) 1 each PRN DAILY PRN 06/25/21 09:00 Piperacillin Sod/ Tazobactam Sod 2.25 gm/Sodium Chloride 50 ml @ 100 mls/hr Q6HRS 06/27/21 12:00 Cancel Piperacillin Sod/ Tazobactam Sod 3.375 gm/Sodium Chloride 50 ml @ 100 mls/hr Q6HRS 06/27/21 12:00 06/30/21 06:00 100 MLS/HR Polyethylene Glycol (miraLAX PACKET) 17 gm PRN DAILY PRN 06/25/21 09:00 Senna/Docusate Sodium (Senna Plus) 1 tab PRN BID PRN 06/25/21 09:00 06/26/21 20:09 1 TAB Sodium Chloride 1,000 ml @ 125 mls/hr 1X ONCE 06/25/21 00:15 06/25/21 08:14 DC 06/25/21 00:15 125 MLS/HR Tamsulosin HCl (Flomax) 0.4 mg DAILY 06/25/21 09:00 06/29/21 08:12 0.4 MG Tramadol HCl (Ultram) 50 mg Q4HRS 06/27/21 12:00 06/29/21 23:37 50 MG Vitamin D (Vitamin D3) 1,000 unit DAILY 06/25/21 09:00 06/29/21 08:11 1,000 UNIT Lab Laboratory Tests Test 06/29/21 09:30 06/29/21 11:28 Sodium Level 144 mmol/L (136-145) Potassium Level 4.7 mmol/L (3.5-5.1) Chloride Level 109 mmol/L (98-107) Carbon Dioxide Level 32 mmol/L (21-32) Anion Gap 3 (6-14) Blood Urea Nitrogen 45 mg/dL (8-26) Creatinine 2.0 mg/dL (0.7-1.3) Estimated GFR (Cockcroft-Gault) 32.0 Glucose Level 133 mg/dL (70-99) Calcium Level 8.4 mg/dL (8.5-10.1) Glucose (Fingerstick) 103 mg/dL (70-99) Results All relevant outside records, renal labs, imaging studies, telemetry/EKG's were reviewed. Justicifation of Admission Dx: Justifications for Admission: Justification of Admission Dx: Yes [place]: Acute NSTEMI TATE SHEEHAN MD Jun 30, 2021 09:17
[2021-06-30] MEDS: TAMSULOSIN 0.4 MG CAP.ER.24H. PO SCH (09:21)
[2021-06-30] MEDS: CHOLECALCIFEROL (VITAMIN D3) 1,000 UNIT TABLET PO SCH (09:21)
[2021-06-30] MEDS: MULTIVITAMIN with MINERAL TABLET. PO SCH (09:21)
[2021-06-30] MEDS: ASPIRIN ENTERIC COATED 81 MG TABLET.DR. PO SCH (09:21)
[2021-06-30] MEDS: ENOXAPARIN 30 MG/0.3 ML SYRINGE. SQ SCH (09:22)
[2021-06-30] MEDS: LACTOBACILLUS RHAMNOSUS GG 1 CAPSULE. PO SCH ×2 (09:22→20:58)
--- NOTE | 2021-06-30 09:52 | PDOC ---
Infectious Disease Note Subjective Subjective Patient is feeling better he says he did walk a little bit yesterday ROS ROS No nausea vomiting diarrhea chest pain shortness of breath Vital Sign Vital Signs Vital Signs Date Time Temp Pulse Resp B/P (MAP) Pulse Ox O2 Delivery O2 Flow Rate FiO2 06/30/21 09:22 99 Nasal Cannula 2.0 06/30/21 07:00 97.7 71 18 156/72 (100) 97.7 Physical Exam PHYSICAL EXAM GENERAL: Alert, oriented gentleman, not in distress. VITAL SIGNS: Stable. HEENT: Both pupils are round and reacting. No conjunctival lesion. No lesion in the mouth. NECK: Supple. No JVP, no lymphadenopathy. LUNGS: Clear. HEART: S1, S2 regular. ABDOMEN: Soft, nontender. No organomegaly. EXTREMITIES: No edema, cyanosis. SKIN: Unremarkable except he has a stage 2 decubitus on the sacrococcygeal area. Labs Lab Laboratory Tests Test 06/29/21 11:28 Glucose (Fingerstick) 103 mg/dL (70-99) Micro Pseudomonas UTI and Pseudomonas bacteremia Objective Assessment IMPRESSION: 1. Sepsis from pseudomonas bacteremia. 2. Urinary tract infection with sepsis. 3. Encephalopathy. 4. Renal insufficiency. 5. Urinary retention with hydronephrosis. 6. Leukocytosis. Plan Plan of Care Okay to discharge on IV cefepime through midline for total 2 weeks if continued aggressive care PT OT VIMAL SAGE MD Jun 30, 2021 09:52
[2021-06-30 10:12] LABS: HEMATOCRIT 27.3 % (39.0-53.0); HEMOGLOBIN 8.3 g/dL (13.0-17.5); RED BLOOD COUNT 3.18 x10^6/uL (4.30-5.70); RED CELL DISTRIBUTION WIDTH 18.1 % (11.5-14.5); WHITE BLOOD COUNT 15.8 x10^3/uL (4.0-11.0)
[2021-06-30 10:14] LABS: CALCIUM 8.6 mg/dL (8.5-10.1); CREATININE 1.6 mg/dL (0.7-1.3); GFR 41.4; POTASSIUM 4.6 mmol/L (3.5-5.1)
[2021-06-30 10:18] VITALS: BP 154/72
--- NOTE | 2021-06-30 10:25 | PN ---
DATE: 06/30/2021 SUBJECTIVE: The patient is sitting propped up in bed, eating his breakfast comfortably, in no apparent distress. On questioning him, he denied any complaint. Nursing staff did not voice any concerns, stated that he had an uneventful night. His family has not made up their mind whether to go to a [facility] facility or hospice. Our social sciences lecturer is working to clarify. PHYSICAL EXAMINATION: GENERAL: When I examined him this morning, he looked pale, but not jaundiced, cyanosed. No thyromegaly. No jugular venous distention. No limb edema. VITAL SIGNS: His heart rate was 71, blood pressure 156/72, temperature was 97.7, respiratory rate was 18 and oxygen saturation was 99% on 2 liters of oxygen. HEAD, EYES, EARS, NOSE, AND THROAT: Normocephalic, atraumatic. NECK: Supple. HEART: Normal first and second heart sounds. No gallop, rub or murmur. CHEST: Shows central trachea, equal bilateral chest expansion, air entry, vesicular breath sounds. No crepitation or rhonchi. ABDOMEN: Distended, soft, nontender. NEUROLOGIC: He was awake, alert, responding appropriately. Cranial nerves intact. He moves extremities without difficulty. He has an indwelling Campos catheter. He has sacral decubitus ulcer. His intake over the last 24 hours was 2270, output was 2250. LABORATORY DATA: Today's labs are still pending at the time of this dictation. As of yesterday, his serum sodium was 144, potassium 4.7, chloride 109, bicarbonate 32, anion gap of 3, BUN 45, creatinine 2, estimated GFR was 32 mL per minute. His glucose 133, calcium was 8.4. His white cell count was 15,200, hemoglobin 8, hematocrit 25, MCV 85 and platelet count 316,000. ASSESSMENT: 1. Acute hypoxic respiratory failure, improved. He is now maintaining his oxygen saturation at 99% on 2 liters of oxygen by nasal cannula. 2. Acute on chronic kidney injury, improving. His creatinine is down to 2 mg/dL. 3. Anemia that is normochromic normocytic with a component of blood loss, perhaps delusional. His hemoglobin and hematocrit is 8.1 and 24. 4. He has chronic lymphatic leukemia. 5. He has bladder cancer with bilateral hydronephrosis. 6. Pneumothorax that required chest tube placement and removal while he was at [facility]. 7. Paroxysmal atrial fibrillation, currently rate controlled. 8. Urinary retention for which he has an indwelling Campos catheter. 9. The patient has bilateral lower lobe infiltrate and his blood and urine culture has grown pseudomonas that is sensitive to multiple antibiotics. 10. The patient has non-ST segment elevation myocardial infarction, felt to be either type 2 demand ischemia versus type 1; however, type 1 cannot be ruled out. PLAN: To continue with IV antibiotics. Continue to monitor his H and H and transfuse him as needed. Continue with all other medications. Continue with wound care. Once he has an accepting facility, we will have to arrange for him to have a midline and he can be discharged to continue with IV antibiotic in the form of cefepime. AARON DR: Jaswant TID: [id number]
--- NOTE | 2021-06-30 12:29 | PDOC ---
CARDIO Progress Notes Date and Time Date of Service 06/30/21 Time of Evaluation 1220 Subjective Subjective: No Chest Pain, No shortness of breath, No Palpitations, No Dizziness Vitals Vitals Vital Signs Date Time Temp Pulse Resp B/P (MAP) Pulse Ox O2 Delivery O2 Flow Rate FiO2 06/30/21 10:18 97.4 60 16 154/72 (99) 98 Nasal Cannula 2.0 97.4 Weight Weight [ ] Input and Output Intake and Output Intake and Output 06/30/21 07:00 Intake Total 1630 ml Output Total 2000 ml Balance -370 ml Intake Oral 1580 ml IV Total 50 ml Output Urine Total 2000 ml Laboratory Labs Laboratory Tests Test 06/30/21 09:50 White Blood Count 15.8 x10^3/uL (4.0-11.0) Red Blood Count 3.18 x10^6/uL (4.30-5.70) Hemoglobin 8.3 g/dL (13.0-17.5) Hematocrit 27.3 % (39.0-53.0) Mean Corpuscular Volume 86 fL (79-100) Mean Corpuscular Hemoglobin 26 pg (25-35) Mean Corpuscular Hemoglobin Concent 30 g/dL (31-37) Red Cell Distribution Width 18.1 % (11.5-14.5) Platelet Count 331 x10^3/uL (140-400) Sodium Level 144 mmol/L (136-145) Potassium Level 4.6 mmol/L (3.5-5.1) Chloride Level 108 mmol/L (98-107) Carbon Dioxide Level 30 mmol/L (21-32) Anion Gap 6 (6-14) Blood Urea Nitrogen 38 mg/dL (8-26) Creatinine 1.6 mg/dL (0.7-1.3) Estimated GFR (Cockcroft-Gault) 41.4 Glucose Level 91 mg/dL (70-99) Calcium Level 8.6 mg/dL (8.5-10.1) Microbiology Micro Microbiology 06/24/21 Urine Culture - Final, Complete 06/24/21 Antimicrobic Susceptibility - Final, Complete 06/24/21 Blood Culture - Final, Complete 06/24/21 Antimicrobic Susceptibility - Final, Complete Physical Exam HEENT: Neck Supple W Full Motion Chest: Symmetric LUNGS: Other (diminished bases) Heart: RRR (SR/SB) Abdomen: Soft N/T Extremities: No Edema Neurology: alert, oriented, follow commands Assessment Assessment 1. Acute respiratory failure, multifactorial 2. SARAH; Cr better 3. NSTEMI; trop peak 1084. Possibly type II, demand ischemia in setting of above. CP free. Heparin discontinued due to anemia 4. S/p recent cardiac arrest at [facility]. awaiting records 5. CAD s/p CABG 2019 at [facility] 6. Acute on chronic systolic CHF; Echo 12/29 with LVEF 45%. appears compensated 7. Hypertension; controlled 8. Hyperlipidemia; statin 9. PAFIB; not on OAC due to h/o GIB. presently SR/SB 10. CLL 11. UTI, urinary retention. US with bilateral hydronephrosis 12. Bacteremia; BC with GNR 13. H/o bladder CA Recommendations Secondary prevention No BB due to bradycardia No OAC due to anemia, h/o GIB Avoid nephrotoxins Treatment of UTI, bacteremia as per ID Supportive care Outpatient ischemic evaluation if none recently No OSH records received Justicifation of Admission Dx: Justifications for Admission: Justification of Admission Dx: Yes MA: Acute NSTEMI JONATHAN SALAZAR APRN Jun 30, 2021 12:29
--- NOTE | 2021-06-30 14:47 | NUR ---
SS following up with discharge planning. SS reviewed pt chart and discussed with pt RN. Pt is currently requiring oxygen at two liters nasal canula .COVID19 negative. Pt on IV Zosyn. [facility] and [facility] have declined pt for prison unit. SS contacted pt's son and discussed in length. Pt's family adamantly against going back to [facility]. Pt's son requested SS phone and fax referrals to [facility], ; fax [phone], [facility], ; fax [phone], [facility], ; fax [phone], and [facility], ; fax [phone]. SS phoned and faxed referrals as requested. Pt's family wanting prison unit at this time and are declining hospice services at this time. SS will continue to follow for discharge planning.
[2021-06-30 15:00] VITALS: BP 159/64
[2021-06-30] MEDS: PIPERACILLIN/TAZOBACTAM 4.5 GM in IV NORMAL SALINE 100ML 100 ML IV SCH (17:49)
[2021-06-30 19:00] VITALS: BP_SYST 170; BP_SYST 70; BP_DIAS 64
[2021-06-30] MEDS: ATORVASTATIN CALCIUM 40 MG TABLET. PO SCH (20:58)
[2021-06-30 22:49] VITALS: BP 155/62
[2021-07-01 02:38] VITALS: BP 150/69
[2021-07-01] MEDS: traMADol 50 MG TABLET PO SCH ×7 (04:00→21:22)
--- NOTE | 2021-07-01 04:21 | NUR ---
Pt asleep 0400 tramadol held will monitor pt.
[2021-07-01 05:42] LABS: CALCIUM 8.8 mg/dL (8.5-10.1); CREATININE 1.7 mg/dL (0.7-1.3); GFR 38.6; POTASSIUM 4.6 mmol/L (3.5-5.1)
[2021-07-01] MEDS: PIPERACILLIN/TAZOBACTAM 4.5 GM in IV NORMAL SALINE 100ML 100 ML IV SCH ×5 (05:51→23:29)
[2021-07-01 07:00] VITALS: BP 165/61
--- NOTE | 2021-07-01 08:01 | PDOC ---
Infectious Disease Note Subjective Subjective Patient is feeling better No very weak and unable to do much anything ROS ROS No nausea vomiting diarrhea chest pain shortness of breath Vital Sign Vital Signs Vital Signs Date Time Temp Pulse Resp B/P (MAP) Pulse Ox O2 Delivery O2 Flow Rate FiO2 07/01/21 02:38 97.6 91 18 150/69 (96) 99 Nasal Cannula 2.0 97.6 Physical Exam PHYSICAL EXAM GENERAL: Alert, oriented gentleman, not in distress. VITAL SIGNS: Stable. HEENT: Both pupils are round and reacting. No conjunctival lesion. No lesion in the mouth. NECK: Supple. No JVP, no lymphadenopathy. LUNGS: Clear. HEART: S1, S2 regular. ABDOMEN: Soft, nontender. No organomegaly. EXTREMITIES: No edema, cyanosis. SKIN: Unremarkable except he has a stage 2 decubitus on the sacrococcygeal area. Labs Lab Laboratory Tests Test 06/30/21 09:50 07/01/21 05:00 White Blood Count 15.8 x10^3/uL (4.0-11.0) Red Blood Count 3.18 x10^6/uL (4.30-5.70) Hemoglobin 8.3 g/dL (13.0-17.5) Hematocrit 27.3 % (39.0-53.0) Mean Corpuscular Volume 86 fL (79-100) Mean Corpuscular Hemoglobin 26 pg (25-35) Mean Corpuscular Hemoglobin Concent 30 g/dL (31-37) Red Cell Distribution Width 18.1 % (11.5-14.5) Platelet Count 331 x10^3/uL (140-400) Sodium Level 144 mmol/L (136-145) 146 mmol/L (136-145) Potassium Level 4.6 mmol/L (3.5-5.1) 4.6 mmol/L (3.5-5.1) Chloride Level 108 mmol/L (98-107) 108 mmol/L (98-107) Carbon Dioxide Level 30 mmol/L (21-32) 31 mmol/L (21-32) Anion Gap 6 (6-14) 7 (6-14) Blood Urea Nitrogen 38 mg/dL (8-26) 35 mg/dL (8-26) Creatinine 1.6 mg/dL (0.7-1.3) 1.7 mg/dL (0.7-1.3) Estimated GFR (Cockcroft-Gault) 41.4 38.6 Glucose Level 91 mg/dL (70-99) 89 mg/dL (70-99) Calcium Level 8.6 mg/dL (8.5-10.1) 8.8 mg/dL (8.5-10.1) Micro Pseudomonas UTI and Pseudomonas bacteremia Objective Assessment IMPRESSION: 1. Sepsis from pseudomonas bacteremia. 2. Urinary tract infection with sepsis. 3. Encephalopathy. 4. Renal insufficiency. 5. Urinary retention with hydronephrosis. 6. Leukocytosis. Plan Plan of Care Okay to discharge on IV cefepime through midline for total 2 weeks PT OT VIMAL SAGE MD Jul 01, 2021 08:01
--- NOTE | 2021-07-01 08:27 | PDOC ---
DATE OF SERVICE DATE: 07/01/21 TIME: 08:25 SUBJECTIVE ROS stable, No new concerns OBJECTIVE Vital Signs Vital Signs Date Time Temp Pulse Resp B/P (MAP) Pulse Ox O2 Delivery O2 Flow Rate FiO2 07/01/21 02:38 97.6 91 18 150/69 (96) 99 Nasal Cannula 2.0 97.6 I & 0 Intake and Output 07/01/21 07:00 Intake Total 1055 ml Output Total 1800 ml Balance -745 ml Intake Oral 1055 ml Output Urine Total 1800 ml PHYSICAL EXAM Physical Exam GENERAL: Alert, oriented gentleman, not in distress. VITAL SIGNS: Stable. Temperature 97.6, pulse 65, respirations 22, blood pressure 129/61. HEENT: Both pupils are round and reacting. No conjunctival lesion. No lesion in the mouth. NECK: Supple. No JVP, no lymphadenopathy. LUNGS: Clear. HEART: S1, S2 regular. ABDOMEN: Soft, nontender. No organomegaly. EXTREMITIES: No edema, cyanosis. SKIN: Unremarkable except he has a stage 2 decubitus on the sacrococcygeal area. Campos + DIAGNOSIS/ASSESSMENT Assessment & Plan Acute kidney injury: bilateral hydronephrosis., has Campos in place, Pyelonephritis possibility given significant pyuria ; , Creatinine Improved, stable Supportive care, strict I/O, avoid Nephrotoxins HyperNatremia- Mild, Encourage PO fluid intake CKD 3 at baseline per daughter - she reports never seen Vice President Of Customer Service only Urologist due to frequent UTI's Hydronephrosis: Presumably associated with history of bladder cancer. Per RN no intervention recommended by urology at [facility] Possible sepsis and septic shock - ID following Hypotension presumably due to gram-negative sepsis. history of recent PEA: For candidacy for dialysis if need arises, I feel he is a very poor candidate.This was discussed extensively with the daughter and son at bedside by Dr. Delfino Laura. Currently no indication for dialysis COMMENT/RELEVANT DATA Meds Current Medications Medications (Trade) Dose Ordered Sig/Reina Start Time Stop Time Status Last Admin Dose Admin Acetaminophen (Tylenol) 1,000 mg PRN Q6HRS PRN 06/25/21 09:00 06/26/21 16:39 1,000 MG Aspirin (Aspirin Chewable) 324 mg 1X ONCE 06/25/21 01:45 06/25/21 02:36 DC 06/25/21 02:43 324 MG Aspirin (Ecotrin) 81 mg [id number] 06/27/21 16:00 06/30/21 09:21 81 MG Atorvastatin Calcium (Lipitor) 80 mg QHS 06/25/21 21:00 06/30/21 20:58 80 MG Ceftriaxone Sodium (Rocephin) 1 gm 1X ONCE 06/25/21 01:45 06/25/21 01:46 DC 06/25/21 02:19 1 GM Cyclobenzaprine HCl (Flexeril) 5 mg PRN QHS PRN 06/27/21 20:00 06/27/21 22:47 5 MG Enoxaparin Sodium (Lovenox 30mg Syringe) 30 mg Q24H 06/27/21 09:00 06/30/21 12:57 DC 06/30/21 09:22 30 MG Enoxaparin Sodium (Lovenox 40mg Syringe) 40 mg DAILY 07/01/21 09:00 Enoxaparin Sodium (Lovenox Per Pharmacy Prophylaxis Dosing) 1 each PRN DAILY PRN 06/26/21 12:45 Fentanyl Citrate (Fentanyl 2ml Vial) 50 mcg PRN Q1HR PRN 06/25/21 00:15 06/26/21 00:14 DC Heparin Sodium (Porcine) (Heparin Sodium) 2,050 unit PRN Q6HRS PRN 06/25/21 01:45 06/26/21 12:47 DC 06/26/21 02:00 2,050 UNIT Heparin Sodium/ Dextrose 250 ml @ 9.852 mls/ hr CONT PRN 06/25/21 01:45 06/26/21 12:46 DC 06/25/21 22:23 13.9 MLS/HR Hydromorphone HCl (Dilaudid) 1 mg 1X ONCE 06/24/21 23:30 06/24/21 23:31 DC 06/24/21 23:40 1 MG Influenza Virus Vaccine Quadrival (Flulaval Quad 7900-0834 Syringe) 0.5 ml ONCE ONCE 06/25/21 09:00 06/25/21 09:01 DC Info (FLU VACCINE SCREEN per RX) 1 each 1X ONCE 06/25/21 03:15 06/25/21 03:16 UNV Lactobacillus Rhamnosus (Culturelle) 1 cap BID 06/25/21 09:00 06/30/21 20:58 1 CAP Multivitamins (Thera M Plus) 1 tab DAILY 06/25/21 09:00 06/30/21 09:21 1 TAB Pharmacy Consult (C.diff Med Screen By Rx) 1 each 1X ONCE 06/25/21 03:15 06/25/21 03:16 Cancel Piperacillin Sod/ Tazobactam Sod (Zosyn Per Pharmacy) 1 each PRN DAILY PRN 06/25/21 09:00 Piperacillin Sod/ Tazobactam Sod 2.25 gm/Sodium Chloride 50 ml @ 100 mls/hr Q6HRS 06/27/21 12:00 Cancel Piperacillin Sod/ Tazobactam Sod 3.375 gm/Sodium Chloride 50 ml @ 100 mls/hr Q6HRS 06/27/21 12:00 06/30/21 12:59 DC 06/30/21 12:11 100 MLS/HR Piperacillin Sod/ Tazobactam Sod 4.5 gm/Sodium Chloride 100 ml @ 200 mls/hr Q6HRS 06/30/21 18:00 07/01/21 05:51 200 MLS/HR Polyethylene Glycol (miraLAX PACKET) 17 gm PRN DAILY PRN 06/25/21 09:00 Senna/Docusate Sodium (Senna Plus) 1 tab PRN BID PRN 06/25/21 09:00 06/26/21 20:09 1 TAB Sodium Chloride 1,000 ml @ 125 mls/hr 1X ONCE 06/25/21 00:15 06/25/21 08:14 DC 06/25/21 00:15 125 MLS/HR Tamsulosin HCl (Flomax) 0.4 mg DAILY 06/25/21 09:00 06/30/21 09:21 0.4 MG Tramadol HCl (Ultram) 50 mg Q4HRS 06/27/21 12:00 06/30/21 09:22 50 MG Vitamin D (Vitamin D3) 1,000 unit DAILY 06/25/21 09:00 06/30/21 09:21 1,000 UNIT Lab Laboratory Tests Test 06/30/21 09:50 07/01/21 05:00 White Blood Count 15.8 x10^3/uL (4.0-11.0) Red Blood Count 3.18 x10^6/uL (4.30-5.70) Hemoglobin 8.3 g/dL (13.0-17.5) Hematocrit 27.3 % (39.0-53.0) Mean Corpuscular Volume 86 fL (79-100) Mean Corpuscular Hemoglobin 26 pg (25-35) Mean Corpuscular Hemoglobin Concent 30 g/dL (31-37) Red Cell Distribution Width 18.1 % (11.5-14.5) Platelet Count 331 x10^3/uL (140-400) Sodium Level 144 mmol/L (136-145) 146 mmol/L (136-145) Potassium Level 4.6 mmol/L (3.5-5.1) 4.6 mmol/L (3.5-5.1) Chloride Level 108 mmol/L (98-107) 108 mmol/L (98-107) Carbon Dioxide Level 30 mmol/L (21-32) 31 mmol/L (21-32) Anion Gap 6 (6-14) 7 (6-14) Blood Urea Nitrogen 38 mg/dL (8-26) 35 mg/dL (8-26) Creatinine 1.6 mg/dL (0.7-1.3) 1.7 mg/dL (0.7-1.3) Estimated GFR (Cockcroft-Gault) 41.4 38.6 Glucose Level 91 mg/dL (70-99) 89 mg/dL (70-99) Calcium Level 8.6 mg/dL (8.5-10.1) 8.8 mg/dL (8.5-10.1) Results All relevant outside records, renal labs, imaging studies, telemetry/EKG's were reviewed. Justicifation of Admission Dx: Justifications for Admission: Justification of Admission Dx: Yes SC: Acute NSTEMI TATE SHEEHAN MD Jul 01, 2021 08:26
[2021-07-01] MEDS: ENOXAPARIN 40 MG/0.4 ML SYRINGE. SQ SCH (10:41)
[2021-07-01] MEDS: LACTOBACILLUS RHAMNOSUS GG 1 CAPSULE. PO SCH ×2 (10:41→21:22)
[2021-07-01] MEDS: ASPIRIN ENTERIC COATED 81 MG TABLET.DR. PO SCH (10:41)
[2021-07-01] MEDS: MULTIVITAMIN with MINERAL TABLET. PO SCH (10:41)
[2021-07-01] MEDS: CHOLECALCIFEROL (VITAMIN D3) 1,000 UNIT TABLET PO SCH (10:41)
[2021-07-01] MEDS: TAMSULOSIN 0.4 MG CAP.ER.24H. PO SCH (10:41)
[2021-07-01 10:45] VITALS: BP 150/65
[2021-07-01] MEDS ORDERED: CEFE100B IV (10:56)
--- NOTE | 2021-07-01 11:01 | SNU/HH DC ---
DISCHARGE ORDERS DISCHARGE INFORMATION: DISCHARGE DATE: Jul 01, 2021 FINAL DIAGNOSIS Problems Medical Problems: (1) Leukocytosis Status: Acute (2) Respiratory failure Status: Acute (3) Urinary tract infection Status: Acute CONDITION ON DISCHARGE: Stable CODE STATUS: Code Status: DNR/DNI NURSING HOME: SNF STAY <30 DAYS: Yes POST DISCHARGE ORDERS: ACTIVITY ORDERS: Activity as tolerated DIET AFTER DISCHARGE: Renal TREATMENT/EQUIPMENT ORDERS: INFUSION EQUIPMENT NEEDED: PICC Line RESPIRATORY EQUIPMENT NEEDED: Oxygen Physical Therapy For: Evalulation/Treatment Occupational Therapy For: Evaluation/Treatment DISCHARGE MEDICATIONS: Home Meds Active Scripts Cefepime HCl (Cefepime HCl) 100 Gm Bulkbaginj, 0.5 GM IV DAILY for sepsis for 10 Days, #10 BOT 0 Refills Prov:LUCIE BURNETT MD 07/01/21 Tramadol Hcl (TRAMADOL HCL ER) 100 Mg Tab.er.24h, 1 TAB PO QHS PRN for pain MDD 1 Tablet(s) for 30 Days, #30 TAB 0 Refills Prov:LUCIE BURNETT MD 06/29/21 Tramadol Hcl (TRAMADOL HCL) 50 Mg Tablet, 50 MG PO BID for pain, #60 TAB 0 Refills Prov:LUCIE BURNETT MD 06/29/21 Reported Medications Sennosides/Docusate Sodium (SENNOSIDES-DOCUSATE SODIUM TAB) 1 Each Tablet, 1 EACH PO PRN BID PRN for , TAB 06/25/21 Rosuvastatin Calcium (CRESTOR) 40 Mg Tablet, 20 MG PO HS for FOR CHOLESTEROL, #30 TAB 0 Refills 06/25/21 Polyethylene Glycol 3350 (POLYETHYLENE GLYCOL 3350) 2,500 Gm Powder, 17 GM PO PRN DAILY PRN for for 30 Days, #527 GM 0 Refills 06/25/21 Multivitamin (MULTI VITAMIN DAILY) 1 Each Tablet, 1 TAB PO DAILY for for 30 Days, #30 TAB 0 Refills 06/25/21 Glucosamine Hcl/Chondr Alicea A Na (CIDAFLEX TABLET) 1 Each Tablet, 1 TAB PO BID for for 30 Days, #60 TAB 0 Refills 06/25/21 Tamsulosin Hcl (FLOMAX) 0.4 Mg Cap.er.24h, 0.4 MG PO DAILY for , TAB 06/25/21 Cholecalciferol (Vitamin D3) (Vitamin D3 ) 25 Mcg Tablet, 25 MCG PO DAILY for SUPPLEMENT, TAB 1,000 UNITS = 25 MCG 06/25/21 Acetaminophen (ACETAMINOPHEN) 500 Mg Tablet, 2 TAB PO PRN Q6HRS PRN for pain or fever for 15 Days, #60 TAB 0 Refills 06/25/21 Discontinued Reported Medications Tramadol Hcl (TRAMADOL HCL) 100 Mg Tbmp.24hr, 100 MG PO PRN QHS PRN for PAIN, TAB 0 Refills 06/25/21 Tramadol Hcl (TRAMADOL HCL) 50 Mg Tablet, 50 MG PO PRN BID PRN for PAIN, TAB 06/25/21 Lisinopril (LISINOPRIL) 10 Mg Tablet, 10 MG PO DAILY for FOR HYPERTENSION, #30 TAB 0 Refills 06/25/21 Cefdinir (CEFDINIR) 300 Mg Capsule, 300 MG PO BID for for 7 Days, #14 CAP 0 Refills 06/25/21 Aspirin (ASPIRIN EC) 81 Mg Tablet.dr, 1 TAB PO DAILY for , #90 TAB 3 Refills 06/25/21 LUCIE BURNETT MD Jul 01, 2021 11:01
--- NOTE | 2021-07-01 11:23 | PN ---
DATE: 07/01/2021 SUBJECTIVE: The patient is sitting slightly propped up in bed, in no apparent distress. He is awake, alert, responding appropriately. All his cranial nerves are intact. He moves extremities without difficulty. He apparently was seen yesterday by physical therapy and required 2-person assist to get him to sit on the edge of the bed where he sat for about 8 minutes. On questioning him, he denied any complaint. The nursing staff did not voice any concerns, stated that he has uneventful night. Medically, the patient is stable to be discharged. I actually discharged him to a retirement facility. I left a message with his son to make his decision whether he goes to retirement facility and/or hospice. He can appeal this discharge. PHYSICAL EXAMINATION: GENERAL: When I examined him, he was pale, not jaundiced or cyanosed. No lymphadenopathy, no thyromegaly, no jugular venous distention. No limb edema. VITAL SIGNS: His heart rate was 88, blood pressure was 165/61, his temperature was 98, respiratory rate 20 and oxygen saturation was 99% on 2 liters of oxygen. HEAD, EYES, EARS, NOSE AND THROAT: Normocephalic, atraumatic. NECK: Supple. HEART: Showed normal first and second heart sounds. No gallop or murmur. CHEST: Clear to auscultation. No crepitation or rhonchi. ABDOMEN: Distended, soft, nontender. NEUROLOGIC: He was definitely more awake, alert, responding appropriately. All cranial nerves intact. He moves extremities without difficulty, although he is mostly bedbound. He does participate with physical therapy. He continued to require assistance. LABORATORY DATA: As of this morning, his serum sodium is 146, potassium 4.6, chloride 108, bicarbonate 31, anion gap of 7, BUN 35, creatinine 1.7. Estimated GFR was 38 mL per minute. His glucose was 89, calcium was 8.8. As of yesterday, his white cell count was 15,800, hemoglobin 8.3, hematocrit 27, MCV 86 and platelet count of 331,000. ASSESSMENT: 1. Acute hypoxic respiratory failure, improved. He is now maintaining his oxygen saturation at 99% on 2 liters of oxygen by nasal cannula. 2. Acute on chronic kidney injury, improving. His creatinine came down from 3.4-1.7. 3. Anemia that is normochromic normocytic with a component of blood loss, some dilutional. His hemoglobin and hematocrit remained stable at 8.3 and 24. 4. He has chronic lymphatic leukemia. 5. He has bladder cancer with bilateral hydronephrosis, although according to Dr. Sanchez, his urologist there is no evidence of recurrence of the tumor, but lot of inflammatory changes in his bladder. 6. Pneumothorax that required chest tube placement and removal, while he was at [facility]. 7. Paroxysmal atrial fibrillation, currently rate controlled. He is not a candidate for oral anticoagulation. 8. Urinary retention, for which he had an indwelling Campos catheter. 9. The patient has bilateral lower lobe infiltrate and his blood and urine culture has grown pseudomonas that is sensitive to multiple antibiotics. 10. The patient has [id number]-XY-gzvyyer elevation myocardial infarction, felt to be either type 2 demand ischemia versus type 1; however, type 1 cannot be ruled out. PLAN: My plan is to discharge him to retirement facility on cefepime 500 mg IV daily for 10 days together with all other medication. His son will be informed of this decision and he can appeal the decision, but medically the patient is stable and he should be able to discharge to a retirement facility of their choice or to go on hospice. EVA MCDERMOTT: Jaswant TID: [id number]
--- NOTE | 2021-07-01 12:32 | NUR ---
SS following up with discharge planning. SS reviewed pt chart and discussed with pt RN. Pt is currently requiring oxygen at two liters nasal canula. COVID19 negative. Pt on IV Zosyn. PT/OT recommended prison unit. Discharge order on the chart. [facility] reported that they had no beds available at this time. [facility] declined pt clinically. Dr. Drummond left voicemail for pt's son stating that pt is medically stable and needs to return to [facility], ; fax [phone], until bed can be found at other facility. SS phoned and faxed clinical updates and discharge orders to [facility]. Per Tosha, [facility] is reviewing paperwork and insurance authorization would need to be obtained prior to readmission to [facility]. Tosha at [facility] to updates SS further. SS discussed with pt's son. Pt's son requested that SS try three more facilities. [facility], [facility], and [facility]. Pt's son wanting prison to LTC. [facility] reported that they do not have prison unit and only have independent living and assisted living. SS left voicemail for [facility]. SS phoned and faxed referral to [facility] again and communicated with [facility] in admissions. Pt's son requested referral to [facility]. Pt's son notified that pt has [employer] insurance and [facility] does not have a contract with [facility] and has no LTC beds available at this time. Pt's RN notified. Packet on chart. SS will continue to follow for discharge planning. Addendum: 07/01/21 at 1543 by BRANDI VENCES SS Sundar Bob contacted SS and reported that they are not in network with pt's insurance. Pt declined at [facility]. SS contacted pt's son and pt's son agreeable to return to [facility] at this time. Insurance authorization pending for return to prison unit at [facility]. Pt's son did request that SS phone and faxed referrals to [facility], [facility], [facility], [facility] [place], [place], and [facility] and rehabilitation. Referrals phoned and faxed as requested.
[2021-07-01 14:59] VITALS: BP 177/87
--- NOTE | 2021-07-01 17:29 | PDOC ---
PROGRESS NOTES Date of Service DATE: 07/01/21 TIME: 17:26 Subjective Subjective Patient seen and examined Objective Objective Vital Signs Date Time Temp Pulse Resp B/P (MAP) Pulse Ox O2 Delivery O2 Flow Rate FiO2 07/01/21 14:59 98.1 76 24 177/87 (117) 98 Nasal Cannula 2.0 98.1 Intake and Output 07/01/21 07:00 Intake Total 1055 ml Output Total 1800 ml Balance -745 ml Intake Oral 1055 ml Output Urine Total 1800 ml Physical Exam Abdomen: Normal bowel sounds Heart: Regular rate General: No acute distress Lungs: Other (Minimally decreased breath sounds) Assessment Assessment Problems Medical Problems: (1) Leukocytosis Status: Acute (2) Respiratory failure Status: Acute (3) Urinary tract infection Status: Acute Acute respiratory failure, multifactorial. Continues slow improvement. SARAH; Cr better NSTEMI; trop peak 1084. Possibly type II, demand ischemia in setting of above. CP free. Heparin discontinued due to anemia. Continue other present treatment. S/p recent cardiac arrest at [facility]. CAD s/p CABG 2019 at [facility] Acute on chronic systolic CHF; Echo 12/29 with LVEF 45%. appears compensated Hypertension; fair control. Continuing to monitor. Hyperlipidemia; statin PAFIB; not on OAC due to h/o GIB. presently SR/SB. Holding beta-blockers. CLL UTI, urinary retention. US with bilateral hydronephrosis Bacteremia; BC with GNR . Antibiotics as per ID. H/o bladder CA Comment Review of Relevant I have reviewed the following items [place] (where applicable) has been applied. Labs Laboratory Tests Test 06/30/21 09:50 07/01/21 05:00 White Blood Count 15.8 x10^3/uL (4.0-11.0) Red Blood Count 3.18 x10^6/uL (4.30-5.70) Hemoglobin 8.3 g/dL (13.0-17.5) Hematocrit 27.3 % (39.0-53.0) Mean Corpuscular Volume 86 fL (79-100) Mean Corpuscular Hemoglobin 26 pg (25-35) Mean Corpuscular Hemoglobin Concent 30 g/dL (31-37) Red Cell Distribution Width 18.1 % (11.5-14.5) Platelet Count 331 x10^3/uL (140-400) Sodium Level 144 mmol/L (136-145) 146 mmol/L (136-145) Potassium Level 4.6 mmol/L (3.5-5.1) 4.6 mmol/L (3.5-5.1) Chloride Level 108 mmol/L (98-107) 108 mmol/L (98-107) Carbon Dioxide Level 30 mmol/L (21-32) 31 mmol/L (21-32) Anion Gap 6 (6-14) 7 (6-14) Blood Urea Nitrogen 38 mg/dL (8-26) 35 mg/dL (8-26) Creatinine 1.6 mg/dL (0.7-1.3) 1.7 mg/dL (0.7-1.3) Estimated GFR (Cockcroft-Gault) 41.4 38.6 Glucose Level 91 mg/dL (70-99) 89 mg/dL (70-99) Calcium Level 8.6 mg/dL (8.5-10.1) 8.8 mg/dL (8.5-10.1) Laboratory Tests Test 07/01/21 05:00 Sodium Level 146 mmol/L (136-145) Potassium Level 4.6 mmol/L (3.5-5.1) Chloride Level 108 mmol/L (98-107) Carbon Dioxide Level 31 mmol/L (21-32) Anion Gap 7 (6-14) Blood Urea Nitrogen 35 mg/dL (8-26) Creatinine 1.7 mg/dL (0.7-1.3) Estimated GFR (Cockcroft-Gault) 38.6 Glucose Level 89 mg/dL (70-99) Calcium Level 8.8 mg/dL (8.5-10.1) Microbiology 06/24/21 Urine Culture - Final, Complete 06/24/21 Antimicrobic Susceptibility - Final, Complete 06/24/21 Blood Culture - Final, Complete 06/24/21 Antimicrobic Susceptibility - Final, Complete Medications Current Medications Hydromorphone HCl (Dilaudid) 1 mg 1X ONCE IVP Last administered on 06/24/21at 23:40; Start 06/24/21 at 23:30; Stop 06/24/21 at 23:31; Status DC Sodium Chloride 1,000 ml @ 125 mls/hr 1X ONCE IV Last administered on 06/25/21at 00:15; Start 06/25/21 at 00:15; Stop 06/25/21 at 08:14; Status DC Fentanyl Citrate (Fentanyl 2ml Vial) 50 mcg PRN Q1HR PRN IVP PAIN; Start 06/25/21 at 00:15; Stop 06/26/21 at 00:14; Status DC Ceftriaxone Sodium (Rocephin) 1 gm 1X ONCE IVP Last administered on 06/25/21at 02:19; Start 06/25/21 at 01:45; Stop 06/25/21 at 01:46; Status DC Aspirin (Aspirin Chewable) 324 mg 1X ONCE PO Last administered on 06/25/21at 02:43; Start 06/25/21 at 01:45; Stop 06/25/21 at 02:36; Status DC Heparin Sodium/ Dextrose 250 ml @ 9.852 mls/ hr CONT PRN IV PER PROTOCOL Last administered on 06/25/21at 22:23; Start 06/25/21 at 01:45; Stop 06/26/21 at 12:46; Status DC Heparin Sodium (Porcine) (Heparin Sodium) 2,050 unit PRN Q6HRS PRN IV FOR UFH LEVEL LESS THAN 0.2 Last administered on 06/26/21at 02:00; Start 06/25/21 at 01:45; Stop 06/26/21 at 12:47; Status DC Info (FLU VACCINE SCREEN per RX) 1 each 1X ONCE MC ; Start 06/25/21 at 03:15; Stop 06/25/21 at 03:16; Status UNV Pharmacy Consult (C.diff Med Screen By Rx) 1 each 1X ONCE MC ; Start 06/25/21 at 03:15; Stop 06/25/21 at 03:16; Status Cancel Influenza Virus Vaccine Quadrival (Flulaval Quad [id number] Syringe) 0.5 ml ONCE ONCE VAX IM ; Start 06/25/21 at 09:00; Stop 06/25/21 at 09:01; Status DC Lactobacillus Rhamnosus (Culturelle) 1 cap BID PO Last administered on 07/01/21at 10:41; Start 06/25/21 at 09:00 Acetaminophen (Tylenol) 1,000 mg PRN Q6HRS PRN PO MILD PAIN, TEMP Last administered on 06/26/21at 16:39; Start 06/25/21 at 09:00 Vitamin D (Vitamin D3) 1,000 unit DAILY PO Last administered on 07/01/21at 10:41; Start 06/25/21 at 09:00 Senna/Docusate Sodium (Senna Plus) 1 tab PRN BID PRN PO CONSTIPATION Last administered on 06/26/21at 20:09; Start 06/25/21 at 09:00 Tamsulosin HCl (Flomax) 0.4 mg DAILY PO Last administered on 07/01/21at 10:41; Start 06/25/21 at 09:00 Tramadol HCl (Ultram) 50 mg PRN BID PRN PO MODERATE PAIN Last administered on 06/26/21at 12:08; Start 06/25/21 at 09:00; Stop 06/26/21 at 12:19; Status DC Multivitamins (Thera M Plus) 1 tab DAILY PO Last administered on 07/01/21at 10:41; Start 06/25/21 at 09:00 Polyethylene Glycol (miraLAX PACKET) 17 gm PRN DAILY PRN PO CONSTIPATION, 1ST CHOICE; Start 06/25/21 at 09:00 Atorvastatin Calcium (Lipitor) 80 mg QHS PO Last administered on 06/30/21at 20:58; Start 06/25/21 at 21:00 Tramadol HCl (Ultram) 100 mg PRN QHS PRN PO PAIN; Start 06/25/21 at 21:00; Stop 06/26/21 at 12:19; Status DC Piperacillin Sod/ Tazobactam Sod (Zosyn Per Pharmacy) 1 each PRN DAILY PRN MC SEE COMMENTS; Start 06/25/21 at 09:00 Piperacillin Sod/ Tazobactam Sod 2.25 gm/Sodium Chloride 50 ml @ 100 mls/hr Q8HRS IV Last administered on 06/26/21at 13:33; Start 06/25/21 at 09:00; Stop 06/26/21 at 13:58; Status DC Tramadol HCl (Ultram) 100 mg HS PO Last administered on 06/30/21at 21:01; Start 06/26/21 at 21:00 Tramadol HCl (Ultram) 50 mg [id number] PO Last administered on 06/27/21at 08:16; Start 06/27/21 at 09:00; Stop 06/27/21 at 09:43; Status DC Enoxaparin Sodium (Lovenox Per Pharmacy Prophylaxis Dosing) 1 each PRN DAILY PRN MC SEE COMMENTS; Start 06/26/21 at 12:45 Enoxaparin Sodium (Lovenox 30mg Syringe) 30 mg Q24H SQ Last administered on 06/30/21at 09:22; Start 06/27/21 at 09:00; Stop 06/30/21 at 12:57; Status DC Piperacillin Sod/ Tazobactam Sod 2.25 gm/Sodium Chloride 50 ml @ 100 mls/hr Q6HRS IV ; Start 06/26/21 at 18:00; Stop 06/26/21 at 13:59; Status DC Piperacillin Sod/ Tazobactam Sod 3.375 gm/Sodium Chloride 50 ml @ 100 mls/hr Q6HRS IV Last administered on 06/27/21at 05:25; Start 06/26/21 at 18:00; Stop 06/27/21 at 09:16; Status DC Piperacillin Sod/ Tazobactam Sod 3.375 gm/Sodium Chloride 50 ml @ 100 mls/hr Q8HRS IV ; Start 06/27/21 at 09:15; Status UNV Piperacillin Sod/ Tazobactam Sod 2.25 gm/Sodium Chloride 50 ml @ 100 mls/hr Q6HRS IV ; Start 06/27/21 at 12:00; Status Cancel Tramadol HCl (Ultram) 50 mg Q4HRS PO Last administered on 07/01/21at 10:45; Start 06/27/21 at 12:00 Piperacillin Sod/ Tazobactam Sod 3.375 gm/Sodium Chloride 50 ml @ 100 mls/hr Q6HRS IV Last administered on 06/30/21at 12:11; Start 06/27/21 at 12:00; Stop 06/30/21 at 12:59; Status DC Aspirin (Ecotrin) 81 mg [id number] PO Last administered on 07/01/21at 10:41; Start 06/27/21 at 16:00 Cyclobenzaprine HCl (Flexeril) 5 mg PRN QHS PRN PO MUSCLE SPASMS Last administered on 06/27/21at 22:47; Start 06/27/21 at 20:00 Enoxaparin Sodium (Lovenox 40mg Syringe) 40 mg DAILY SQ Last administered on 07/01/21at 10:41; Start 07/01/21 at 09:00 Piperacillin Sod/ Tazobactam Sod 4.5 gm/Sodium Chloride 100 ml @ 200 mls/hr Q6HRS IV Last administered on 07/01/21at 12:01; Start 06/30/21 at 18:00 Active Scripts Active Cefepime HCl 100 Gm Bulkbaginj 0.5 Gm IV DAILY 10 Days Tramadol Hcl Er (Tramadol Hcl) 100 Mg Tab.er.24h 1 Tab PO QHS PRN MDD 1 Tablet(s) 30 Days Tramadol Hcl 50 Mg Tablet 50 Mg PO BID Reported Sennosides-Docusate Sodium Tab (Sennosides/Docusate Sodium) 1 Each Tablet 1 Each PO PRN BID PRN Crestor (Rosuvastatin Calcium) 40 Mg Tablet 20 Mg PO HS Polyethylene Glycol 3350 2,500 Gm Powder 17 Gm PO PRN DAILY PRN 30 Days Multi Vitamin Daily (Multivitamin) 1 Each Tablet 1 Tab PO DAILY 30 Days Cidaflex Tablet (Glucosamine Hcl/Chondr [place] A Na) 1 Each Tablet 1 Tab PO BID 30 Days Flomax (Tamsulosin Hcl) 0.4 Mg Cap.er.24h 0.4 Mg PO DAILY Vitamin D3 (Vitamin D) 25 Mcg Tablet 25 Mcg PO DAILY 1,000 UNITS = 25 MCG Acetaminophen 500 Mg Tablet 2 Tab PO PRN Q6HRS PRN 15 Days Vitals/I & O Vital Sign - Last 24 Hours 06/30/21 06/30/21 06/30/21 06/30/21 19:00 20:10 21:01 21:31 Temp 97.6 97.6 Pulse 76 Resp 16 18 18 B/P (MAP) 170/64 (99) Pulse Ox 95 98 O2 Delivery Nasal Cannula Nasal Cannula Nasal Cannula O2 Flow Rate 2.0 2.0 2.0 06/30/21 07/01/21 07/01/21 07/01/21 22:49 02:38 07:00 08:00 Temp 97.7 97.6 98.0 97.7 97.6 98.0 Pulse 65 91 88 Resp 16 18 20 B/P (MAP) 155/62 (93) 150/69 (96) 165/61 (95) Pulse Ox 98 99 59 O2 Delivery Nasal Cannula Nasal Cannula Nasal Cannula Nasal Cannula O2 Flow Rate 2.0 2.0 2.0 2.0 07/01/21 07/01/21 07/01/21 07/01/21 10:45 10:45 11:15 14:59 Temp 98.3 98.1 98.3 98.1 Pulse 66 76 Resp 20 24 B/P (MAP) 150/65 (93) 177/87 (117) Pulse Ox 100 98 O2 Delivery Nasal Cannula Nasal Cannula Nasal Cannula Nasal Cannula O2 Flow Rate 2.0 2.0 2.0 2.0 Intake and Output 06/30/21 06/30/21 07/01/21 15:00 23:00 07:00 Intake Total 515 ml 440 ml 100 ml Output Total 800 ml 1000 ml Balance 515 ml -360 ml -900 ml Justifications for Admission Other Justification Nutrition Consultation Dietary Evaluation: Recommendations by RD: Dietary education by RD, Increase Calorie Intake, Protein supplementation Comments: REC continue regular diet with oral nutritional supplements REC vit c Expected Outcomes/Goals: to meet >75% est nutr needs improved wound healing Malnutrition Findings: Food and Nutrition Intake (Mod: <75% est energy req 7days Body Fat Depletion (Non Severe: Mild Depletion Weight Status: Appropriate HIRA BEST MD Jul 01, 2021 17:29
[2021-07-01 19:55] VITALS: BP 167/83
[2021-07-01] MEDS: ATORVASTATIN CALCIUM 40 MG TABLET. PO SCH (21:22)
[2021-07-01 23:10] VITALS: BP 164/79
[2021-07-02 03:05] VITALS: BP 155/74
[2021-07-02 05:12] LABS: CALCIUM 8.7 mg/dL (8.5-10.1); CREATININE 1.6 mg/dL (0.7-1.3); GFR 41.4; POTASSIUM 4.2 mmol/L (3.5-5.1)
[2021-07-02] MEDS: PIPERACILLIN/TAZOBACTAM 4.5 GM in IV NORMAL SALINE 100ML 100 ML IV SCH ×4 (05:42→23:39)
[2021-07-02] MEDS: traMADol 50 MG TABLET PO SCH ×5 (05:42→20:40)
[2021-07-02 07:00] VITALS: BP 160/80
[2021-07-02] MEDS: ASPIRIN ENTERIC COATED 81 MG TABLET.DR. PO SCH (08:13)
[2021-07-02] MEDS: MULTIVITAMIN with MINERAL TABLET. PO SCH (08:13)
[2021-07-02] MEDS: CHOLECALCIFEROL (VITAMIN D3) 1,000 UNIT TABLET PO SCH (08:14)
[2021-07-02] MEDS: ENOXAPARIN 40 MG/0.4 ML SYRINGE. SQ SCH (08:14)
[2021-07-02] MEDS: LACTOBACILLUS RHAMNOSUS GG 1 CAPSULE. PO SCH ×2 (08:14→20:40)
[2021-07-02] MEDS: TAMSULOSIN 0.4 MG CAP.ER.24H. PO SCH (08:14)
--- NOTE | 2021-07-02 10:52 | PDOC ---
Infectious Disease Note Subjective Subjective Patient is feeling better very weak and unable to do much anything ROS ROS No nausea vomiting diarrhea chest pain shortness of breath Vital Sign Vital Signs Vital Signs Date Time Temp Pulse Resp B/P (MAP) Pulse Ox O2 Delivery O2 Flow Rate FiO2 07/02/21 08:43 20 98 Nasal Cannula 2.0 07/02/21 07:00 98.1 77 160/80 (106) 98.1 Physical Exam PHYSICAL EXAM GENERAL: Alert, oriented gentleman, not in distress. VITAL SIGNS: Stable. HEENT: Both pupils are round and reacting. No conjunctival lesion. No lesion in the mouth. NECK: Supple. No JVP, no lymphadenopathy. LUNGS: Clear. HEART: S1, S2 regular. ABDOMEN: Soft, nontender. No organomegaly. EXTREMITIES: No edema, cyanosis. SKIN: Unremarkable except he has a stage 2 decubitus on the sacrococcygeal area. Labs Lab Laboratory Tests Test 07/02/21 03:45 Sodium Level 145 mmol/L (136-145) Potassium Level 4.2 mmol/L (3.5-5.1) Chloride Level 108 mmol/L (98-107) Carbon Dioxide Level 28 mmol/L (21-32) Anion Gap 9 (6-14) Blood Urea Nitrogen 30 mg/dL (8-26) Creatinine 1.6 mg/dL (0.7-1.3) Estimated GFR (Cockcroft-Gault) 41.4 Glucose Level 69 mg/dL (70-99) Calcium Level 8.7 mg/dL (8.5-10.1) Micro Pseudomonas UTI and Pseudomonas bacteremia Objective Assessment IMPRESSION: 1. Sepsis from pseudomonas bacteremia. 2. Urinary tract infection with sepsis. 3. Encephalopathy. 4. Renal insufficiency. 5. Urinary retention with hydronephrosis. 6. Leukocytosis. Plan Plan of Care Okay to discharge on IV cefepime through midline for total 2 weeks PT OT Waiting for placement VIMAL SAGE MD Jul 02, 2021 10:52
[2021-07-02 11:04] VITALS: BP 140/61
--- NOTE | 2021-07-02 13:09 | PN ---
DATE: 07/02/2021 SUBJECTIVE: The patient is sitting at the edge of the bed comfortably, in no apparent respiratory distress. On questioning him, he denied any complaint, in particular, denied any chest pain or shortness of breath. PHYSICAL EXAMINATION: GENERAL: When I examined him, he was pale, but no jaundice, cyanosis, no lymphadenopathy, no thyromegaly, no jugular venous distention. No limb edema. VITAL SIGNS: His heart rate was 61, blood pressure 140/61, temperature 97.9, respiratory rate was 18 and oxygen saturation was 100% on 2 liters of oxygen. HEAD, EYES, EARS, NOSE, AND THROAT: Showed he is normocephalic, atraumatic. NECK: Supple. HEART: Normal first and second heart sounds, no gallop or murmur. CHEST: Clear to auscultation. No crepitation or rhonchi. ABDOMEN: Distended, soft, nontender. NEUROLOGIC: He is definitely more awake, alert, responding appropriately. All his cranial nerves intact. He moves extremities without difficulty, although he is mostly bedbound. He is able now to sit on the edge of the bed, unassisted. He has an indwelling Campos catheter. His intake over the last 24 hours was 1050, output was 1800. LABORATORY DATA: As of this morning, his serum sodium was 145, potassium 4.2, chloride 108, bicarbonate 28, anion gap of 9, BUN 30, creatinine 1.6. Estimated GFR was 41 mL per minute. His glucose was 69 and calcium was 8.7. ASSESSMENT: 1. Acute hypoxic respiratory failure, improved. He is now maintaining his oxygen saturation at 99% on 2 liters of oxygen by nasal cannula. 2. Acute on chronic kidney injury, improving. His creatinine is down from 3.4-1.63. 3. Anemia that is normochromic normocytic with a component of blood loss. His hemoglobin and hematocrit stabilized around 8 and 24. 4. He has chronic lymphatic leukemia. 5. He has bladder cancer, bilateral hydronephrosis, although according to Dr. Sanchez, his urologist. There is no evidence of recurrence of the tumor, but also inflammatory changes in his brother. 6. Pneumothorax that required chest tube placement and removal, while he was at [facility]. 7. Paroxysmal atrial fibrillation, currently rate controlled. He is not a candidate for oral anticoagulation. 8. Urinary retention for which he has an indwelling Campos catheter. His urologist recommended that he should keep the catheter indefinitely. 9. He has bilateral lower lobe infiltrate. His blood and urine culture has grown pseudomonas that is sensitive to multiple antibiotics. He is now on cefepime 500 mg IV daily. 10. The patient has non-ST segment elevation myocardial infarction, felt to be secondary to type 2 demand ischemia. PLAN: To continue with IV antibiotic. Continue with physical and occupational therapy. Continue with pain management. We are waiting for the insurance authorization for him to be discharged to a [facility] facility. NICOL DR: Jaswant TID: [id number]
[2021-07-02 15:41] VITALS: BP 153/64
[2021-07-02] MEDS: traMADol 50 MG TABLET PO PRN (17:33)
[2021-07-02 19:05] VITALS: BP 177/73
[2021-07-02] MEDS: ATORVASTATIN CALCIUM 40 MG TABLET. PO SCH (20:40)
[2021-07-02 22:45] VITALS: BP 161/78
[2021-07-03 03:05] VITALS: BP 167/63
[2021-07-03 05:18] LABS: CALCIUM 8.5 mg/dL (8.5-10.1); CREATININE 1.9 mg/dL (0.7-1.3); GFR 33.9; POTASSIUM 4.2 mmol/L (3.5-5.1)
[2021-07-03] MEDS: PIPERACILLIN/TAZOBACTAM 4.5 GM in IV NORMAL SALINE 100ML 100 ML IV SCH ×4 (05:43→23:02)
[2021-07-03 06:49] VITALS: BP 153/63
[2021-07-03] MEDS: ASPIRIN ENTERIC COATED 81 MG TABLET.DR. PO SCH (09:24)
[2021-07-03] MEDS: traMADol 50 MG TABLET PO PRN ×3 (09:24→17:22)
[2021-07-03] MEDS: MULTIVITAMIN with MINERAL TABLET. PO SCH (09:24)
[2021-07-03] MEDS: ENOXAPARIN 40 MG/0.4 ML SYRINGE. SQ SCH (09:24)
[2021-07-03] MEDS: LACTOBACILLUS RHAMNOSUS GG 1 CAPSULE. PO SCH ×2 (09:24→20:37)
[2021-07-03] MEDS: CHOLECALCIFEROL (VITAMIN D3) 1,000 UNIT TABLET PO SCH (09:24)
[2021-07-03] MEDS: TAMSULOSIN 0.4 MG CAP.ER.24H. PO SCH (09:24)
--- NOTE | 2021-07-03 10:44 | PN ---
DATE: 07/03/2021 SUBJECTIVE: The patient is sitting slightly propped up in bed, eating his breakfast comfortably, in no apparent distress. On questioning him, he denied any complaint. Nursing staff did not voice any concerns. The patient stated he managed to walk for a short distance yesterday. Denied any complaint. PHYSICAL EXAMINATION: GENERAL: When I examined him, he was pale, but no jaundice, cyanosis or thyromegaly. No jugular venous distention. No limb edema. VITAL SIGNS: His heart rate was 73, blood pressure 153/63, his temperature was 97.8, respiratory rate 21, and oxygen saturation was 98% on 2 liters of oxygen. HEAD, EYES, EARS, NOSE, AND THROAT: Normocephalic, atraumatic. NECK: Supple. HEART: Normal first and second heart sounds, no gallop or murmur. CHEST: Clear to auscultation, no crepitation or rhonchi. ABDOMEN: Distended, soft, nontender. NEUROLOGIC: He is definitely more awake, alert, responding appropriately. All cranial nerves intact. He moves extremities without difficulty. He has an indwelling Campos catheter. His intake over the last 24 hours was 700, output was 1400. LABORATORY DATA: As of this morning, his white cell count was 15,800, hemoglobin 8.3, hematocrit 27, MCV 86 and platelet count 331,000. His chemistry showed a serum sodium 143, potassium 4.2, chloride 107, bicarbonate 30, anion gap of 6, BUN 30, creatinine 1.9. Estimated GFR was 33 mL per minute. His glucose was 90 and calcium was 8.5. ASSESSMENT: 1. Acute hypoxic respiratory failure, improved. He is now maintaining his oxygen saturation at 99% on 2 liters of oxygen by nasal cannula. 2. Acute on chronic kidney injury, improved. His creatinine is down from 3.4 to 1.9. 3. Anemia that is normochromic normocytic with a component of blood loss. His hemoglobin and hematocrit stabilized around 8 and 24. 4. He has chronic lymphatic leukemia. 5. He has bladder cancer with bilateral hydronephrosis, although according to Dr. Sanchez, his urologist, there is no evidence of recurrence of the tumor, but there are also lots of inflammatory changes in his bladder. 6. Pneumothorax that required chest tube placement while he was at [facility]. 7. Paroxysmal atrial fibrillation, currently rate controlled. He is not on anticoagulation as he is not a candidate for oral anticoagulation given his hematuria. 8. Urinary retention for which he has an indwelling Campos catheter. His urologist recommended that he keeps his catheter indefinitely. 9. He has bilateral lower lobe infiltrates and urine culture has grown Pseudomonas aeruginosa that is sensitive to multiple antibiotics. He is now on cefepime 500 mg IV daily. 10. The patient has non-ST segment elevation myocardial infarction, likely due to type 2 demand ischemia. PLAN: Continue with IV antibiotic. Continue with IV dexamethasone. Continue with pain management. Continue with physical and occupational therapy. Await placement in a longterm facility, hopefully tomorrow. NICOL DR: Jaswant TID: [id number]
[2021-07-03 11:00] VITALS: BP 153/70
[2021-07-03 15:00] VITALS: BP 155/77
[2021-07-03 19:40] VITALS: BP 174/91
[2021-07-03] MEDS: ATORVASTATIN CALCIUM 40 MG TABLET. PO SCH (20:38)
[2021-07-03] MEDS: traMADol 50 MG TABLET PO SCH (20:38)
[2021-07-03 22:59] VITALS: BP 162/77
[2021-07-03] MEDS: CYCLOBENZAPRINE 10 MG TABLET. PO PRN (23:36)
[2021-07-04 03:15] VITALS: BP 169/78
[2021-07-04 04:42] LABS: HEMATOCRIT 24.8 % (39.0-53.0); HEMOGLOBIN 7.5 g/dL (13.0-17.5); RED BLOOD COUNT 2.88 x10^6/uL (4.30-5.70); RED CELL DISTRIBUTION WIDTH 17.8 % (11.5-14.5); WHITE BLOOD COUNT 16.9 x10^3/uL (4.0-11.0)
[2021-07-04 05:11] LABS: ALBUMIN/GLOBULIN RATIO 0.6 (1.0-1.7); CALCIUM 8.5 mg/dL (8.5-10.1); CREATININE 1.7 mg/dL (0.7-1.3); GFR 38.6; POTASSIUM 3.8 mmol/L (3.5-5.1); TOTAL BILIRUBIN 0.2 mg/dL (0.2-1.0); TOTAL PROTEIN 5.3 g/dL (6.4-8.2)
[2021-07-04] MEDS: PIPERACILLIN/TAZOBACTAM 4.5 GM in IV NORMAL SALINE 100ML 100 ML IV SCH ×2 (06:32→14:37)
[2021-07-04 07:00] VITALS: BP 149/79
--- NOTE | 2021-07-04 07:45 | PDOC ---
Infectious Disease Note Subjective: Subjective Patient feels a little better today Denies any fever, nausea, vomiting, diarrhea Still feels weak Vital Signs: Vital Signs Vital Signs Date Time Temp Pulse Resp B/P (MAP) Pulse Ox O2 Delivery O2 Flow Rate FiO2 07/04/21 03:15 98.4 77 18 169/78 (108) 97 Nasal Cannula 2.0 98.4 Physical Exam: PHYSICAL EXAM GENERAL: Alert, oriented gentleman, not in distress. VITAL SIGNS: Stable. HEENT: Both pupils are round and reacting. No conjunctival lesion. No lesion in the mouth. NECK: Supple. No JVP, no lymphadenopathy. LUNGS: Clear. HEART: S1, S2 regular. ABDOMEN: Soft, nontender. No organomegaly. EXTREMITIES: No edema, cyanosis. SKIN: Unremarkable except he has a stage 2 decubitus on the sacrococcygeal area. Medications: Inpatient Meds: Medications reviewed. Labs: Lab Laboratory Tests Test 07/04/21 04:30 White Blood Count 16.9 x10^3/uL (4.0-11.0) Red Blood Count 2.88 x10^6/uL (4.30-5.70) Hemoglobin 7.5 g/dL (13.0-17.5) Hematocrit 24.8 % (39.0-53.0) Mean Corpuscular Volume 86 fL (79-100) Mean Corpuscular Hemoglobin 26 pg (25-35) Mean Corpuscular Hemoglobin Concent 30 g/dL (31-37) Red Cell Distribution Width 17.8 % (11.5-14.5) Platelet Count 301 x10^3/uL (140-400) Sodium Level 144 mmol/L (136-145) Potassium Level 3.8 mmol/L (3.5-5.1) Chloride Level 107 mmol/L (98-107) Carbon Dioxide Level 30 mmol/L (21-32) Anion Gap 7 (6-14) Blood Urea Nitrogen 24 mg/dL (8-26) Creatinine 1.7 mg/dL (0.7-1.3) Estimated GFR (Cockcroft-Gault) 38.6 BUN/Creatinine Ratio 14 (6-20) Glucose Level 91 mg/dL (70-99) Calcium Level 8.5 mg/dL (8.5-10.1) Total Bilirubin 0.2 mg/dL (0.2-1.0) Aspartate Amino Transf (AST/SGOT) 19 U/L (15-37) Alanine Aminotransferase (ALT/SGPT) 25 U/L (16-63) Alkaline Phosphatase 103 U/L (46-116) Total Protein 5.3 g/dL (6.4-8.2) Albumin 2.0 g/dL (3.4-5.0) Albumin/Globulin Ratio 0.6 (1.0-1.7) Objective: Assessment: 1. Sepsis from pseudomonas bacteremia. 2. Urinary tract infection with sepsis. 3. Encephalopathy. 4. Renal insufficiency. 5. H/O Bladder CA with Urinary retention with hydronephrosis. 6. Leukocytosis. Plan: Plan of Care Continue Zosyn When ready for discharge transition to cefepime for 2 weeks Patient will need follow-up with urology Urinary catheter management per urology Monitor labs Continue supportive care CONSUELO SAGE MD Jul 04, 2021 07:45
[2021-07-04] MEDS: LACTOBACILLUS RHAMNOSUS GG 1 CAPSULE. PO SCH (08:47)
[2021-07-04] MEDS: ASPIRIN ENTERIC COATED 81 MG TABLET.DR. PO SCH (08:47)
[2021-07-04] MEDS: TAMSULOSIN 0.4 MG CAP.ER.24H. PO SCH (08:47)
[2021-07-04] MEDS: MULTIVITAMIN with MINERAL TABLET. PO SCH (08:47)
[2021-07-04] MEDS: CHOLECALCIFEROL (VITAMIN D3) 1,000 UNIT TABLET PO SCH (08:47)
[2021-07-04] MEDS: ENOXAPARIN 40 MG/0.4 ML SYRINGE. SQ SCH (08:48)
--- NOTE | 2021-07-04 10:22 | NUR ---
SS following up with discharge planning. SS reviewed pt chart and discussed with pt RN. Pt is currently requiring oxygen at two liters nasal canula. COVID19 negative. Pt on IV Zosyn. PT/OT recommended intermediate unit. Order for mid line placement put in today as pt will need IV antibiotics post discharge. [facility] contacted and notified that they were unable to submit for insurance authorization because another facility already did. contacted other facilities and was notified that pt was accepted at [facility]. [phone]; fax [phone], and they submitted for insurance authorization late Sunday afternoon. Discharge orders phoned and faxed to [facility]. SS currently awaiting insurance approval at this time and will continue to follow for discharge planning. Addendum: 07/04/21 at 1057 by BRANDI VENCES [facility] contacted and reported that insurance authorization has been received. Pt will discharge today and go to [facility] at 1600. Pt, pt's RN, and pt's son notified. Packet placed on chart.
--- NOTE | 2021-07-04 10:44 | PDOC ---
JONATHAN SALAZAR INFORMATION ASSURANCE SPECIALIST 07/04/21 1044: CARDIO Progress Notes Date and Time Date of Service 07/04/21 Time of Evaluation 1040 Subjective Subjective: No Chest Pain, No shortness of breath, No Palpitations, No Dizziness Vitals Vitals Vital Signs Date Time Temp Pulse Resp B/P (MAP) Pulse Ox O2 Delivery O2 Flow Rate FiO2 07/04/21 08:00 Nasal Cannula 2.0 07/04/21 07:00 97.8 81 18 149/79 (102) 95 97.8 Weight Weight [ ] Input and Output Intake and Output Intake and Output 07/04/21 07:00 Intake Total 640 ml Output Total 2100 ml Balance -1460 ml Intake Oral 640 ml Output Urine Total 2100 ml # Bowel Movements 1 Laboratory Labs Laboratory Tests Test 07/04/21 04:30 White Blood Count 16.9 x10^3/uL (4.0-11.0) Red Blood Count 2.88 x10^6/uL (4.30-5.70) Hemoglobin 7.5 g/dL (13.0-17.5) Hematocrit 24.8 % (39.0-53.0) Mean Corpuscular Volume 86 fL (79-100) Mean Corpuscular Hemoglobin 26 pg (25-35) Mean Corpuscular Hemoglobin Concent 30 g/dL (31-37) Red Cell Distribution Width 17.8 % (11.5-14.5) Platelet Count 301 x10^3/uL (140-400) Sodium Level 144 mmol/L (136-145) Potassium Level 3.8 mmol/L (3.5-5.1) Chloride Level 107 mmol/L (98-107) Carbon Dioxide Level 30 mmol/L (21-32) Anion Gap 7 (6-14) Blood Urea Nitrogen 24 mg/dL (8-26) Creatinine 1.7 mg/dL (0.7-1.3) Estimated GFR (Cockcroft-Gault) 38.6 BUN/Creatinine Ratio 14 (6-20) Glucose Level 91 mg/dL (70-99) Calcium Level 8.5 mg/dL (8.5-10.1) Total Bilirubin 0.2 mg/dL (0.2-1.0) Aspartate Amino Transf (AST/SGOT) 19 U/L (15-37) Alanine Aminotransferase (ALT/SGPT) 25 U/L (16-63) Alkaline Phosphatase 103 U/L (46-116) Total Protein 5.3 g/dL (6.4-8.2) Albumin 2.0 g/dL (3.4-5.0) Albumin/Globulin Ratio 0.6 (1.0-1.7) Microbiology Micro Microbiology 06/24/21 Urine Culture - Final, Complete 06/24/21 Antimicrobic Susceptibility - Final, Complete 06/24/21 Blood Culture - Final, Complete 06/24/21 Antimicrobic Susceptibility - Final, Complete Physical Exam HEENT: Neck Supple W Full Motion Chest: Symmetric LUNGS: Other (diminished bases) Heart: RRR (SR/SB) Abdomen: Soft N/T Extremities: No Edema Neurology: alert, oriented, follow commands Assessment Assessment 1. Acute respiratory failure, multifactorial 2. SARAH; Cr better 3. NSTEMI; trop peak 1084. Possibly type II, demand ischemia in setting of above. CP free. 4. S/p recent cardiac arrest at [facility]. awaiting records 5. CAD s/p CABG 2018 at [facility] 6. Acute on chronic systolic CHF; Echo 12/29 with LVEF 45%. appears compensated 7. Hypertension; controlled 8. Hyperlipidemia; statin 9. PAFIB; not on OAC due to h/o GIB. presently SR/SB 10. CLL 11. UTI, urinary retention. US with bilateral hydronephrosis 12. Bacteremia; BC with GNR 13. H/o bladder CA Recommendations Secondary prevention No BB due to bradycardia No OAC due to anemia, h/o GIB Avoid nephrotoxins Supportive care Okay to discharge from a CV standpoint Justicifation of Admission Dx: Justifications for Admission: Justification of Admission Dx: Yes DE: Acute NSTEMI HIRA BEST MD 07/04/21 4166: CARDIO Progress Notes Assessment Assessment Patient seen and examined I agree with our nurse practitioners assessment and plan. Acute respiratory failure, multifactorial. Slowly improving. SARAH; Cr better NSTEMI; trop peak 1084. Possibly type II, demand ischemia in setting of above. CP free. S/p recent cardiac arrest at [facility] CAD s/p CABG 2018 at [facility] Acute on chronic systolic CHF; Echo 12/29 with LVEF 45%. appears compensated Hypertension; controlled Hyperlipidemia; statin PAFIB; not on OAC due to h/o GIB. presently SR/SB. Holding beta-blockers due to episodes of bradycardia. Holding anticoagulation due to anemia. CLL UTI, urinary retention. US with bilateral hydronephrosis Bacteremia; BC with GNR JONATHAN SALAZAR APRN Jul 04, 2021 10:44 HIRA BEST MD Jul 04, 2021 17:47
[2021-07-04 11:00] VITALS: BP 142/59
--- NOTE | 2021-07-04 12:11 | PDOC ---
Renal-Progress Notes Subjective Notes Notes NO NEW COMPLAINTS History of Present Illness Hx of present illness STABLE Vitals Vitals Vital Signs Date Time Temp Pulse Resp B/P (MAP) Pulse Ox O2 Delivery O2 Flow Rate FiO2 07/04/21 11:00 97.8 69 18 142/59 (86) 97 Nasal Cannula 2.0 97.8 Weight Weight [ ] I.O. Intake and Output Intake and Output 07/04/21 07:00 Intake Total 640 ml Output Total 2100 ml Balance -1460 ml Intake Oral 640 ml Output Urine Total 2100 ml # Bowel Movements 1 Labs Labs Laboratory Tests Test 07/04/21 04:30 White Blood Count 16.9 x10^3/uL (4.0-11.0) Red Blood Count 2.88 x10^6/uL (4.30-5.70) Hemoglobin 7.5 g/dL (13.0-17.5) Hematocrit 24.8 % (39.0-53.0) Mean Corpuscular Volume 86 fL (79-100) Mean Corpuscular Hemoglobin 26 pg (25-35) Mean Corpuscular Hemoglobin Concent 30 g/dL (31-37) Red Cell Distribution Width 17.8 % (11.5-14.5) Platelet Count 301 x10^3/uL (140-400) Sodium Level 144 mmol/L (136-145) Potassium Level 3.8 mmol/L (3.5-5.1) Chloride Level 107 mmol/L (98-107) Carbon Dioxide Level 30 mmol/L (21-32) Anion Gap 7 (6-14) Blood Urea Nitrogen 24 mg/dL (8-26) Creatinine 1.7 mg/dL (0.7-1.3) Estimated GFR (Cockcroft-Gault) 38.6 BUN/Creatinine Ratio 14 (6-20) Glucose Level 91 mg/dL (70-99) Calcium Level 8.5 mg/dL (8.5-10.1) Total Bilirubin 0.2 mg/dL (0.2-1.0) Aspartate Amino Transf (AST/SGOT) 19 U/L (15-37) Alanine Aminotransferase (ALT/SGPT) 25 U/L (16-63) Alkaline Phosphatase 103 U/L (46-116) Total Protein 5.3 g/dL (6.4-8.2) Albumin 2.0 g/dL (3.4-5.0) Albumin/Globulin Ratio 0.6 (1.0-1.7) Micro Micro Microbiology 06/24/21 Urine Culture - Final, Complete 06/24/21 Antimicrobic Susceptibility - Final, Complete 06/24/21 Blood Culture - Final, Complete 06/24/21 Antimicrobic Susceptibility - Final, Complete Review of Systems Constitutional: yes: other (CONFUSED) Physical Exam General Appearance: no apparent distress Skin: warm Respiratory: decreased breath sounds Heart: S1S2 Abdomen: soft Genitourinary: bladder flat Extremities: pulses present Neurology: alert, oriented, follow commands Assessment Assessment IMP [id number] 3.4 TO 1.7 CKD STAGE 3 B-CR STABLE AT 1.7 NSTEMI HX CAD HX HTN UTI/SEPSIS HX BLADDER CANCER HYDRONEPHROSIS-BILATERAL AND POSSIBLY CHRONIC-SARAH HAS RESOLVED WITH CORDON PLAN MAINTAIN CORDON D/W DR BURNETT UROLOGY NOTIFIED ANTIBIOTICS AWAITING PLACEMENT WILL FOLLOW BECCA PIZARRO MD Jul 04, 2021 12:11
--- NOTE | 2021-07-04 13:30 | NUR ---
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
--- NOTE | 2021-07-04 13:48 | PN ---
DATE: 07/04/2021 SUBJECTIVE: The patient is sitting up in his bed, eating his breakfast comfortably, in no apparent distress. On questioning him, he denied any complaint. Nursing staff did not voice any concern. PHYSICAL EXAMINATION: GENERAL: When I examined him, he was pale, not jaundiced or cyanosed, no lymphadenopathy, no thyromegaly, no jugular venous distention. No limb edema. VITAL SIGNS: His heart rate was 81, blood pressure was 149/79, temperature was 97.8, respiratory rate was 18 and oxygen saturation was 95% on 2 liters of oxygen. HEAD, EYES, EARS, NOSE, AND THROAT: Normocephalic, atraumatic. NECK: Supple. HEART: Normal first and second heart sounds. No gallop, rub or murmur. CHEST: Clear to auscultation. No crepitation or rhonchi. ABDOMEN: Distended, soft, nontender. NEUROLOGIC: He is awake, alert, responding appropriately. All cranial nerves intact. He moves extremities without difficulty. GENITOURINARY: He has an indwelling Campos catheter. His intake was 960, output was 1550. LABORATORY DATA: As of this morning, his white cell count was 16,900, hemoglobin 7.5, hematocrit 24.5, MCV was 86 and platelet count of 301,000. His chemistry showed a serum sodium 144, potassium 3.8, chloride 107, bicarbonate 30, anion gap of 7, BUN 24, creatinine 1.7. Estimated GFR was 38 mL per minute. His glucose 91, calcium was 8.5. Total bilirubin, AST, ALT, alkaline phosphatase were normal. Total protein 5.3, albumin 2. ASSESSMENT: 1. Acute hypoxic respiratory failure, improved. He is now maintaining his oxygen saturation at 99% on 2 liters of oxygen by nasal cannula. 2. Acute on chronic kidney injury, improving. His creatinine is down from 3.4 to 1.7. 3. Anemia that is normochromic normocytic with a component of blood loss. His hemoglobin and hematocrit stabilized around 8 and 24. 4. He has chronic lymphatic leukemia. 5. He has bladder cancer with bilateral hydronephrosis, although according to Dr. Hogan, his urologist, there is no evidence of recurrence of the tumor; however, he has lots of inflammatory changes in his bladder. 6. Pneumothorax that required chest tube placement and removal while at [facility]. 7. Paroxysmal atrial fibrillation, currently rate controlled. He is not a candidate for anticoagulation as he has hematuria. 8. Urinary retention for which he has an indwelling Campos catheter. His urologist recommended that he keeps his catheter indefinitely. 9. He has bilateral lower lobe infiltrate. Urine culture and blood culture has grown Pseudomonas aeruginosa that is sensitive to cefepime and Zosyn. If and when he gets discharged, he should continue on cefepime 500 mg IV daily for 2 weeks. 10. The patient has non-ST segment elevation myocardial infarction, likely due to type 2 demand ischemia. PLAN: Continue with IV antibiotic. Continue with pain management. Continue with physical and occupational therapy. I did put an order for midline and hopefully he can be discharged to shelter facility once he is accepted. LEWIS/JEM DR: Jaswant TID: [id number]
--- NOTE | 2021-07-04 14:22 | NUR ---
Procedure: Following complete explanation of the PICC procedure including the indications, risks, and potential complications, informed consent was obtained. The possibility for infection was discussed along with signs, symptoms, and prevention. All the [] questions were answered. Written and verbal patient education was provided. Hand hygiene performed. Standardized central line checklist was utilized. The patient was placed in the supine position, the arm was prepped with chlorhexidine and patient draped with maximum sterile barrier. [] mL 1% lidocaine was infiltrated into the skin to provide local anesthesia. A thorough assessment of [] upper extremity completed. Using real-time ultrasound guidance and standardized micro puncture set, the [] vein was punctured and a peel away sheath was placed using the modified Seldinger technique. A tip location device was used to ensure adequate catheter placement. The catheter was secured using a securement device and an antimicrobial patch was applied directly on the insertion site followed by a transparent dressing. All ports withdraw blood and flush without resistance. Patient tolerated the procedure without apparent complication(s). [] Lumen Power PICC placement successful and uncomplicated. Placement verified by EKG tip confirmation system and/or chest x-ray. Tip located in the [] Complications: []
[2021-07-04 15:00] VITALS: BP 172/76
--- NOTE | 2021-07-04 16:45 | NUR ---
DISCHARGED PATIENT TO [facility]. CORDON AND RIGHT UPPER ARM MID LINE IV ACCESS INTACT. DISCHARGE INSTRUCTIONS GIVEN TO NURSING STAFF AT [facility]. PIV FROM LEFT ARM DC'D AND HEART MONITOR REMOVED. PATIENT OFF UNIT PER WHEELCHAIR PER TRANSPORTATION FROM [facility].
== END 2021-07-04 16:48 | DRG 871 ==
LOC: ER 16:57 → 6 SOUTH 23:45
PROVIDERS: ADMIT Internal Medicine; ATTEND Internal Medicine
PROC: 5A09357 Assistance with Respiratory Ventilation, Less than 24 Consecutive Hours, Continuous Positive Airway Pressure (ICD-10-PCS; 2021-06-24)
PROC: 02HV33Z Insertion of Infusion Device into Superior Vena Cava, Percutaneous Approach (ICD-10-PCS; principal; 2021-07-04)
PROC: B548ZZA Ultrasonography of Superior Vena Cava, Guidance (ICD-10-PCS; 2021-07-04)
DX: A41.52 Sepsis due to Pseudomonas (principal); J96.21 Acute and chronic respiratory failure with hypoxia; I50.23 Acute on chronic systolic (congestive) heart failure; I21.A1 Myocardial infarction type 2; C91.10 Chronic lymphocytic leukemia of B-cell type not having achieved remission; G93.40 Encephalopathy, unspecified; I13.0 Hypertensive heart and chronic kidney disease with heart failure and stage 1 through stage 4 chronic kidney disease, or unspecified chronic kidney disease; N13.6 Pyonephrosis; N17.9 Acute kidney failure, unspecified; C67.9 Malignant neoplasm of bladder, unspecified; D50.0 Iron deficiency anemia secondary to blood loss (chronic); E78.5 Hyperlipidemia, unspecified; I25.10 Atherosclerotic heart disease of native coronary artery without angina pectoris; I25.2 Old myocardial infarction; I48.0 Paroxysmal atrial fibrillation; J44.9 Chronic obstructive pulmonary disease, unspecified; K21.9 Gastro-esophageal reflux disease without esophagitis; K57.90 Diverticulosis of intestine, part unspecified, without perforation or abscess without bleeding; N18.30 Chronic kidney disease, stage 3 unspecified; N31.9 Neuromuscular dysfunction of bladder, unspecified; R13.10 Dysphagia, unspecified; R31.0 Gross hematuria; Z51.5 Encounter for palliative care; Z66 Do not resuscitate; Z85.51 Personal history of malignant neoplasm of bladder; Z95.1 Presence of aortocoronary bypass graft; Z88.8 Allergy status to other drugs, medicaments and biological substances; L89.152 Pressure ulcer of sacral region, stage 2
CPT/HCPCS: 36415; 36569; 36600; 71045; 71250; 74176; 76770; 80048; 80053; 80061; 81001; 82553; 82805; 82962; 83605; 83880; 84484; 85007; 85025; 85027; 85379; 85520; 85610; 85730; 87040; 87077; 87086; 87186; 87205; 87426; 87804; 93005; 93970; 94660; 96361; 96374; J0696; J1170; J1644; J1650; J2543; J7030; U0003; U0005; 97110-GO; 97110-GP; 97530-GO; 97530-GP; 97535-GO; 99285-25; G0378